=== PATIENT | female | born 1945 | race Caucasian/White ===

== ENCOUNTER → 2016-05-01 | Outpatient (CLI) | payer MEDICARE, OTHER ==
[2016-05-01 10:47] LABS: Basophils # (A) 0.1 k/uL (0-0.2); Basophils % (A) 1 %; CHCM 34.1; Eosinophils # (A) 0.1 k/uL (0-0.7); Eosinophils % (A) 2 %; HCT 39.8 % (34.0-46.0); HDW 2.75; HGB 13.3 gm/dL (11.4-16.0); Luc # (Auto) 0.18; Luc % (Auto) 3; Lymphocytes # (A) 2.4 k/uL (1.0-4.8); Lymphocytes % (A) 41 %; MCH 30.6 pg (25.0-35.0); MCHC 33.5 g/dL (31.0-37.0); MCV 91.4 fL (80.0-100.0); Mean Platelet Volume 8.1; Monocytes # (A) 0.4 k/uL (0-1.0); Monocytes % (A) 6 %; Neutrophils # (A) 2.8 k/uL (1.3-7.7); Neutrophils % (A) 47 %; RBC 4.36 m/uL (3.80-5.40); RDW 13.9 % (11.5-15.5); WBC 5.8 k/uL (3.8-10.6); WBC (Perox) 5.79
[2016-05-01 11:11] LABS: ALT 25 U/L (9-52); AST 15 U/L (14-36); Alkaline Phosphatase 47 U/L (38-126); Anion Gap 10 mmol/L; Blood Urea Nitrogen 19 mg/dL (7-17); Calcium 9.2 mg/dL (8.4-10.2); Carbon Dioxide 28 mmol/L (22-30); Chloride 102 mmol/L (98-107); Glucose 102 mg/dL (74-99); Non-African American GFR(MDRD) >60 (>60 ml/min/1.73 sqM); Potassium 3.5 mmol/L (3.5-5.1); Sodium 140 mmol/L (137-145); Total Bilirubin 0.9 mg/dL (0.2-1.3); Total Protein 7.9 g/dL (6.3-8.2)
== END ==
LOC: LABWHC1 09:31
PROVIDERS: ATTEND Internal Medicine
DX: R53.83 Other fatigue (principal); R55 Syncope and collapse; R73.9 Hyperglycemia, unspecified
CPT/HCPCS: 36415; 80053; 83036; 84439; 84443; 85025

== ENCOUNTER → 2016-05-27 | Outpatient (CLI) | payer MEDICARE, OTHER ==
--- NOTE | 2016-05-27 12:23 | US ---
EXAMINATION TYPE: US carotid duplex BILAT DATE OF EXAM: 05/27/2016 11:17 AM COMPARISON: NONE CLINICAL HISTORY: R42 DIZZINESS. no h/o stroke EXAM MEASUREMENTS: RIGHT: Peak Systolic Velocity (PSV) cm/sec ----- Right CCA: 98.4 ----- Right ICA: 93.1 ----- Right ECA: 79.8 ICA/CCA ratio: 0.9 RIGHT: End Diastole cm/sec ----- Right CCA: 24.6 ----- Right ICA: 39.1 ----- Right ECA: 13.5 LEFT: Peak Systolic Velocity (PSV) cm/sec ----- Left CCA: 80.7 ----- Left ICA: 106.6 ----- Left ECA: 82.2 ICA/CCA ratio: 1.3 LEFT: End Diastole cm/sec ----- Left CCA: 27.9 ----- Left ICA: 35.4 ----- Left ECA: 21.6 VERTEBRALS (direction of flow): Right Vertebral: Antegrade Left Vertebral: Antegrade Mild homogeneous plaque with no significant stenosis seen Grayscale images show no significant focal plaque in carotid bulb levels bilaterally. Velocity measur ements and ratios remain within normal limits. IMPRESSION: No hemodynamically significant stenosis is seen in either internal carotid artery.
== END | disposition home or self-care (01) ==
LOC: RADUSWWP 10:51
PROVIDERS: ATTEND Family Medicine
DX: R42 Dizziness and giddiness (principal)
CPT/HCPCS: 93880

== ENCOUNTER → 2016-06-05 | Outpatient (CLI) | payer MEDICARE, OTHER ==
--- NOTE | 2016-06-05 11:59 | XR ---
EXAMINATION TYPE: XR cervical spine limited DATE OF EXAM: 06/05/2016 11:44 AM COMPARISON: NONE HISTORY: Cervical lumbar pain TECHNIQUE: 3 view cervical spine FINDINGS: Facet changes are evident slightly greater on the right side. Degenerative disc changes are present C5-6 C6-7. Posterior endplate spurring is present C6-7. Vertebral body spurring is present C 5-C7 anteriorly. Posterior spinal lamellar line is intact. IMPRESSION: 1. Degenerative disc changes mid to lower cervical spine
--- NOTE | 2016-06-05 12:10 | XR ---
EXAMINATION TYPE: XR lumbar spine 2 or 3V DATE OF EXAM: 06/05/2016 11:44 AM COMPARISON: NONE HISTORY: Right hip pain lumbar spine pain TECHNIQUE: 3 view lumbar spine FINDINGS: Mild degenerative disc change is present L1-L2. Spondylosis is present. Vascular calcificat ions noted within the aorta. IMPRESSION: 1. Mild degenerative change lumbar spine
== END | disposition home or self-care (01) ==
LOC: RADXRMAIN 11:15
PROVIDERS: ATTEND Chiropractor
DX: M50.322 Other cervical disc degeneration at C5-C6 level (principal); M51.36 Other intervertebral disc degeneration, lumbar region
CPT/HCPCS: 72040; 72100

== ENCOUNTER → 2017-10-13 | Outpatient (CLI) | payer MEDICARE ==
--- NOTE | 2017-10-21 14:11 | MM ---
Reason for exam: screening (asymptomatic). Last mammogram was performed 3 years and 1 month ago. History: Patient is postmenopausal. Physical Findings: A clinical breast exam by your physician is recommended on an annual basis and results should be correlated with mammographic findings. MG 3D Screening Mammo W/Cad Bilateral CC and MLO view(s) were taken. Prior study comparison: September 10, 2014, mammogram, performed at [facility]. June 29, 2013, mammogram, performed at [facility]. The breast tissue is heterogeneously dense. This may lower the sensitivity of mammography. No significant changes when compared with prior studies. ASSESSMENT: Benign, BI-RAD 2 RECOMMENDATION: Routine screening mammogram of both breasts in 1 year.
== END | disposition home or self-care (01) ==
LOC: RADMAMWWP 09:09
PROVIDERS: ATTEND Internal Medicine
DX: Z12.31 Encounter for screening mammogram for malignant neoplasm of breast (principal)
CPT/HCPCS: 77063; 77067

== ENCOUNTER → 2018-04-01 | Outpatient (CLI) | payer MEDICARE ==
[2018-04-01 09:18] LABS: Basophils % (A) 0 %; Eosinophils # (A) 0.2 k/uL (0-0.7); Eosinophils % (A) 3 %; HGB 13.2 gm/dL (11.4-16.0); Lymphocytes # (A) 1.9 k/uL (1.0-4.8); Lymphocytes % (A) 34 %; MCH 29.8 pg (25.0-35.0); MCHC 32.9 g/dL (31.0-37.0); MCV 90.6 fL (80.0-100.0); Mean Platelet Volume 7.7; Monocytes # (A) 0.3 k/uL (0-1.0); Monocytes % (A) 6 %; Neutrophils % (A) 54 %; Platelet Count 203 k/uL (150-450); RBC 4.42 m/uL (3.80-5.40); RDW 14.1 % (11.5-15.5); WBC 5.5 k/uL (3.8-10.6)
[2018-04-01 19:12] LABS: Anion Gap 6.1 mmol/L (4.00-12.00); Calcium 9.1 mg/dL (8.7-10.3); Carbon Dioxide 29.9 mmol/L (21.6-31.8); LDL Cholesterol,Calculated 101.6 mg/dL (0.0-131.0); Potassium 3.6 mmol/L (3.5-5.5); VLDL Calculation 25.4 mg/dL (5.00-40.00)
== END | disposition home or self-care (01) ==
LOC: LABWHC1 07:41
PROVIDERS: ATTEND Nurse Practitioner Adult Health
DX: Z00.01 Encounter for general adult medical examination with abnormal findings (principal); I10 Essential (primary) hypertension; E03.9 Hypothyroidism, unspecified; E66.09 Other obesity due to excess calories; R53.83 Other fatigue
CPT/HCPCS: 36415; 80048; 80061; 82607; 84443; 85025

== ENCOUNTER → 2018-11-11 | Outpatient (CLI) | payer MEDICARE ==
--- NOTE | 2018-11-11 10:39 | XR ---
Right shoulder HISTORY: Shoulder pain 4 views of the right shoulder Bone mineralization, joint spaces and alignment are maintained. Question a focus of increased calcifi cation at the superior glenohumeral joint seen on the external rotated view. Distal acromion is down turned. There is some arthropathy present at the acromioclavicular joint. Right lung apex as visualiz ed is normal. IMPRESSION: Correlate for impingement. Difficult to exclude loose body, shoulder CT or MRI may be of benefit.
--- NOTE | 2018-11-11 10:43 | XR ---
Right RIBS HISTORY: Pleurodynia 4 views of the right RIBS Bone mineralization is maintained. No evident displaced rib fracture. Right lung is unremarkable as s een. Degenerative disc changes are noted in the visualized spine. Ossific density at the level the an terior right fourth rib, posterior right eighth rib intersection may be related to the scapula. IMPRESSION: Chest CT may be of benefit to further assess bony density seen overlying the ribs., bone scan could be performed for increased sensitivity if nondisplaced rib fracture is suspected clinicall y.
== END ==
LOC: RADXRMAIN 08:28
PROVIDERS: ATTEND Internal Medicine
DX: M25.511 Pain in right shoulder (principal); R07.81 Pleurodynia

== ENCOUNTER → 2018-11-22 | Outpatient (CLI) | payer MEDICARE ==
--- NOTE | 2018-11-22 09:47 | BD ---
EXAMINATION TYPE: Axial Bone Density DATE OF EXAM: 11/22/2018 COMPARISON: NONE CLINICAL HISTORY: Z 78.0 Height: 5 FT 4 1/4 IN Weight: 195 FRAX RISK QUESTIONS: Family History (Parent hip fracture): YES Secondary Osteoporosis: RISK FACTORS HISTORY OF: Active: YES Postmenopausal woman: AGE 52 Lost more than 2 inches in height since high school: YES MEDICATIONS: Additional Medications: LOSARTIN, BABY ASPIRIN Additional History: EXAM MEASUREMENTS: Bone mineral densitometry was performed using the e[employer]ruction by [employer]. Bone mineral density as measured about the Lumbar spine is: ----- L1-L4(G/cm2): 1.316 T Score Values are as follows: ----- L2: 0.4 ----- L3: 1.3 ----- L4: 1.8 ----- L1-L4: 1.1 BASELINE Bone mineral density about the R hip (g/cm2): 0.992 Bone mineral density about the L hip (g/cm2): 1.070 T Score values are as follows: -----R Neck: -0.3 -----L Neck: 0.2 -----R Total: 0.5 -----L Total: 0.9 BASELINE IMPRESSION: Normal (Values between +1 and -1 indicate normal bone mass). Consider repeating this study in 5 year s or sooner if there is some new clinical indication. NOTE: T-SCORE=SD OF THE YOUNG ADULT MEAN.
--- NOTE | 2018-11-24 12:15 | MM ---
Reason for exam: screening (asymptomatic). Last mammogram was performed 1 year and 1 month ago. History: Patient is postmenopausal. Physical Findings: A clinical breast exam by your physician is recommended on an annual basis and results should be correlated with mammographic findings. MG 3D Screening Mammo W/Cad Bilateral CC and MLO view(s) were taken. Prior study comparison: October 13, 2017, bilateral MG 3d screening mammo w/cad. September 10, 2014, mammogram, performed at [facility]. The breast tissue is extremely dense which could obscure a lesion on mammography. Left central distortion 2.5cm from nipple at anterior depth. ASSESSMENT: Incomplete: need additional imaging evaluation, BI-RAD 0 RECOMMENDATION: Special view mammogram of the left breast. If lesion persists on supplemental views, image directed ultrasound is recommended. [facility] will attempt to contact patient to return for supplemental views and ultrasound if indicated.
== END ==
LOC: RADMAMWWP 08:47
PROVIDERS: ATTEND Internal Medicine
DX: Z12.31 Encounter for screening mammogram for malignant neoplasm of breast (principal); R92.8 Other abnormal and inconclusive findings on diagnostic imaging of breast; Z78.0 Asymptomatic menopausal state
CPT/HCPCS: 77063; 77067; 77080

== ENCOUNTER → 2018-11-26 | Outpatient (CLI) | payer MEDICARE ==
--- NOTE | 2018-11-26 11:58 | MR ---
EXAMINATION TYPE: MR shoulder RT wo con DATE OF EXAM: 11/26/2018 COMPARISON: X-ray 11/11/2018 HISTORY: Rt shoulder pain x 1 year, no trauma TECHNIQUE: Multiplanar, multisequence imaging of the right shoulder is performed without contrast. FINDINGS: There is a complete through thickness tear of the supraspinatus tendon with retraction the level the acromion. There is a near complete through thickness tear of the infraspinatus tendon with a few fibers remain intact. Subscapularis tendon appears intact with increased signal near its insertion which may represent tend inopathy or partial tear. There is arthropathy of the AC joint with a spur extending off the acromium likely results in impinge ment etiology of the rotator cuff tear. Glenohumeral ligaments are intact. There is mild narrowing of the glenohumeral joint. Cystic changes involving the glenoid are noted and there is narrowing of the glenohumeral joint. No sizable joint ef fusion. Suprascapular Notch has a normal appearance. Bicipital tendon well situated the bicipital groove. There is increased signal within the intracapsul ar portion of the biceps tendon suggestive of tendinopathy and possible split tear. A small amount of fluid in the subacromial subdeltoid bursa. Increased signal involving the superior labrum suspicious for tear. IMPRESSION: 1. Complete through thickness tear with retraction of the supraspinatus tendon as discussed above. 2. Near complete through thickness tear of the infraspinatus tendon with a few fibers remaining at th e insertion as discussed above. 3. Increased signal within the biceps tendon within the intracapsular portion may be on the basis of tendinopathy. Split tear in the differential diagnosis. 4. Arthropathy of the glenohumeral joint and AC joint correlate for impingement. 5. Suspicion of a anterior superior labral tear.
== END | disposition home or self-care (01) ==
LOC: RADMRIMAIN 09:32
PROVIDERS: ATTEND Nurse Practitioner Adult Health
DX: M75.121 Complete rotator cuff tear or rupture of right shoulder, not specified as traumatic (principal); S46.811A Strain of other muscles, fascia and tendons at shoulder and upper arm level, right arm, initial encounter; M19.011 Primary osteoarthritis, right shoulder

== ENCOUNTER → 2018-12-01 | Outpatient (CLI) | payer MEDICARE ==
--- NOTE | 2018-12-01 14:20 | MM ---
Reason for exam: additional evaluation requested from abnormal screening. Last mammogram was performed less than 1 month ago. History: Patient is postmenopausal. Physical Findings: Nurse did not find any significant physical abnormalities on exam. MG 3D Work Up W/Cad LT CC and MLO view(s) were taken of the left breast. Prior study comparison: November 22, 2018, bilateral MG 3d screening mammo w/cad. October 13, 2017, bilateral MG 3d screening mammo w/cad. The breast tissue is heterogeneously dense. This may lower the sensitivity of mammography. The previously seen abnormality resolves on additional views and appears as fibroglandular tissue compatible with summation. These results were verbally communicated with the patient and result sheet given to the patient on 12/01/18. ASSESSMENT: Negative, BI-RAD 1 RECOMMENDATION: Return to routine screening mammogram schedule for both breasts.
== END | disposition home or self-care (01) ==
LOC: RADMAMWWP 13:25
PROVIDERS: ATTEND Internal Medicine
DX: R92.8 Other abnormal and inconclusive findings on diagnostic imaging of breast (principal)
CPT/HCPCS: 77065; G0279; 77061

== ENCOUNTER → 2018-12-07 | Outpatient (CLI) | payer MEDICARE ==
--- NOTE | 2018-12-07 10:17 | CT ---
EXAMINATION TYPE: CT abdomen pelvis w con DATE OF EXAM: 12/07/2018 HISTORY: Lower abd pain, UTI CT DLP: 1445mGycm Automated Exposure Control for Dose Reduction was Utilized. CONTRAST: CT scan of the abdomen and pelvis is performed with IV Contrast, patient injected with 100 mL of Isov ue 300. COMPARISON: None. FINDINGS: LUNG BASES: No significant abnormality is appreciated. LIVER/GB: Liver is diffusely low dense suggesting fatty infiltration. PANCREAS: No significant abnormality is seen. SPLEEN: No significant abnormality is seen. ADRENALS: No significant abnormality is seen. KIDNEYS: Subcentimeter low dense lesion laterally left kidney midpole level series 7 image 34 too sma ll to further characterize but presumed benign. Symmetric corticomedullary uptake and excretion witho ut hydronephrosis. No suspicious bladder wall thickening. BOWEL: Oral contrast reaches level of the mid sigmoid colon. There is no suspicious small or large jose wel dilatation. There is prominent diverticulosis mid to distal sigmoid colon level without CT eviden ce for acute diverticulitis. UTERUS/ADNEXA: Anteverted uterus. LYMPH NODES: No greater than 1cm abdominal or pelvic lymph nodes are appreciated. OSSEOUS STRUCTURES: Osncxxwi-eu-hxfjea multilevel anterior and lateral spurring in the mid to lower t horacic spine is present. Moderate narrowing and acetabular spurring both hips. OTHER: No significant additional abnormality is seen. IMPRESSION: Sigmoid colonic diverticulosis without CT evidence for acute diverticulitis. No suspiciou s acute findings are evident.
== END | disposition home or self-care (01) ==
LOC: RADCTMAIN 07:53
PROVIDERS: ATTEND Internal Medicine
DX: K57.30 Diverticulosis of large intestine without perforation or abscess without bleeding (principal); R63.4 Abnormal weight loss
CPT/HCPCS: 82565; 84520; 74177; 36415; Q9967 ×2

== ENCOUNTER → 2019-12-14 | Outpatient (CLI) | payer MEDICARE ==
--- NOTE | 2019-12-14 13:06 | US ---
EXAMINATION TYPE: US abdomen complete DATE OF EXAM: 12/14/2019 COMPARISON: CT abdomen pelvis 12/07/2018 CLINICAL HISTORY: R10.2 R10.31 RLQ pain R10.32. Generalized lower abdomen pain. NPO. EXAM MEASUREMENTS: Liver Length: 15.3 cm Gallbladder Wall: 0.1 cm CBD: 0.7 cm Spleen: 10.7 cm Right Kidney: 10.3 x 4.7 x 4.7 cm Left Kidney: 10.4 x 4.9 x 5.2 cm Pancreas: Normal. Liver: Increased attenuation, decreased visualization of vessels consistent with fatty infiltration. There is poor posterior beam penetration of the posterior liver due to fatty infiltration. Gallbladder: Cholelithiasis. No gallbladder wall thickening or pericholecystic edema. Sweatband Maker reports negative sonographic Melendez sign. CBD: Normal. Spleen: Normal. Right Kidney: No hydronephrosis. Left Kidney: No hydronephrosis. Upper IVC: Obscured by overlying bowel gas Abd Aorta: Nonaneurysmal. IMPRESSION: 1. Markedly fatty liver. Limited visualization of the posterior liver due to fatty infiltration. 2. Cholelithiasis. No acute cholecystitis.
== END | disposition home or self-care (01) ==
LOC: RADUSWWP 08:31
PROVIDERS: ATTEND Family Medicine
DX: K76.0 Fatty (change of) liver, not elsewhere classified (principal); K80.20 Calculus of gallbladder without cholecystitis without obstruction
CPT/HCPCS: 76700

== ENCOUNTER → 2019-12-22 | Outpatient (CLI) | payer MEDICARE ==
--- NOTE | 2019-12-23 15:29 | US ---
EXAMINATION TYPE: US transvaginal DATE OF EXAM: 12/22/2019 COMPARISON: NONE CLINICAL HISTORY: R10.2 Pelvic Pain. Pelvic pain TECHNIQUE: Transvaginal (TV). Date of LMP: unknown EXAM MEASUREMENTS: Uterus: 6.4 x 2.7 x 3.8 cm Endometrial Stripe: 0.2 cm 1. Uterus: Anteverted heterogeneous, multiple calcifications, nabothian cyst 2. Endometrium: appears wnl 3. Right Ovary/adnexa: Unilocular simple cystic area right adnexa = 1.8 x 1.4 x 1.4cm, unable to vis ualize any ovarian tissue 4. Left Ovary: Obscured by overlying bowel gas 5. Left Adnexa: wnl 6. Posterior cul-de-sac: wnl IMPRESSION: 1. Right adnexal 1.8 cm simple benign appearing cyst. Per The Society of Radiologists in Ultrasound 2 019 recommendations, no additional follow-up is recommended. 2. Nonvisualization of the left ovary. 3. Endometrial stripe 2 mm, within normal limits. 4. Calcifications of the uterus may represent fibroid changes. 5. No pelvic free fluid.
== END | disposition home or self-care (01) ==
LOC: RADUSWWP 15:28
PROVIDERS: ATTEND Nurse Practitioner Adult Health
DX: N83.8 Other noninflammatory disorders of ovary, fallopian tube and broad ligament (principal)
CPT/HCPCS: 76830

== ENCOUNTER → 2020-02-05 | Outpatient (CLI) | payer MEDICARE ==
--- NOTE | 2020-02-06 12:38 | MM ---
Reason for exam: screening (asymptomatic). Last mammogram was performed 1 year and 2 months ago. History: Patient is postmenopausal. Took hormonal contraceptives for 8 years. Physical Findings: A clinical breast exam by your physician is recommended on an annual basis and results should be correlated with mammographic findings. MG 3D Screening Mammo W/Cad Bilateral CC and MLO view(s) were taken. Prior study comparison: December 01, 2018, left breast MG 3d work up w/cad LT. November 22, 2018, bilateral MG 3d screening mammo w/cad. The breast tissue is heterogeneously dense. This may lower the sensitivity of mammography. There is no discrete abnormality. No significant changes when compared with prior studies. ASSESSMENT: Negative, BI-RAD 1 RECOMMENDATION: Routine screening mammogram of both breasts in 1 year.
== END | disposition home or self-care (01) ==
LOC: RADMAMWWP 07:04
PROVIDERS: ATTEND Family Medicine
DX: Z12.31 Encounter for screening mammogram for malignant neoplasm of breast (principal)
CPT/HCPCS: 77063; 77067

== ENCOUNTER → 2021-04-28 | Outpatient (CLI) | payer MEDICARE ==
--- NOTE | 2021-04-28 10:25 | US ---
EXAMINATION TYPE: US transvaginal DATE OF EXAM: 04/28/2021 COMPARISON: US 2019 CLINICAL HISTORY: R10.9 ABD/PELVIC PAIN,R10.2 FEMALE PELVIC PAIN. Intermittent back pain and pelvic c ramping x couple months, 2, para 2, history of tubal ligation TECHNIQUE: Transvaginal exam only per ordering physician Date of LMP: 1999 EXAM MEASUREMENTS: Uterus: 6.1 x 2.6 x 3.4 cm Endometrial Stripe: 0.4 cm Right Ovary: not seen Left Ovary: not seen 1. Uterus: anteverted, heterogeneous, multiple calcifications 2. Endometrium: appears wnl 3. Right Ovary: not seen 4. Left Ovary: not seen 5. Bilateral Adnexa: wnl 6. Posterior cul-de-sac: wnl IMPRESSION: Heterogenous uterine myometrium with multiple calcifications seen.
--- NOTE | 2021-04-28 10:25 | US ---
EXAMINATION TYPE: US abdomen complete DATE OF EXAM: 04/28/2021 COMPARISON: US 2019 CLINICAL HISTORY: R10.84 ABD PAIN. Intermittent back pain and pelvic cramping x couple months EXAM MEASUREMENTS: Liver Length: 13.8 cm Gallbladder Wall: 0.2 cm CBD: 0.7 cm Spleen: 10.6 cm Right Kidney: 10.1 x 5.2 x 4.8 cm Left Kidney: 11.0 x 4.7 x 5.1 cm Pancreas: hyperechoic Liver: attenuating, heterogeneous Gallbladder: cholelithiasis Evidence for sonographic Melendez's sign: no CBD: dilated Spleen: wnl Right Kidney: wnl Left Kidney: 0.6cm echogenic focus superior pole Upper IVC: wnl Abd Aorta: wnl The intrahepatic portion of the IVC and proximal abdominal aorta are within normal limits. The visua lized portions of the pancreas are homogenous. The spleen is unremarkable. Kidneys are symmetric an d free of hydronephrosis. No renal lesions are seen. IMPRESSION: 1. Heterogeneity of the liver may reflect fatty liver. 2. Cholelithiasis. 3. Nonobstructing left renal calculus.
== END | disposition home or self-care (01) ==
LOC: RADUSWWP 09:23
PROVIDERS: ATTEND Family Medicine
DX: K80.20 Calculus of gallbladder without cholecystitis without obstruction (principal); N20.0 Calculus of kidney; N85.8 Other specified noninflammatory disorders of uterus
CPT/HCPCS: 76700; 76830

== ENCOUNTER → 2021-05-08 | Outpatient (CLI) | payer MEDICARE ==
--- NOTE | 2021-05-09 10:54 | CT ---
EXAMINATION TYPE: CT abdomen pelvis wo/w con DATE OF EXAM: 05/08/2021 COMPARISON: 12/07/2018 HISTORY: Lower back pain x [address] DLP: 2592.7 mGycm Automated exposure control for dose reduction was used. CONTRAST: CT scan of the abdomen pelvis is performed with IV Contrast, patient injected with 100ml mL of Isovue 300. FINDINGS- LUNG BASES- No significant abnormality is appreciated. LIVER/GB- No gross abnormality is appreciated. PANCREAS- No gross abnormality is seen. SPLEEN- No gross abnormality is seen. ADRENALS- No gross abnormality is seen. KIDNEYS/BLADDER- no hydronephrosis or nephrolithiasis. Subcentimeter hypodensity left kidney too smal l to characterize. Finding is stable and therefore likely benign. BOWEL-bowel gas pattern nonspecific. Changes of diverticulosis appendix normal. Small hiatal hernia n oted. LYMPH NODES- No greater than 1cm abdominal or pelvic lymph nodes areappreciated. OSSEOUS STRUCTURES-multilevel hypertrophic and degenerative change of the spine. There is facet arthr opathy particularly noted in the lower lumbar spine with grade 1 anterolisthesis L4 on L5. Correlate for canal stenosis and foraminal encroachment.. OTHER- aorta of normal caliber with atherosclerotic changes. Stable appearing right adnexal cyst lik luli ovarian measuring 1.7 cm. IMPRESSION- 1. Multilevel degenerative disc disease and facet arthropathy with grade 1 anterolisthesis L4 on L5. Suspect canal stenosis and bilateral foraminal encroachment. 2. No evidence of renal stone or hydronephrosis. 3. Diverticulosis 4. Small hiatal hernia
== END | disposition home or self-care (01) ==
LOC: RADCTMAIN 16:45
PROVIDERS: ATTEND Family Medicine
DX: M51.36 Other intervertebral disc degeneration, lumbar region (principal); M47.816 Spondylosis without myelopathy or radiculopathy, lumbar region; M43.16 Spondylolisthesis, lumbar region; K57.90 Diverticulosis of intestine, part unspecified, without perforation or abscess without bleeding; K44.9 Diaphragmatic hernia without obstruction or gangrene
CPT/HCPCS: 82565; 84520; 74178; 36415; Q9967

== ENCOUNTER → 2021-08-28 | Outpatient (CLI) | payer MEDICARE ==
[2021-08-28 10:46] LABS: Basophils # (A) 0.02 X 10*3/uL (0.00-0.10); Basophils % (A) 0.3 %; Eosinophils # (A) 0.17 X 10*3/uL (0.04-0.35); Eosinophils % (A) 2.4 %; HCT 40.3 % (37.2-46.3); HGB 13.3 g/dL (12.0-15.0); Immature Grans, Automated 0.4 %; Lymphocytes % (A) 39.9 %; MCH 30.4 pg (27.0-32.0); Mean Platelet Volume 10.8 fL (9.5-12.2); Monocytes % (A) 8.6 %; NRBC Per 100 WBC 0 /100 WBCS (0.0-0.0); Neutrophils # (A) 3.39 X 10*3/uL (1.80-7.70); Neutrophils % (A) 48.4 %; Platelet Count 219 X 10*3/uL (140-440); RBC 4.38 X 10*6/uL (4.10-5.20); RDW 14.3 % (11.5-14.5); WBC 7.01 X 10*3/uL (4.50-10.00)
[2021-08-28 11:06] LABS: ALT 22 U/L (8-44); AST 16 U/L (13-35); African American GFR (CKD) 78.8 (60.0-200.0); Albumin 3.9 g/dL (3.8-4.9); Albumin/Globulin Ratio 1.16 (1.60-3.17); Alkaline Phosphatase 45 U/L (41-126); BUN/Creat Ratio 18.47 Ratio (12.00-20.00); Blood Urea Nitrogen 15.7 mg/dL (9.0-27.0); Calcium 9.4 mg/dL (8.7-10.3); Carbon Dioxide 25.8 mmol/L (20.0-27.5); Chloride 103 mmol/L (96-109); Chol/HDL Ratio 4.73 Ratio; Globulin 3.4 g/dL (1.6-3.3); Glucose 117 mg/dL (70-110); LDL Cholesterol,Calculated 115.1 mg/dL (0.0-131.0); Magnesium 2.2 mg/dL (1.5-2.4); Potassium 3.8 mmol/L (3.5-5.5); Sodium 140 mmol/L (135-145); Total Protein 7.3 g/dL (6.2-8.2)
--- NOTE | 2021-08-29 08:04 | MM ---
Reason for Exam: Screening (asymptomatic). Last mammogram was performed 1 year(s) and 7 month(s) ago. Patient History: Menarche at age 16. First Full-Term at age 20. Postmenopausal. Patient used Hormonal Contraceptives for 8 years. Risk Values: Melita 5 year model risk: 1.2%. NCI Lifetime model risk: 2.9%. Prior Study Comparison: 11/22/2018 Bilateral Screening Mammogram, [facility]. 12/01/2018 Left Diagnostic Mammogram, [facility]. 02/05/2020 Bilateral Screening Mammogram, [facility]. Tissue Density: The breast tissue is heterogeneously dense. This may lower the sensitivity of mammography. Findings: Analyzed By CAD. Tiny well-defined round mass left breast upper outer aspect is stable from prior mammograms. There is no suspicious group of microcalcifications or new suspicious mass in either breast. Overall Assessment: Negative, BI-RAD 1 Management: Screening Mammogram of both breasts in 1 year. A clinical breast exam by your physician is recommended on an annual basis and results should be correlated with mammographic findings. Electronically signed and approved by: [place] M.D.
== END | disposition home or self-care (01) ==
LOC: RADMAMWWP 06:43
PROVIDERS: ATTEND Internal Medicine
DX: Z12.31 Encounter for screening mammogram for malignant neoplasm of breast (principal); Z78.0 Asymptomatic menopausal state
CPT/HCPCS: 77063; 77067; 80053; 80061; 82533; 83036; 83735; 84443; 85025

== ENCOUNTER → 2021-09-15 | Outpatient (CLI) | payer MEDICARE ==
--- NOTE | 2021-09-15 09:25 | US ---
EXAMINATION TYPE: US carotid duplex BILAT DATE OF EXAM: 09/15/2021 COMPARISON: Carotid US 05/27/2016. CLINICAL HISTORY: R42 LIGHT HEADED. Dizziness. TECHNIQUE: Carotid duplex ultrasound examination. Indirect Doppler criteria was utilized. FINDINGS: EXAM MEASUREMENTS: RIGHT: Peak Systolic Velocity (PSV) cm/sec ----- Right CCA: 100.9 ----- Right ICA: 119.5 ----- Right ECA: 101.7 ICA/CCA ratio: 1.2 RIGHT: End Diastole cm/sec ----- Right CCA: 23.5 ----- Right ICA: 39.4 ----- Right ECA: 8.3 LEFT: Peak Systolic Velocity (PSV) cm/sec ----- Left CCA: 85.3 ----- Left ICA: 122.8 ----- Left ECA: 83.8 ICA/CCA ratio: 1.4 LEFT: End Diastole cm/sec ----- Left CCA: 23.4 ----- Left ICA: 43.6 ----- Left ECA: 10.5 VERTEBRALS (direction of flow): Right Vertebral: Antegrade Left Vertebral: Antegrade Rhythm: Normal Grayscale images show no significant focal plaque bilateral carotid bulb level. IMPRESSION: No hemodynamically significant stenosis in either internal carotid artery. Criteria for Assigning % of Stenosis / Diameter reduction (Estimation based on the indirect measurements of the internal carotid artery velocities (ICA PSV). 1. Normal (no stenosis)=ICA PSV < 125 cm/s: ratio < 2.0: ICA EDV<40 cm/s. 2. Less than 50% stenosis=ICA PSV < 125 cm/s: ratio < 2.0: ICA EDV<40 cm/s. 3. 50 to 69% stenosis=ICA PSV of 125 to 230 cm/s: ration 2.0 ? 4.0: ICA EDV 40-100 cm/s. 4. Greater than 70% stenosis to near occlusion= ICA PSV > 230 cm/s: ratio > 4.0: ICA EDV > 100 cm/s. 5. Near occlusion= ICA PSV velocities may be low or undetectable: variable ratio and ICA EDV. 6. Total occlusion=unable to detect flow.
--- NOTE | 2021-09-15 09:38 | CA ---
Transthoracic Echo Report Name: Rhonda Treviño Age: 75 Gender: F : 1945 Exam Date: 09/15/2021 08:38 Exam Location: [facility] Ht (in): 66 Wt (lb): 206 Ordering Physician: Miguel Simental MD Attending/Referring Phys: Miguel Simental MD Paving Supervisor Morenita Benitez, SRINIVAS Procedure CPT: Indications: R42 lightheadedness Cardiac Hx: Technical Quality: Good Contrast 1: Total Dose (mL): Contrast 2: Total Dose (mL): MEASUREMENTS (Male / Female) Normal Values 2D ECHO LV Diastolic Diameter PLAX 5.2 cm 4.2 - 5.9 / 3.9 - 5.3 cm LV Systolic Diameter PLAX 3.8 cm IVS Diastolic Thickness 0.8 cm 0.6 - 1.0 / 0.6 - 0.9 cm LVPW Diastolic Thickness 1.3 cm 0.6 - 1.0 / 0.6 - 0.9 cm LV Relative Wall Thickness 0.4 RV Internal Dim ED PLAX 3.0 cm LA Systolic Diameter LX 4.0 cm 3.0 - 4.0 / 2.7 - 3.8 cm LA Volume 50.9 cm??? 18 - 58 / 22 - 52 cm??? M-MODE Aortic Root Diameter MM 2.6 cm LA Systolic Diameter MM 3.8 cm LA Ao Ratio MM 1.5 AV Cusp Separation MM 1.9 cm DOPPLER MV Area PHT 3.8 cm??? Mitral E Point Velocity 59.3 cm/s Mitral A Point Velocity 86.1 cm/s Mitral E to A Ratio 0.7 MV Deceleration Time 198.2 ms FINDINGS Left Ventricle Normal left ventricular size, wall thickness, systolic function with no obvious regional wall motion abnormalities. Left ventricular ejection fraction is estimated at 50-55%. Right Ventricle The right ventricle is normal in size and function. Right Atrium The right atrium is normal in size. Left Atrium The left atrium is normal in size. Mitral Valve Structurally normal mitral valve without significant stenosis or prolapse. There is mild mitral regurgitation. Aortic Valve Structurally normal aortic valve without significant sclerosis or stenosis. There is no aortic regurgitation. Tricuspid Valve Structurally normal tricuspid valve without significant stenosis. Pulmonary artery systolic pressure is normal. Pulmonic Valve Structurally normal pulmonic valve without significant stenosis. There is no pulmonic regurgitation. Pericardium Normal pericardium without effusion. Aorta Normal aortic root dimension. CONCLUSIONS Normal LV size and systolic function without segmental wall motion abnormalities No significant valvular abnormalities Previewed by: Dr. Scott Danielson MD (Electronically Signed) Final Date: 15 September 2021 09:37
== END | disposition home or self-care (01) ==
LOC: RADECHMAIN 08:26
PROVIDERS: ATTEND Internal Medicine
DX: R42 Dizziness and giddiness (principal)
CPT/HCPCS: 93306; 93880

== ENCOUNTER → 2021-11-12 | Outpatient (CLI) | payer MEDICARE ==
[2021-11-12 14:33] LABS: Partial Thromboplastin Time 24.1 sec (22.0-30.0); Prothrombin Time 10.5 sec (9.0-12.0)
[2021-11-12 18:03] LABS: HCT 43.5 % (37.2-46.3); HGB 13.7 g/dL (12.0-15.0); MCHC 31.5 g/dL (32.0-37.0); Mean Platelet Volume 10.8 fL (9.5-12.2); NRBC Per 100 WBC 0 /100 WBCS (0.0-0.0); Platelet Count 263 X 10*3/uL (140-440); RBC 4.73 X 10*6/uL (4.10-5.20); RDW 14.5 % (11.5-14.5); WBC 8.53 X 10*3/uL (4.50-10.00)
[2021-11-12 18:09] LABS: African American GFR (CKD) 87.1 (60.0-200.0); Albumin 3.9 g/dL (3.8-4.9); Albumin/Globulin Ratio 0.94 (1.60-3.17); Anion Gap 11.8 mmol/L (10.00-18.00); BUN/Creat Ratio 18.25 Ratio (12.00-20.00); Blood Urea Nitrogen 14.2 mg/dL (9.0-27.0); Calcium 9.6 mg/dL (8.7-10.3); Carbon Dioxide 25.1 mmol/L (20.0-27.5); Globulin 4.1 g/dL (1.6-3.3); Non-African American GFR(CKD) 75.1 (60.0-200.0); Potassium 3.9 mmol/L (3.5-5.5); Total Bilirubin 0.2 mg/dL (0.30-1.20)
[2021-11-12 20:04] LABS: Appearance,Urine Cloudy (Clear); Bilirubin,Urine Negative (Negative); Blood,Urine Moderate (Negative); Color,Urine Yellow (Yellow); Ketones,Urine Negative (Negative); Nitrite,Urine Positive (Negative); PH, Urine 5.5 (5.0-8.0); Specific Gravity,Urine 1.017 (1.001-1.030); Urobilinogen,Urine 0.2 (0.2,1.0)
[2021-11-12 20:38] LABS: Bacteria,Urine 4+ /HPF (None Seen)
== END | disposition home or self-care (01) ==
LOC: LABPAT 11:43
PROVIDERS: ATTEND Orthopaedic Surgery
DX: Z01.818 Encounter for other preprocedural examination (principal); M16.11 Unilateral primary osteoarthritis, right hip
CPT/HCPCS: 80053; 81001; 83036; 85027; 85610; 85730; 87070; 93005

== ENCOUNTER 2021-11-19 09:05 | Day surgery (SDC) | payer MEDICARE ==
[~2021-11-19 09:05] MED LIST: ACETAMINOPHEN TAB 500 MG TAB PO PRN; DEXAMETHASONE SOD PHOSPHATE 10 MG/ML 1 ML VIAL IV PRN; DEXAMETHASONE SOD PHOSPHATE 4 MG/ML 1 ML VIAL IV ONE; DOCUSATE 100 MG CAP PO PRN; FAMOTIDINE 20 MG/2 ML VIAL IVP PRN; HYDROmorphone 0.5 MG/0.5 ML SYRINGE IVP PRN; KETOROLAC 15 MG/ML 1 ML VIAL IVP PRN; LIDOCAINE 1% (10MG/ML) FOR IV START INTRADERMA PRN; MIDAZOLAM 2 MG/2 ML VIAL IV PRN; ONDANSETRON 4 MG/2 ML VIAL IVP ONE; ONDANSETRON 4 MG/2 ML VIAL IVP PRN; ROPIVACAINE 246.25 MG, EPINEPHrine 0.5 MG, KETOROLAC (30 mg/mL) 30 MG, cloNIDine HCL/PF... MISCELLANE PRN; TRANEXAMIC ACID IN NACL,ISO-OS 1,000 MG in SALINE 1 100ML.BAG IVPB PRN; oxyCODONE ER 10 MG TAB.ER.12H PO PRN
[2021-11-19] MEDS: LACTATED RINGERS 1,000 ML IV SCH ×2 (09:59→16:22)
[2021-11-19] MEDS ORDERED: fentaNYL (PF) 50 MCG/ML 2 ML AMP IVP ONE (10:21)
[2021-11-19] MEDS ORDERED: MIDAZOLAM 2 MG/2 ML VIAL IVP ONE (10:21)
--- NOTE | 2021-11-19 10:27 | P.ANPRN ---
Procedure Note - Anesthesia - Nerve Block Performed Right Erector Spinae Time Out Performed: Yes (:20) Date of Procedure: 11/19/21 Procedure Start Time: Procedure Stop Time: Location of Patient: PreOp Indication: Acute Post-Operative Pain, Requested by Surgeon (Dr Eldridge) Sedation Type: Sedate with meaningful contact maintained Preparation: Sterile Prep Position: Prone Catheter: None Needle Types: Pajunk Needle Gauge: 21 Ultrasound used to visualize needle placement: Yes Ultrasound used to observe medication spread: Yes Injectate: 0.5% Ropivacaine (see comment for volume) (15cc +10 cc PF Normal saline) Blood Aspirated: No Pain Paresthesia on Injection Noted: No Resistance on Injection: Normal Image Stored and Saved: Yes Events: Uneventful and Well Tolerated
[2021-11-19] MEDS ORDERED: TRANEXAMIC ACID IN NACL,ISO-OS 1,000 MG/100 ML BAG ONE (10:40)
[2021-11-19] MEDS ORDERED: NEOSTIGMINE 1 MG/ML 10 ML VIAL ONE (10:40)
[2021-11-19] MEDS ORDERED: SODIUM CHLORIDE 0.9% (PF) 10 ML VIAL ONE (10:40)
[2021-11-19] MEDS ORDERED: GLYCOPYRROLATE 0.2 MG/ML 2 ML VIAL ONE (10:40)
[2021-11-19] MEDS ORDERED: fentaNYL (PF) 50 MCG/ML 2 ML AMP ONE (10:40)
[2021-11-19] MEDS ORDERED: PROPOFOL 10 MG/ML 20 ML VIAL IV ONE (10:40)
[2021-11-19] MEDS ORDERED: ROCURONIUM 10 MG/ML (5 ML VIAL) IV ONE (10:40)
[2021-11-19] MEDS ORDERED: LIDOCAINE 2% INJ 20 MG/ML (2 ML VIAL) ONE (10:40)
[2021-11-19] MEDS ORDERED: ROPIVACAINE 5 MG/ML 30 ML VIAL ONE (10:40)
[2021-11-19] MEDS ORDERED: PHENYLEPHRINE-0.9% NACL SYG 1,000 MCG/10 ML SYRINGE ONE (10:40)
[2021-11-19] MEDS ORDERED: SUCCINYLCHOLINE CHLORIDE 200 MG/10 ML VIAL IV ONE (10:40)
[2021-11-19] MEDS ORDERED: MIDAZOLAM 2 MG/2 ML VIAL ONE (10:40)
[2021-11-19] MEDS ORDERED: LACTATED RINGERS 1,000 ML IV ONE (12:51)
--- NOTE | 2021-11-19 12:57 | XR ---
Fluoroscopy INDICATION: Pain FINDINGS: Fluoroscopy time: 49 seconds. Images obtained: 6. IMPRESSIONS: 1. Documentation of fluoroscopy.
--- NOTE | 2021-11-19 13:09 | P.OP ---
Date of Procedure: 11/19/21 Preoperative Diagnosis: Severe right hip osteoarthritis Postoperative Diagnosis: Same Procedure(s) Performed: Right direct anterior total hip arthroplasty Implants: 1. Hymera Trident II Acetabular Cup, Size #48 2. Alena Insignia Size #4 Femoral Stem, Standard Offset 3. Dual Mobility OD 38 mm, ID 22.2mm, +0 neck Anesthesia: JAYLINA Surgeon: Marcelo Eldridge [place] Measurer #1: Sadaf Yeboah Estimated Blood Loss (ml): 200 IV fluids (ml): 1,200 Pathology: other Condition: stable Disposition: PACU Indications for Procedure: I had a long discussion with the patient in the office on the potential risks and complications of an elective total hip replacement through a direct anterior approach. Risks discussed include, but are certainly not limited to, risks from anesthesia, superficial infection requiring local wound care or antibiotics, deep opal-prosthetic joint infection and the treatment required to eradicate infection, intraoperative fracture, postoperative periprosthetic fracture, damage to local blood vessels or nerves particularly the lateral femoral cutaneous nerve, delayed wound healing requiring local wound care or possibly surgical debridement, hip dislocation, leg length discrepancy, soft tissue irritation around the total hip implant such as iliopsoas tendinitis or trochanteric bursitis, wear and osteolysis from the implants, squeaking or audible noises, groin pain, thigh pain, heterotopic ossification, stiffness, aseptic loosening of the implants, dissatisfaction with surgical outcome, need for revision surgery, DVT, PE, swelling of the operative extremity, acute coron evelyn event, stroke, failure to thrive, and possibly loss of life or limb. The patient understands that while these are the most common complications after an elective hip replacement there are certainly other less common complications possible. They were given ample time to ask questions regarding the potential complications of a hip replacement. Following our discussion the patient provided their verbal and written consent to go forward with an elective total hip replacement. Operative Findings: Severe right hip osteoarthritis with complete cartilage loss on the femoral head and acetabulum. Description of Procedure: The patient was identified in the preoperative holding area and the correct hip was marked with my initials. I reviewed the procedure and consent with the patient. All of their questions were answered. The patient was then brought back into the operating room by anesthesia. While on the [facility] anesthesia was administered by the anesthesia team. Preoperative antibiotics and tranexamic acid were also given. After the patient was under anesthesia I examined their ankles to determine their preoperative leg length discrepancy. The skin over the anterior aspect of the hip was shaved to remove hair over the site of planned incision. Both feet and ankles were padded with webril and boots for the [place] were applied. The patient was then carefully transferred onto the [place] table. A perineal post was immediately placed. The arms were placed on arm holders and were well-padded. Both boots were secured to the spars on the [place] table. The patient was positioned so that the pelvis was centered over the post. Nonsterile drapes were applied. A timeout was performed identifying the correct patient, operative extremity, and procedure. At this point fluoroscopy was brought in to take preoperative images of the pelvis and operative hip. Using the standing AP pelvis from the office as a template, a comparable image was obtained with fluoroscopy. A metallic bar was used to create a bi-ischial line for use as a reference to leg length adjustments during the procedure. Global offset was also measured on both the operative and nonoperative leg. Fluoroscopy was then brought out and a pre-scrub using a chlorhexidine scrub brush was performed. The operative limb was then prepped and draped in the lakhwinder real sterile fashion. An anterior longitudinal incision was made lateral and distal to the ASIS. The skin and subcutaneous tissues were incised sharply. The underlying tensor fascia was identified and incised in its midportion. The fascia was dissected free from the underlying muscle and the muscle belly was retracted. A blunt tipped cobra retractor was placed over the superior neck under the muscle fibers of the gluteus minimus. The deep enveloping fascia of the tensor was incised. The anterior leash of vessels were then identified and cauterized. The fascia between the rectus and the capsule was then incised and the pre-capsular fat was excised. A second Cobra was placed inferior to the neck. The interval between the rectus and iliocapsularis and the hip capsule was developed and a retractor was placed carefully over the anterior rim of the acetabulum. A T-shaped anterior capsulotomy was performed. The superior capsular leaflet was left in place in the inferior capsular flap was excised. The Cobra retractors were placed intracapsularly. We then made a femoral neck osteotomy according to preoperative and intraoperative templating and confirmed the level of the osteot john paul using fluoroscopic imaging. The femoral head was removed, passed off to the back table, and sized. The superior capsular flap was excised. Retractors were placed circumferentially exposing the acetabulum. We then circumferentially debrided the acetabulum free of labrum and osteophytes. The pulvinar was removed to fully visualize the cotyloid fossa. We then sequentially reamed to achieve peripheral fit and excellent bleeding subchondral bone. The socket was thoroughly irrigated. The acetabular component was impacted into the appropriate position using fluoroscopy to guide version, inclination, and depth of insertion taking care to have a comparable image of the AP pelvis to the standing image taken in the office. An excellent press-fit was achieved and final position was confirmed using fluoroscopy. The press fit was augmented with bony cancellus dome screws. The liner was then impacted into the socket. Attention was then turned to the femur. The remnant dorsal lateral capsule was excised. The short external rotators were visible and protected. A bone hook was used to confirm appropriate translation of the trochanter away from the acetabulum. The leg was then extended and adducted and the bone hook was used to elevate the femur for broaching. A box osteotome and blunt tipped canal sound was then utilized to gain access to the femoral canal. We then sequenti ally broached the femur in appropriate anteversion until excellent torsional stability was achieved. The neck cut was brought flush to the trial broach with a calcar planar. A trial neck and head were then placed onto the broach and the hip was atraumatically reduced under direct visualization. External rotation to 90 was performed to assess stability. Fluoroscopy was brought in. An AP and l ateral fluoroscopic image of the proximal femur was obtained to assess position and fill of the trial broach. An AP of the pelvis was then obtained and matched to the preoperative image taken. A bi-ischial bar was then placed and measurements were taken to assess changes in length and offset. The hip was then carefully dislocated, the proximal femur was exposed, and the trial implants were removed. The wound and proximal femur was thoroughly irrigated using sterile saline and pulsatile lavage. The final femoral implant was dispensed and gently tapped into place generating an excellent press-fit. The trunnion was cleansed and the final head was tapped into place to engage the Fletcher taper. The acetabulum was irrigated and visualized to be free of debris. The hip was carefully reduced. Stability was checked clinically with external rotation to 90 and there was no evidence of instability. Final fluoroscopic images were taken. The wound was then thoroughly irrigated and soaked with a dilute Betadine rinse for 3 minutes. 3 L of sterile saline was irrigated through the wound using pulsatile lavage. Local anesthetic cocktail was injected into the soft tissues around the surgical field. The wound was then closed in layers. A sterile dressing was placed over the surgical incision. The drapes were taken down and the patient was carefully transferred off of the [place] table. Following removal of the boots the leg lengths felt acceptable. The patient was then taken to recovery room having tolerated the procedure well. Sadaf Yeboah PA-C was required as a skilled assistant scientist for patient positioning, surgical exposure, retraction, placement of implants, and closure of the surgical wound. PLAN: The patient can weight-bear as tolerated on the operative extremity. 2 d oses of postoperative antibiotics. DVT prophylaxis with aspirin 81 mg twice a day based on preoperative risk stratification. Physical therapy for gait training.
[2021-11-19] MEDS ORDERED: hydrOXYzine pamoate 25 MG CAP PO PRN (13:13)
[2021-11-19] MEDS ORDERED: HYDROmorphone 0.5 MG/0.5 ML SYRINGE IVP PRN ×3 (13:13)
[2021-11-19] MEDS ORDERED: HYDROcodone/APAP 5-325MG 1 EACH TAB PO PRN (13:13)
[2021-11-19] MEDS ORDERED: ONDANSETRON 4 MG/2 ML VIAL IVP PRN (13:13)
[2021-11-19] MEDS ORDERED: NALOXONE 0.4 MG/ML 1 ML VIAL IV PRN (13:13)
--- NOTE | 2021-11-19 14:24 | FL ---
Intraoperative/procedural fluoroscopic services were provided. Total fluoroscopy time is 49 seconds w ith a total of 6 submitted images to PACS. Please see the operative/procedural note for further detai ls.
--- NOTE | 2021-11-19 15:39 | P.CONS ---
History of Present Illness - Reason for Consult Consult date: 11/19/21 Medical management Requesting physician: Marcelo Eldridge - History of Present Illness History of Presenting Illness: Patient is a very pleasant 76-year-old female with a past medical history of hypertension and osteoarthritis. She is currently admitted under orthopedic surgery team status post elective right anterior total hip arthroplasty secondary to severe osteoarthritis. Surgical procedure was performed by Dr. Eldridge. We have been consulted for medical management throughout patient's hospitalization. Patient seen and fully evaluated at bedside. She is gita ating oral intake with a regular diet and denies having any postoperative nausea or vomiting at this time. Patient reports she has been ambulatory to and from restroom with use of walker and nursing assistance with reports of minimal postoperative discomfort. Patient reports at rest postoperative pain is controlled. She denies any history of DVT or PEs And denies having any headache, lightheadedness, dizziness, chest pain, palpitations, shortness of breath, or experiencing any numbness or focal weakness in her extremities. Review of systems: Pertinent positives and negatives as discussed in HPI, a complete review of systems was performed and all other systems are negative. Physical exam: Vital signs reviewed and stable. General: Nontoxic, no distress and appears stated age. Derm: Skin warm and dry, normal coloration for ethnicity. Head: Atraumatic, normocephalic and symmetric. Eyes: EOMs intact, no lid lag, and anicteric sclera Mouth: no lip lesions, mucus membranes moist Cardiovascular: regular rate and rhythm with normal S1S2, no murmur, positive posterior tibial pulses bilaterally, and cap refill < 2 seconds. Lungs: Respirations even, regular, and unlabored on room air. Lungs CTA bilaterally, no rhonchi, no rales, no wheezing, and no accessory muscle usage. Abdominal: soft, nontender to palpation, no guarding, no appreciable organomegaly Ext: ROM intact. No gross muscle atrophy, no edema, no contractures Neuro: Speech clear, face symmetrical and CN II-XII grossly intact with no noted focal neuro deficits Psych: Alert and oriented to person, place, time, and situation. Appropriate and pleasant affect. Assessment and Plan of Care: Status post right total hip arthroplasty Severe osteoarthritis -Management per primary admitting orthopedic surgery team including DVT prophylaxis, postoperative dressing changes/wound care, pain management, weightbearing, and PT/OT. -Patient currently on DVT prophylaxis with aspirin. Hypertension -Monitor vital signs and continue daily medication regimen with losartan. Thank you for allowing us to participate in the care of this pleasant patient. Do not hesitate to contact us with questions. Someone can be reached from the [facility] hospitalist group all hours of the day at [phone] or via [employer]. Past Medical History Past Medical History: Hypertension, Osteoarthritis (OA) History of Any Multi-Drug Resistant Organisms: None Reported Additional Past Surgical History / Comment(s): corneal transplant ana maria eyes, colonoscopy Past Anesthesia/Blood Transfusion Reactions: No Reported Reaction Smoking Status: Never smoker - Past Family History Mother Family Medical History: Coronary Artery Disease (CAD) Medications and Allergies Home Medications Medication Instructions Recorded Confirmed Type Aspirin 81 mg PO DAILY 11/14/21 11/19/21 History Losartan Potassium [Cozaar] 100 mg PO DAILY 11/14/21 11/19/21 History Sertraline [Zoloft] 25 mg PO DAILY 11/14/21 11/19/21 History traMADol HCL 50 mg PO Q6H PRN 11/14/21 11/19/21 History Allergies Allergy/AdvReac Type Severity Reaction Status Date / Time No Known Allergies Allergy Verified 11/19/21 09:30 Physical Exam Vitals: Vital Signs Temp Pulse Pulse Resp BP BP Pulse Ox 11/19/21 14:00 86 16 136/61 93 L 11/19/21 13:45 86 16 121/74 93 L 11/19/21 13:30 90 16 150/63 94 L 11/19/21 13:20 86 16 120/58 98 11/19/21 13:06 97.1 F L 95 20 120/56 98 11/19/21 10:24 78 15 154/65 99 11/19/21 10:18 89 16 162/65 99 11/19/21 09:39 97.0 F L 87 14 173/84 97 Intake and Output 11/19/21 11/19/21 11/19/21 06:59 14:59 22:59 Intake Total 1450 Output Total 300 Balance 1150 Intake: IV 1450 Output: Estimated Blood Loss 300 Other: Weight 90.718 kg
[2021-11-19] MEDS: HYDROcodone/APAP 5-325MG 1 EACH TAB PO PRN (18:10)
[2021-11-19] MEDS: ASPIRIN 81 MG PO SCH (20:24)
[2021-11-19] MEDS ORDERED: SENNOSIDES-DOCUSATE SODIUM 1 EACH TAB PO SCH (21:00)
[2021-11-20 02:01] VITALS: RESP 18
[2021-11-20] MEDS: LACTATED RINGERS 1,000 ML IV SCH ×3 (05:43→08:19)
[2021-11-20 07:37] VITALS: BP 110/68; PULSE 55; TEMP 98.3
--- NOTE | 2021-11-20 08:16 | P.DS ---
Providers Expected date of discharge: 11/20/21 Attending physician: Marcelo Eldridge Consults: 11/19/21 13:13 Consult Physician Routine Consulting Provider: Magali Subramanian Consult Reason/Comments: medical management Do you want consulting provider notified?: Yes Primary care physician: Miguel Simental MD Hospital Course: This is a 76-year-old female with known history of degenerative arthritis of the right hip. The patient presents for evaluation. After discussion and consideration patient elects to proceed with direct anterior right total hip arthroplasty. The patient is seen preoperatively by Dr. Simental and cleared for surgery. Patient is admitted to [facility] on 11/19/21 for direct anterior right total hip arthroplasty. The procedures performed without compl ication or sequelae. The patient is doing well postoperatively. Labs and vital signs are stable on day of discharge. Patient is examined bedside this morning with Dr. Eldridge. She states the pain in her right hip is well-controlled. She is ambulating with a walker with minimal assistance. She overall feels well. On examination, the patient is sitting up in bed in no apparent distress. She is alert and oriented 3. On inspection of her right hip, there is a clean, dry, intact OpSite dressing in place with no bleeding or drainage through the dressing. There is mild swelling of the thigh, the thigh soft and compressible. Motor and sensory function is intact of the right lower extremity. Femoral nerve function intact. Right lower extremity were well perfused. Calf is soft and nontender. Patient is discharged to home with home health services in good condition, pending medical clearance. Please see med rec for accurate list of discharge medications. Patient was instructed to follow-up with Dr. Eldridge in the office in 2 weeks. Plan - Discharge Summary Discharge Rx Participant: No New Discharge Prescriptions: New Aspirin 81 mg PO BID 30 Days #60 tab Docusate [Colace] 100 mg PO BID #60 capsule Diclofenac Sodium [Voltaren] 75 mg PO BID 30 Days #60 tab HYDROcodone/APAP 5-325MG [[place] 5-325] 1 - 2 tab PO Q6HR PRN 7 Days #32 tab PRN Reason: Pain Omeprazole 40 mg PO DAILY 30 Days #30 cap No Action traMADol HCL 50 mg PO Q6H PRN PRN Reason: Pain Aspirin 81 mg PO DAILY Sertraline [Zoloft] 25 mg PO DAILY Losartan Potassium [Cozaar] 100 mg PO DAILY Discharge Medication List Aspirin 81 mg PO DAILY 11/14/21 [History] Losartan Potassium [Cozaar] 100 mg PO DAILY 11/14/21 [History] Sertraline [Zoloft] 25 mg PO DAILY 11/14/21 [History] traMADol HCL 50 mg PO Q6H PRN 11/14/21 [History] Aspirin 81 mg PO BID 30 Days #60 tab 11/20/21 [Rx] Diclofenac Sodium [Voltaren] 75 mg PO BID 30 Days #60 tab 11/20/21 [Rx] Docusate [Colace] 100 mg PO BID #60 capsule 11/20/21 [Rx] HYDROcodone/APAP 5-325MG [[place] 5-325] 1 - 2 tab PO Q6HR PRN 7 Days #32 tab 11/20/21 [Rx] Omeprazole 40 mg PO DAILY 30 Days #30 cap 11/20/21 [Rx] Follow up Appointment(s)/Referral(s): [facility] [NON-STAFF] - 1-2 Days Marcelo Eldridge MD [Medical Doctor] - 2 Weeks Activity/Diet/Wound Care/Special Instructions: Weight bear to tolerance on operative hip with a walker. Keep operative dressing intact until follow-up appointment in the office. Call the office if dressing becomes saturated or falls off. May shower over dressing. Take pain medications as needed. Take aspirin 81mg BID x 4 weeks for blood clot prevention. Follow-up with Dr. Eldridge in the office in two weeks. Call the office with any questions or concerns, Discharge Disposition: HOME WITH HOME HEALTH SERVICES
[2021-11-20] MEDS: ASPIRIN 81 MG PO SCH (08:20)
[2021-11-20] MEDS: HYDROcodone/APAP 5-325MG 1 EACH TAB PO PRN (08:20)
[2021-11-20] MEDS ORDERED: LOSARTAN 50 MG TAB PO SCH (09:00)
[2021-11-20] MEDS ORDERED: SERTRALINE 25 MG TAB PO SCH (09:00)
[2021-11-20 09:01] LABS: Basophils # (A) 0.03 X 10*3/uL (0.00-0.10); Basophils % (A) 0.2 %; Eosinophils # (A) 0 X 10*3/uL (0.04-0.35); Eosinophils % (A) 0 %; HCT 32.8 % (37.2-46.3); HGB 10.7 g/dL (12.0-15.0); Immature Grans, Automated 0.6 %; Lymphocytes # (A) 1.96 X 10*3/uL (0.90-5.00); Lymphocytes % (A) 15.6 %; MCH 29.6 pg (27.0-32.0); MCHC 32.6 g/dL (32.0-37.0); MCV 90.9 fL (80.0-97.0); Mean Platelet Volume 11.4 fL (9.5-12.2); Monocytes # (A) 1.21 X 10*3/uL (0.20-1.00); Monocytes % (A) 9.6 %; NRBC Per 100 WBC 0 /100 WBCS (0.0-0.0); Neutrophils # (A) 9.33 X 10*3/uL (1.80-7.70); Platelet Count 195 X 10*3/uL (140-440); RBC 3.61 X 10*6/uL (4.10-5.20); RDW 14.6 % (11.5-14.5)
[2021-11-20 09:10] LABS: African American GFR (CKD) 84.2 (60.0-200.0); Albumin 3.1 g/dL (3.8-4.9); Albumin/Globulin Ratio 1.11 (1.60-3.17); Anion Gap 9.5 mmol/L (10.00-18.00); BUN/Creat Ratio 18.38 Ratio (12.00-20.00); Blood Urea Nitrogen 14.7 mg/dL (9.0-27.0); Calcium 8.6 mg/dL (8.7-10.3); Carbon Dioxide 23.5 mmol/L (20.0-27.5); Globulin 2.8 g/dL (1.6-3.3); Non-African American GFR(CKD) 72.6 (60.0-200.0); Total Bilirubin 0.3 mg/dL (0.30-1.20); Total Protein 5.9 g/dL (6.2-8.2)
[2021-11-20 09:11] LABS: Magnesium 1.8 mg/dL (1.5-2.4)
--- NOTE | 2021-11-20 09:21 | P.PN ---
Subjective Progress Note Date: 11/20/21 Hospital Course: Patient is a very pleasant 76-year-old female with a past medical history of hypertension and osteoarthritis. She is currently admitted under orthopedic surgery team status post elective right anterior total hip arthroplasty secondary to severe osteoarthritis. Surgical procedure was performed by Dr. Eldridge. We have been consulted for medical management throughout patient's hospitalization. Physical exam: Patient was seen and fully evaluated at bedside this morning. She is postoperative day one and reports feeling great. Patient has been ambulating with walker well and has been working with physical therapy. Patient's son at bedside at this time, orthopedic surgery team plans for discharge today. Medically, patient is doing unremarkable. Morning labs reviewed. Patient has mild leukocytosis at 12.60 and expected postoperative blood loss anemia with hemoglobin of 10.7. Patient medically stable for discharge at this time. Vital signs reviewed and stable. General: Nontoxic, no distress and appears stated age. Derm: Skin warm and dry, normal coloration for ethnicity. Head: Atraumatic, normocephalic and symmetric. Eyes: EOMs intact, no lid lag, and anicteric sclera Mouth: no lip lesions, mucus membranes moist Cardiovascular: regular rate and rhythm with normal S1S2, no murmur, positive posterior tibial pulses bilaterally, and cap refill < 2 seconds. Lungs: Respirations even, regular, and unlabored on room air. Lungs CTA bilate rally, no rhonchi, no rales, no wheezing, and no accessory muscle usage. Abdominal: soft, nontender to palpation, no guarding, no appreciable organomegaly Ext: ROM intact. No gross muscle atrophy, no edema, no contractures Neuro: Speech clear, face symmetrical and CN II-XII grossly intact with no noted focal neuro deficits Psych: Alert and oriented to person, place, time, and situation. Appropriate and pleasant affect. Assessment and Plan of Care: Acute postoperative blood loss anemia -Expected finding. Hemoglobin stable at 10.7. Status post right total hip arthroplasty Severe osteoarthritis -Management per primary admitting orthopedic surgery team including DVT prophylaxis, postoperative dressing changes/wound care, pain management, weightbearing, and PT/OT. -Patient currently on DVT prophylaxis with aspirin. Hypertension -Monitor vital signs and continue daily medication regimen with losartan. Thank you for allowing us to participate in the care of this pleasant patient. Do not hesitate to contact us with questions. Someone can be reached from the [facility] hospitalist group all hours of the day at [phone] or via [employer]. I reviewed the documentation as provided by the PASCUAL above, who is the original author of this note. I agree with the documented assessment and plan, with the following changes: none Objective - Vital Signs Vital signs: Vital Signs Temp 98.3 F 11/20/21 07:37 Pulse 55 L 11/20/21 07:37 Resp 18 11/20/21 07:37 BP 110/68 11/20/21 07:37 Pulse Ox 92 L 11/20/21 07:37 FiO2 Intake & Output 11/19/21 11/20/21 11/20/21 18:59 06:59 18:59 Intake Total 1450 Output Total 300 Balance 1150 Weight 90.718 kg Intake: IV 1450 Output: Estimated Blood Loss 300 Other: Voiding Method Toilet Toilet # Voids 0 1 - Labs CBC & Chem 7: 11/20/21 06:56 11/20/21 06:56 Labs: Abnormal Lab Results - Last 24 Hours (Table) 11/20/21 11/20/21 Range/Units 06:56 06:56 WBC 12.60 H (4.50-10.00) X 10*3/uL RBC 3.61 L (4.10-5.20) X 10*6/uL Hgb 10.7 L (12.0-15.0) g/dL Hct 32.8 L (37.2-46.3) % RDW 14.6 H (11.5-14.5) % Immature Gran # 0.07 H (0.00-0.04) X 10*3/uL Neutrophils # 9.33 H (1.80-7.70) X 10*3/uL Monocytes # 1.21 H (0.20-1.00) X 10*3/uL Eosinophils # 0 L (0.04-0.35) X 10*3/uL Anion Gap 9.50 L (10.00-18.00) mmol/L Glucose 144 H (70-110) mg/dL Calcium 8.6 L (8.7-10.3) mg/dL Total Protein 5.9 L (6.2-8.2) g/dL Albumin 3.1 L (3.8-4.9) g/dL Albumin/Globulin Ratio 1.11 L (1.60-3.17) g/dL
== END 2021-11-20 10:51 | disposition home health service (06) ==
LOC: OR 09:05 → 4SSUR 13:06 → OR 11-20 10:51
PROVIDERS: ATTEND Orthopaedic Surgery
DX: M16.11 Unilateral primary osteoarthritis, right hip (principal); G89.18 Other acute postprocedural pain; I10 Essential (primary) hypertension; F32.A Depression, unspecified; Z82.49 Family history of ischemic heart disease and other diseases of the circulatory system
CPT/HCPCS: 97161; 97166; 64999; 80053; 83735; 85025; 88300; 73501; 27130; C1776; J2250; J0171; J1100; J0690 ×2; J2405; J3010; J1885 ×2; J2795; J0735; 86850; 86900; 86901

== ENCOUNTER → 2022-07-07 | Outpatient (CLI) | payer BC ==
[2022-07-07 10:57] LABS: Basophils # (A) 0.05 X 10*3/uL (0.00-0.10); Basophils % (A) 0.6 %; Eosinophils # (A) 0.22 X 10*3/uL (0.04-0.35); Eosinophils % (A) 2.6 %; HCT 38.5 % (37.2-46.3); HGB 12.3 g/dL (12.0-15.0); Immature Grans, Automated 0.2 %; Lymphocytes # (A) 2.99 X 10*3/uL (0.90-5.00); Lymphocytes % (A) 35.9 %; MCH 28.9 pg (27.0-32.0); MCHC 31.9 g/dL (32.0-37.0); MCV 90.6 fL (80.0-97.0); Mean Platelet Volume 11.1 fL (9.5-12.2); Monocytes # (A) 0.73 X 10*3/uL (0.20-1.00); Monocytes % (A) 8.8 %; NRBC Per 100 WBC 0 /100 WBCS (0.0-0.0); Neutrophils # (A) 4.32 X 10*3/uL (1.80-7.70); Neutrophils % (A) 51.9 %; Platelet Count 216 X 10*3/uL (140-440); RBC 4.25 X 10*6/uL (4.10-5.20); RDW 14.9 % (11.5-14.5); WBC 8.33 X 10*3/uL (4.50-10.00)
[2022-07-07 11:13] LABS: ALT 27 U/L (8-44); AST 17 U/L (13-35); African American GFR (CKD) 84.2 (60.0-200.0); Albumin 3.9 g/dL (3.8-4.9); Alkaline Phosphatase 43 U/L (41-126); Blood Urea Nitrogen 18.4 mg/dL (9.0-27.0); Calcium 9.5 mg/dL (8.7-10.3); Carbon Dioxide 27.6 mmol/L (20.0-27.5); Chloride 102 mmol/L (96-109); Chol/HDL Ratio 4.18 Ratio; Glucose 119 mg/dL (70-110); LDL Cholesterol,Calculated 94.4 mg/dL (0.0-131.0); Magnesium 1.8 mg/dL (1.5-2.4); Non-African American GFR(CKD) 72.6 (60.0-200.0); Potassium 3.7 mmol/L (3.5-5.5); Sodium 141 mmol/L (135-145); Total Protein 6.9 g/dL (6.2-8.2)
== END | disposition home or self-care (01) ==
LOC: LABWHC1 07:05
PROVIDERS: ATTEND Internal Medicine
DX: Z11.59 Encounter for screening for other viral diseases (principal); E11.9 Type 2 diabetes mellitus without complications; E78.1 Pure hyperglyceridemia
CPT/HCPCS: 36415; 80053; 80061; 83036; 83735; 84443; 85025; 86803

== ENCOUNTER 2022-09-16 07:23 | Emergency (ER) | payer MEDICARE ==
[2022-09-16 07:32] VITALS: BP 135/82; PULSE 106; RESP 18; TEMP 99.8
[2022-09-16] MEDS ORDERED: SODIUM CHLORIDE 0.9% 1,000 ML IV STA (08:04)
[2022-09-16] MEDS ORDERED: MORPHINE SULFATE 4 MG/ML SYRINGE IVP STA (08:07)
[2022-09-16 08:23] LABS: Basophils % (A) 0 %; Eosinophils # (A) 0.1 k/uL (0-0.7); Eosinophils % (A) 0 %; HCT 37.4 % (34.0-46.0); HGB 12.9 gm/dL (11.4-16.0); Lymphocytes # (A) 1.3 k/uL (1.0-4.8); Lymphocytes % (A) 8 %; MCHC 34.4 g/dL (31.0-37.0); MCV 90.2 fL (80.0-100.0); Mean Platelet Volume 8.1; Monocytes # (A) 0.6 k/uL (0-1.0); Monocytes % (A) 4 %; Neutrophils # (A) 13.9 k/uL (1.3-7.7); Neutrophils % (A) 87 %; Platelet Count 194 k/uL (150-450); RBC 4.15 m/uL (3.80-5.40); RDW 14.2 % (11.5-15.5); WBC 15.9 k/uL (3.8-10.6)
[2022-09-16 08:30] LABS: Appearance,Urine Cloudy (Clear); Bilirubin,Urine Negative (Negative); Blood,Urine Moderate (Negative); Color,Urine Light Yellow; Glucose,Urine (UA) Negative (Negative); Ketones,Urine Negative (Negative); Leukocyte Esterase,Urine Large (Negative); Nitrite,Urine Positive (Negative); PH, Urine 5.5 (5.0-8.0); Protein,Urine Negative (Negative); Specific Gravity,Urine 1.014 (1.001-1.035); Urobilinogen,Urine <2.0 mg/dL (<2.0)
[2022-09-16 08:34] LABS: ALT 27 U/L (4-34); AST 22 U/L (14-36); African American GFR (CKD) >90 (>60 ml/min/1.73 sqM); Albumin 3.9 g/dL (3.5-5.0); Alkaline Phosphatase 56 U/L (38-126); Amylase 35 U/L (30-110); Anion Gap 10 mmol/L; Blood Urea Nitrogen 15 mg/dL (7-17); Calcium 8.7 mg/dL (8.4-10.2); Carbon Dioxide 26 mmol/L (22-30); Chloride 99 mmol/L (98-107); Glucose 153 mg/dL (74-99); Lipase 31 U/L (23-300); Non-African American GFR(CKD) 86 (>60 ml/min/1.73 sqM); Potassium 3.3 mmol/L (3.5-5.1); Sodium 135 mmol/L (137-145); Total Bilirubin 0.9 mg/dL (0.2-1.3); Total Protein 7.6 g/dL (6.3-8.2)
[2022-09-16 08:37] LABS: Prothrombin Time 10.6 sec (9.0-12.0)
[2022-09-16 09:16] LABS: Bacteria,Urine Many /hpf
[2022-09-16 09:17] LABS: RBC,Urine 3 /hpf (0-5); WBC,Urine 15 /hpf (0-5)
[2022-09-16 09:18] LABS: Squamous Epithelial Cell,Urine 2 /hpf (0-4)
--- NOTE | 2022-09-16 09:45 | CT ---
EXAMINATION TYPE: CT abdomen pelvis w con DATE OF EXAM: 09/16/2022 COMPARISON: 05/08/2021 INDICATION: Pelvic pain, back pain DLP: 1340.3 mGycm, Automated exposure control for dose reduction was used. CONTRAST: 100 mL of Isovue 300. Study performed without Oral Contrast TECHNIQUE: Axial images were obtained from above the diaphragm to the pubic rami in the axial plane a t 5 mm thick sections. Reconstructed images are reviewed on the computer in the coronal plane. FINDINGS: Limited CT sections are obtained the lung bases. The lung bases are clear. CT ABDOMEN: Liver: Mild fatty infiltration as through the liver. Spleen: Normal Pancreas: Normal Adrenal glands: The adrenal glands are normal. Gallbladder: Unremarkable Kidneys: No masses are evident. No hydronephrosis is present. No cysts are present. Delayed images were obtained through the kidneys, which remain unremarkable. Aorta: Vascular calcification is within the aorta. Inferior vena cava: Normal. CT PELVIS: Right hip prosthesis is present causing beam hardening artifact in some limitation of the lower pelvis evaluation. Multiple diverticuli within the sigmoid colon. Study is without neural contrast limiting bowel evalua tion. However, wall thickening within the distal sigmoid colon cannot be excluded on the basis of thi s examination. Consider follow-up. Mild diverticulitis or colitis could be considered. Study is witho ut oral contrast limiting bowel evaluation. No dilated loops of bowel are evident. Diverticular vasquez es are within the sigmoid colon. No adjacent inflammatory changes are evident. Appendix: Normal as visualized. Urinary bladder: Normal. Genitourinary structures: Uterus is normal. Adnexa are normal. Osseous structures: No suspicious lytic or sclerotic lesions. Facet degenerative changes lower lumbar spine. IMPRESSIONS: 1. Diverticulosis without definitive acute diverticulitis. Sigmoid colon is nondistended and minimal wall thickening cannot be excluded. Early mild diverticulitis or colitis is not entirely excluded, f ollow-up may be warranted.
[2022-09-16] MEDS ORDERED: cefTRIAXone IN SWFI 1,000 MG/10 ML SYRINGE IVP STA (10:17)
--- NOTE | 2022-09-16 10:38 | ED ---
Abdominal Pain HPI - General Chief Complaint: Abdominal Pain Stated Complaint: Abd Pain Time Seen by Provider: 09/16/22 07:55 Source: patient Mode of arrival: ambulatory Limitations: no limitations - History of Present Illness Initial Comments: Patient is a 76-year-old female presenting to the emergency room with complaints of abdominal pain and lower back pain ongoing since this morning without any other associated symptoms including any nausea, vomiting, diarrhea, constipation, fever, chills, dysuria, hematuria, altered mental status, chest pain or shortness of breath. She reports that she has a known patient or in the L4-L5 region however states that this pain is not similar to the pain that she has been experiencing and she is currently following with Drs. Esparza for nerve blocks. She has known sciatica without any changes in her sciatica, focal weakness, saddle P seizure, bowel or bladder incontinence or other retroflex s ymptoms cauda equina. She is a past medical history significant for hypertension, pre-diabetes but on metformin along with osteoarthritis. - Related Data Home Medications Medication Instructions Recorded Confirmed Aspirin 81 mg PO DAILY 11/14/21 11/19/21 Losartan Potassium [Cozaar] 100 mg PO DAILY 11/14/21 11/19/21 Sertraline [Zoloft] 25 mg PO DAILY 11/14/21 11/19/21 traMADol HCL 50 mg PO Q6H PRN 11/14/21 11/19/21 Previous Rx's Medication Instructions Recorded Aspirin 81 mg PO BID 30 Days #60 tab 11/20/21 Diclofenac Sodium [Voltaren] 75 mg PO BID 30 Days #60 tab 11/20/21 Docusate [Colace] 100 mg PO BID #60 capsule 11/20/21 HYDROcodone/APAP 5-325MG [[place] 1 - 2 tab PO Q6HR PRN 7 Days #32 11/20/21 5-325] tab Omeprazole 40 mg PO DAILY 30 Days #30 cap 11/20/21 Ciprofloxacin HCl [Cipro] 500 mg PO Q12HR 5 Days #10 tab 09/16/22 Allergies Allergy/AdvReac Type Severity Reaction Status Date / Time No Known Allergies Allergy Verified 09/18/22 18:34 Review of Systems ROS Statement: Those systems with pertinent positive or pertinent negative responses have been documented in the HPI. ROS Other: All systems not noted in ROS Statement are negative. Past Medical History Past Medical History: Hypertension, Osteoarthritis (OA) History of Any Multi-Drug Resistant Organisms: None Reported Additional Past Surgical History / Comment(s): corneal transplant ana maria eyes, colonoscopy Past Anesthesia/Blood Transfusion Reactions: No Reported Reaction Past Psychological History: Depression Smoking Status: Never smoker Past Alcohol Use History: None Reported Past Drug Use History: None Reported - Past Family History Mother Family Medical History: Coronary Artery Disease (CAD) General Exam - General Exam Comments Initial Comments: GENERAL: No acute distress, well developed, well nourished. HEENT: Normocephalic, atraumatic. Pupils equal, round, reactive to light. Moist mucous membranes. LUNGS: No respiratory distress. Clear to auscultation, no adventitious sounds, no use of accessory muscles. HEART: Regular rate and rhythm without murmur, rub, or gallop. ABDOMEN: Normal bowel sounds. Soft, non-tender, non-distended. BACK: Normal inspection. No CVA tenderness. EXTREMITIES: No edema. No tenderness. Moves all extremities. NEUROLOGIC: Alert & oriented x 3. CN II-XII grossly intact. PSYCHIATRIC: Normal affect and behavior. DERMATOLOGIC: Skin intact, without rashes or lesions noted. Limitations: no limitations Course Vital Signs 09/16/22 07:29 Temperature 99.8 F H Pulse Rate 106 H Respiratory 18 Rate Blood Pressure 135/82 O2 Sat by Pulse 94 L Oximetry Medical Decision Making - Medical Decision Making Was pt. sent in by a medical professional or institution (, PA, AIRPLANE [employer]ER, urgent care, hospital, or residential...) When possible be specific @ -No Did you speak to anyone other than the patient for history (EMS, parent, family, police, friend...)? What history was obtained from this source @ -No Did you review nursing and triage notes (agree or disagree)? Why? @ -I reviewed and agree with nursing and triage notes Were old charts reviewed (outside hosp., previous admission, EMS record, old EKG, old radiological studies, urgent care reports/EKG's, residential records)? Report findings @ -No old charts were reviewed Differential Diagnosis (chest pain, altered mental status, abdominal pain women, abdominal pain men, vaginal bleeding, weakness, fever, dyspnea, syncope, headache, dizziness, GI bleed, back pain, seizure, CVA, palpatations, mental health, musculoskeletal)? @ -Differential Abdominal Pain Women: Appendicitis, Cholecystitis, diverticulosis, ischemic bowel, pancreatitis, hepatitis, UTI, gastroenteritis, AAA, incarcerated hernia, bowel obstruction, constipation, inflammatory bowel, hepatitis, peptic ulcer disease, splenic infarction, perforated viscus, vulvitis, ovarian torsion, PID, kidney stone, placenta abruption, this is not meant to be an all-inclusive list Differential Back Pain: Strain, zoster, cauda equina syndrome, epidural abscess, vertebral osteomyelitis, discitis, fracture, subluxation, disc herniation, DJD, spinal stenosis, dissection, AAA, pancreatitis, peptic ulcer disease, pyelonephritis, kidney stone, this is not meant to be an all-inclusive list. EKG interpreted by me (3pts min.). @ -EKG shows sinus rhythm, ventricular rate 95 beats parent, SD interval 149 ms, QRS duration 89 ms, QT/QTC 350/403 ms, PRT axes 20, -3,-9 X-rays interpreted by me (1pt min.). @ -None done CT interpreted by me (1pt min.). @ -CT of the abdomen and pelvis: Diverticulosis without any evidence of diverticulitis. Per radiologist sigmoid colon is nondistended and minimal wall thickening cannot be excluded. Early mid diverticulitis or colitis is not entirely excluded follow-up may be warranted. U/S interpreted by me (1pt. min.). @ -None done What testing was considered but not performed or refused? (CT, X-rays, U/S, labs)? Why? @ -None What meds were considered but not given or refused? Why? @ -Analgesics offered and declined initially and then accepted Toradol for low back pain. Did you discuss the management of the patient with other professionals (professionals i.e. , PA, AIRPLANE [employer]ER, lab, RT, psych nurse, social psychologist, welfare worker, t eacher, commanding officer homicide squad, case mgr)? Give summary @ -No Was smoking cessation discussed for >3mins.? @ -No Was critical care preformed (if so, how long)? @ -No Were there social determinants of health that impacted care today? How? (Homelessness, low income, unemployed, alcoholism, drug addiction, transportation, low edu. Level, literacy, decrease access to med. care, [facility], rehab)? @ -No Was there de-escalation of care discussed even if they declined (Discuss DNR or withdrawal of care, Hospice)? DNR status @ -No What co-morbidities impacted this encounter? (DM, HTN, Smoking, COPD, CAD, Cancer, CVA, ARF, Chemo, Hep., AIDS, mental health diagnosis, sleep apnea, morbid obesity)? @ -No Was patient admitted / discharged? Hospital course, mention meds given and rout e, prescriptions, significant lab abnormalities, going to OR and other pertinent info. @ --76-year-old female presenting to the emergency room with complaints of back and lower abdominal pain with onset earlier today without any other associated symptoms. Will start workup for back and abdominal pain women with EKG, CBC, CMP, lactic acid, amylase, lipase, troponin, coags, urinalysis with reflex to culture, blood cultures. Will and will give 1 L of IV fluids. Analgesics and antiemetics offered and declined. Computed tomography scan demonstrates diverticulosis without any significant evidence of diverticulitis however mild early sigmoid colon inflammation cannot be excluded radiologist recommends follow-up. Urinalysis with moderate blood positive nitrates large leukocyte Estrace a few WBC clumps 15 WBCs and many bacteria. Serum labs with WBCs elevated at 15.9 with neutrophils 13.9 and a normal lactic acid of 1.8. CMP shows sodium low at 135 potassium low at 3.3 normal renal function glucose elevated at 153 liver enzymes, alkaline phosphate, amylase, and lipase all normal. Troponin negative. EKG shows sinus rhythm. Results reviewed with patient and spouse at bedside. Advise workup consistent with severe urinary tract infection however follow-up PET scan is recommended along with follow-up with primary care provider will give a dose of Toradol for low back pain and IM Rocephin starting patient on Cipro for urinary tract infection. Questions and concerns answered. Return parameters to the emergency room discussed. Will discharge home in stable condition on oral antibiotics for urinary tract infection advising follow-up with primary care provider. Undiagnosed new problem with uncertain prognosis? @ -No Drug Therapy requiring intensive monitoring for toxicity (Heparin, Nitro, Insulin, Cardizem)? @ -No Were any procedures done? @ -No Diagnosis/symptom? @ -UTI Acute, or Chronic, or Acute on Chronic? @ -Acute Uncomplicated (without systemic symptoms) or Complicated (systemic symptoms)? @ -Uncomplicated Side effects of treatment? @ -No Exacerbation, Progression, or Severe Exacerbation? @ -No Poses a threat to life or bodily function? How? (Chest pain, [place], [place], pneumonia, PE, COPD, DKA, ARF, appy, cholecystitis, CVA, Diverticulitis, Homicidal, Suicidal, threat to staff... and all critical care pts) @ -No Case discussed with Dr. Casas. - Lab Data Result diagrams: 09/18/22 14:30 09/18/22 14:30 Lab Results 09/16/22 09/16/22 09/16/22 Range/Units 08:08 08:08 08:08 WBC 15.9 H (3.8-10.6) k/uL RBC 4.15 (3.80-5.40) m/uL Hgb 12.9 (11.4-16.0) gm/dL Hct 37.4 (34.0-46.0) % MCV 90.2 (80.0-100.0) fL MCH 31.0 (25.0-35.0) pg MCHC 34.4 (31.0-37.0) g/dL RDW 14.2 (11.5-15.5) % Plt Count 194 (150-450) k/uL MPV 8.1 Neutrophils % 87 % Lymphocytes % 8 % Monocytes % 4 % Eosinophils % 0 % Basophils % 0 % Neutrophils # 13.9 H (1.3-7.7) k/uL Lymphocytes # 1.3 (1.0-4.8) k/uL Monocytes # 0.6 (0-1.0) k/uL Eosinophils # 0.1 (0-0.7) k/uL Basophils # 0.0 (0-0.2) k/uL PT 10.6 (9.0-12.0) sec INR 1.0 (<1.2) Sodium 135 L (137-145) mmol/L Potassium 3.3 L (3.5-5.1) mmol/L Chloride 99 (98-107) mmol/L Carbon Dioxide 26 (22-30) mmol/L Anion Gap 10 mmol/L BUN 15 (7-17) mg/dL Creatinine 0.69 (0.52-1.04) mg/dL Est GFR (CKD-EPI)AfAm >90 (>60 ml/min/1.73 sqM) Est GFR (CKD-EPI)NonAf 86 (>60 ml/min/1.73 sqM) Glucose 153 H (74-99) mg/dL Plasma Lactic Acid Chip (0.7-2.0) mmol/L Calcium 8.7 (8.4-10.2) mg/dL Magnesium (1.6-2.3) mg/dL Total Bilirubin 0.9 (0.2-1.3) mg/dL AST 22 (14-36) U/L ALT 27 (4-34) U/L Alkaline Phosphatase 56 (38-126) U/L Troponin I (0.000-0.034) ng/mL Total Protein 7.6 (6.3-8.2) g/dL Albumin 3.9 (3.5-5.0) g/dL Amylase 35 (30-110) U/L Lipase 31 (23-300) U/L Urine Color Urine Appearance (Clear) Urine pH (5.0-8.0) Ur Specific [place] (1.001-1.035) Urine Protein (Negative) Urine Glucose (UA) (Negative) Urine Ketones (Negative) Urine Blood (Negative) Urine Nitrite (Negative) Urine Bilirubin (Negative) Urine Urobilinogen (<2.0) mg/dL Ur Leukocyte Esterase (Negative) Urine RBC (0-5) /hpf Urine WBC (0-5) /hpf Urine WBC Clumps (None) /hpf Ur Squamous Epith Cells (0-4) /hpf Urine Bacteria (None) /hpf 09/16/22 09/16/22 09/16/22 Range/Units 08:08 08:08 08:08 WBC (3.8-10.6) k/uL RBC (3.80-5.40) m/uL Hgb (11.4-16.0) gm/dL Hct (34.0-46.0) % MCV (80.0-100.0) fL MCH (25.0-35.0) pg MCHC (31.0-37.0) g/dL RDW (11.5-15.5) % Plt Count (150-450) k/uL MPV Neutrophils % % Lymphocytes % % Monocytes % % Eosinophils % % Basophils % % Neutrophils # (1.3-7.7) k/uL Lymphocytes # (1.0-4.8) k/uL Monocytes # (0-1.0) k/uL Eosinophils # (0-0.7) k/uL Basophils # (0-0.2) k/uL PT (9.0-12.0) sec INR (<1.2) Sodium (137-145) mmol/L Potassium (3.5-5.1) mmol/L Chloride (98-107) mmol/L Carbon Dioxide (22-30) mmol/L Anion Gap mmol/L BUN (7-17) mg/dL Creatinine (0.52-1.04) mg/dL Est GFR (CKD-EPI)AfAm (>60 ml/min/1.73 sqM) Est GFR (CKD-EPI)NonAf (>60 ml/min/1.73 sqM) Glucose (74-99) mg/dL Plasma Lactic Acid Chip 1.8 (0.7-2.0) mmol/L Calcium (8.4-10.2) mg/dL Magnesium (1.6-2.3) mg/dL Total Bilirubin (0.2-1.3) mg/dL AST (14-36) U/L ALT (4-34) U/L Alkaline Phosphatase (38-126) U/L Troponin I <0.012 (0.000-0.034) ng/mL Total Protein (6.3-8.2) g/dL Albumin (3.5-5.0) g/dL Amylase (30-110) U/L Lipase (23-300) U/L Urine Color Light Yellow Urine Appearance Cloudy H (Clear) Urine pH 5.5 (5.0-8.0) Ur Specific [place] 1.014 (1.001-1.035) Urine Protein Negative (Negative) Urine Glucose (UA) Negative (Negative) Urine Ketones Negative (Negative) Urine Blood Moderate H (Negative) Urine Nitrite Positive H (Negative) Urine Bilirubin Negative (Negative) Urine Urobilinogen <2.0 (<2.0) mg/dL Ur Leukocyte Esterase Large H (Negative) Urine RBC 3 (0-5) /hpf Urine WBC 15 H (0-5) /hpf Urine WBC Clumps Few H (None) /hpf Ur Squamous Epith Cells 2 (0-4) /hpf Urine Bacteria Many H (None) /hpf 09/18/22 09/18/22 Range/Units 14:30 14:30 WBC 15.4 H (3.8-10.6) k/uL RBC 4.21 (3.80-5.40) m/uL Hgb 12.9 (11.4-16.0) gm/dL Hct 38.1 (34.0-46.0) % MCV 90.5 (80.0-100.0) fL MCH 30.6 (25.0-35.0) pg MCHC 33.8 (31.0-37.0) g/dL RDW 14.3 (11.5-15.5) % Plt Count 210 (150-450) k/uL MPV 8.6 Neutrophils % 84 % Lymphocytes % 11 % Monocytes % 4 % Eosinophils % 0 % Basophils % 0 % Neutrophils # 13.0 H (1.3-7.7) k/uL Lymphocytes # 1.7 (1.0-4.8) k/uL Monocytes # 0.5 (0-1.0) k/uL Eosinophils # 0.1 (0-0.7) k/uL Basophils # 0.0 (0-0.2) k/uL PT (9.0-12.0) sec INR (<1.2) Sodium 133 L (137-145) mmol/L Potassium 3.5 (3.5-5.1) mmol/L Chloride 97 L (98-107) mmol/L Carbon Dioxide 24 (22-30) mmol/L Anion Gap 12 mmol/L BUN 18 H (7-17) mg/dL Creatinine 0.71 (0.52-1.04) mg/dL Est GFR (CKD-EPI)AfAm >90 (>60 ml/min/1.73 sqM) Est GFR (CKD-EPI)NonAf 85 (>60 ml/min/1.73 sqM) Glucose 173 H (74-99) mg/dL Plasma Lactic Acid Chip (0.7-2.0) mmol/L Calcium 8.7 (8.4-10.2) mg/dL Magnesium 1.9 (1.6-2.3) mg/dL Total Bilirubin 0.8 (0.2-1.3) mg/dL AST 36 (14-36) U/L ALT 34 (4-34) U/L Alkaline Phosphatase 67 (38-126) U/L Troponin I (0.000-0.034) ng/mL Total Protein 7.6 (6.3-8.2) g/dL Albumin 3.7 (3.5-5.0) g/dL Amylase (30-110) U/L Lipase (23-300) U/L Urine Color Urine Appearance (Clear) Urine pH (5.0-8.0) Ur Specific [place] (1.001-1.035) Urine Protein (Negative) Urine Glucose (UA) (Negative) Urine Ketones (Negative) Urine Blood (Negative) Urine Nitrite (Negative) Urine Bilirubin (Negative) Urine Urobilinogen (<2.0) mg/dL Ur Leukocyte Esterase (Negative) Urine RBC (0-5) /hpf Urine WBC (0-5) /hpf Urine WBC Clumps (None) /hpf Ur Squamous Epith Cells (0-4) /hpf Urine Bacteria (None) /hpf - Radiology Data Radiology results: report reviewed, image reviewed Disposition Clinical Impression: UTI (urinary tract infection) Disposition: HOME SELF-CARE Condition: Stable Instructions (If sedation given, give patient instructions): Urinary Tract Infection in Women (ED) Additional Instructions: Complete course of antibiotic as prescribed. Continue your tramadol as previously prescribed for pain as needed. Stay well hydrated. Please follow-up with her primary care provider. Please return to the Emergency Department if symptoms worsen or any other concerns. Prescriptions: Ciprofloxacin HCl [Cipro] 500 mg PO Q12HR 5 Days #10 tab Is patient prescribed a controlled substance at d/c from ED?: No Referrals: Miguel Simental MD [Primary Care Provider] - 1-2 days Time of Disposition: 10:45
--- NOTE | 2022-09-16 11:03 | ED ---
Abdominal Pain HPI - General Chief Complaint: Abdominal Pain Stated Complaint: Abd Pain Time Seen by Provider: 09/16/22 07:55 Source: patient Mode of arrival: ambulatory Limitations: no limitations - History of Present Illness Initial Comments: duplicate chart - Related Data Home Medications Medication Instructions Recorded Confirmed Aspirin 81 mg PO DAILY 11/14/21 11/19/21 Losartan Potassium [Cozaar] 100 mg PO DAILY 11/14/21 11/19/21 Sertraline [Zoloft] 25 mg PO DAILY 11/14/21 11/19/21 traMADol HCL 50 mg PO Q6H PRN 11/14/21 11/19/21 Previous Rx's Medication Instructions Recorded Aspirin 81 mg PO BID 30 Days #60 tab 11/20/21 Diclofenac Sodium [Voltaren] 75 mg PO BID 30 Days #60 tab 11/20/21 Docusate [Colace] 100 mg PO BID #60 capsule 11/20/21 HYDROcodone/APAP 5-325MG [[place] 1 - 2 tab PO Q6HR PRN 7 Days #32 11/20/21 5-325] tab Omeprazole 40 mg PO DAILY 30 Days #30 cap 11/20/21 Ciprofloxacin HCl [Cipro] 500 mg PO Q12HR 5 Days #10 tab 09/16/22 Allergies Allergy/AdvReac Type Severity Reaction Status Date / Time No Known Allergies Allergy Verified 09/16/22 07:32 Review of Systems ROS Statement: Those systems with pertinent positive or pertinent negative responses have been documented in the HPI. ROS Other: All systems not noted in ROS Statement are negative. Past Medical History Past Medical History: Hypertension, Osteoarthritis (OA) History of Any Multi-Drug Resistant Organisms: None Reported Additional Past Surgical History / Comment(s): corneal transplant ana maria eyes, colonoscopy Past Anesthesia/Blood Transfusion Reactions: No Reported Reaction Past Psychological History: Depression Smoking Status: Never smoker Past Alcohol Use History: None Reported Past Drug Use History: None Reported - Past Family History Mother Family Medical History: Coronary Artery Disease (CAD) General Exam Limitations: no limitations Course Vital Signs 09/16/22 07:29 Temperature 99.8 F H Pulse Rate 106 H Respiratory 18 Rate Blood Pressure 135/82 O2 Sat by Pulse 94 L Oximetry Medical Decision Making - Lab Data Result diagrams: 09/16/22 08:08 09/16/22 08:08 Lab Results 09/16/22 09/16/22 09/16/22 Range/Units 08:08 08:08 08:08 WBC 15.9 H (3.8-10.6) k/uL RBC 4.15 (3.80-5.40) m/uL Hgb 12.9 (11.4-16.0) gm/dL Hct 37.4 (34.0-46.0) % MCV 90.2 (80.0-100.0) fL MCH 31.0 (25.0-35.0) pg MCHC 34.4 (31.0-37.0) g/dL RDW 14.2 (11.5-15.5) % Plt Count 194 (150-450) k/uL MPV 8.1 Neutrophils % 87 % Lymphocytes % 8 % Monocytes % 4 % Eosinophils % 0 % Basophils % 0 % Neutrophils # 13.9 H (1.3-7.7) k/uL Lymphocytes # 1.3 (1.0-4.8) k/uL Monocytes # 0.6 (0-1.0) k/uL Eosinophils # 0.1 (0-0.7) k/uL Basophils # 0.0 (0-0.2) k/uL PT 10.6 (9.0-12.0) sec INR 1.0 (<1.2) Sodium 135 L (137-145) mmol/L Potassium 3.3 L (3.5-5.1) mmol/L Chloride 99 (98-107) mmol/L Carbon Dioxide 26 (22-30) mmol/L Anion Gap 10 mmol/L BUN 15 (7-17) mg/dL Creatinine 0.69 (0.52-1.04) mg/dL Est GFR (CKD-EPI)AfAm >90 (>60 ml/min/1.73 sqM) Est GFR (CKD-EPI)NonAf 86 (>60 ml/min/1.73 sqM) Glucose 153 H (74-99) mg/dL Plasma Lactic Acid Chip (0.7-2.0) mmol/L Calcium 8.7 (8.4-10.2) mg/dL Total Bilirubin 0.9 (0.2-1.3) mg/dL AST 22 (14-36) U/L ALT 27 (4-34) U/L Alkaline Phosphatase 56 (38-126) U/L Troponin I (0.000-0.034) ng/mL Total Protein 7.6 (6.3-8.2) g/dL Albumin 3.9 (3.5-5.0) g/dL Amylase 35 (30-110) U/L Lipase 31 (23-300) U/L Urine Color Urine Appearance (Clear) Urine pH (5.0-8.0) Ur Specific [place] (1.001-1.035) Urine Protein (Negative) Urine Glucose (UA) (Negative) Urine Ketones (Negative) Urine Blood (Negative) Urine Nitrite (Negative) Urine Bilirubin (Negative) Urine Urobilinogen (<2.0) mg/dL Ur Leukocyte Esterase (Negative) Urine RBC (0-5) /hpf Urine WBC (0-5) /hpf Urine WBC Clumps (None) /hpf Ur Squamous Epith Cells (0-4) /hpf Urine Bacteria (None) /hpf 09/16/22 09/16/22 09/16/22 Range/Units 08:08 08:08 08:08 WBC (3.8-10.6) k/uL RBC (3.80-5.40) m/uL Hgb (11.4-16.0) gm/dL Hct (34.0-46.0) % MCV (80.0-100.0) fL MCH (25.0-35.0) pg MCHC (31.0-37.0) g/dL RDW (11.5-15.5) % Plt Count (150-450) k/uL MPV Neutrophils % % Lymphocytes % % Monocytes % % Eosinophils % % Basophils % % Neutrophils # (1.3-7.7) k/uL Lymphocytes # (1.0-4.8) k/uL Monocytes # (0-1.0) k/uL Eosinophils # (0-0.7) k/uL Basophils # (0-0.2) k/uL PT (9.0-12.0) sec INR (<1.2) Sodium (137-145) mmol/L Potassium (3.5-5.1) mmol/L Chloride (98-107) mmol/L Carbon Dioxide (22-30) mmol/L Anion Gap mmol/L BUN (7-17) mg/dL Creatinine (0.52-1.04) mg/dL Est GFR (CKD-EPI)AfAm (>60 ml/min/1.73 sqM) Est GFR (CKD-EPI)NonAf (>60 ml/min/1.73 sqM) Glucose (74-99) mg/dL Plasma Lactic Acid Chip 1.8 (0.7-2.0) mmol/L Calcium (8.4-10.2) mg/dL Total Bilirubin (0.2-1.3) mg/dL AST (14-36) U/L ALT (4-34) U/L Alkaline Phosphatase (38-126) U/L Troponin I <0.012 (0.000-0.034) ng/mL Total Protein (6.3-8.2) g/dL Albumin (3.5-5.0) g/dL Amylase (30-110) U/L Lipase (23-300) U/L Urine Color Light Yellow Urine Appearance Cloudy H (Clear) Urine pH 5.5 (5.0-8.0) Ur Specific [place] 1.014 (1.001-1.035) Urine Protein Negative (Negative) Urine Glucose (UA) Negative (Negative) Urine Ketones Negative (Negative) Urine Blood Moderate H (Negative) Urine Nitrite Positive H (Negative) Urine Bilirubin Negative (Negative) Urine Urobilinogen <2.0 (<2.0) mg/dL Ur Leukocyte Esterase Large H (Negative) Urine RBC 3 (0-5) /hpf Urine WBC 15 H (0-5) /hpf Urine WBC Clumps Few H (None) /hpf Ur Squamous Epith Cells 2 (0-4) /hpf Urine Bacteria Many H (None) /hpf Disposition Clinical Impression: UTI (urinary tract infection) Disposition: HOME SELF-CARE Condition: Stable Instructions (If sedation given, give patient instructions): Urinary Tract Infection in Women (ED) Additional Instructions: Complete course of antibiotic as prescribed. Continue your tramadol as previously prescribed for pain as needed. Stay well hydrated. Please follow-up with her primary care provider. Please return to the Emergency Department if symptoms worsen or any other concerns. Prescriptions: Ciprofloxacin HCl [Cipro] 500 mg PO Q12HR 5 Days #10 tab Is patient prescribed a controlled substance at d/c from ED?: No Referrals: Miguel Siemntal MD [Primary Care Provider] - 1-2 days
[2022-09-16] MEDS ORDERED: KETOROLAC 15 MG/ML 1 ML VIAL IVP SCH (12:00)
[2022-09-18 15:07] LABS: Basophils % (A) 0 %; Eosinophils # (A) 0.1 k/uL (0-0.7); Eosinophils % (A) 0 %; HCT 38.1 % (34.0-46.0); HGB 12.9 gm/dL (11.4-16.0); Lymphocytes # (A) 1.7 k/uL (1.0-4.8); Lymphocytes % (A) 11 %; MCH 30.6 pg (25.0-35.0); MCHC 33.8 g/dL (31.0-37.0); MCV 90.5 fL (80.0-100.0); Mean Platelet Volume 8.6; Monocytes # (A) 0.5 k/uL (0-1.0); Monocytes % (A) 4 %; Neutrophils % (A) 84 %; Platelet Count 210 k/uL (150-450); RBC 4.21 m/uL (3.80-5.40); RDW 14.3 % (11.5-15.5); WBC 15.4 k/uL (3.8-10.6)
[2022-09-18 15:20] LABS: Potassium 3.5 mmol/L (3.5-5.1)
[2022-09-18 15:21] LABS: ALT 34 U/L (4-34); AST 36 U/L (14-36); African American GFR (CKD) >90 (>60 ml/min/1.73 sqM); Albumin 3.7 g/dL (3.5-5.0); Alkaline Phosphatase 67 U/L (38-126); Anion Gap 12 mmol/L; Blood Urea Nitrogen 18 mg/dL (7-17); Calcium 8.7 mg/dL (8.4-10.2); Carbon Dioxide 24 mmol/L (22-30); Chloride 97 mmol/L (98-107); Glucose 173 mg/dL (74-99); Magnesium 1.9 mg/dL (1.6-2.3); Non-African American GFR(CKD) 85 (>60 ml/min/1.73 sqM); Sodium 133 mmol/L (137-145); Total Bilirubin 0.8 mg/dL (0.2-1.3); Total Protein 7.6 g/dL (6.3-8.2)
== END 2022-09-16 11:00 | disposition home or self-care (01) ==
LOC: EC 07:23
DX: N39.0 Urinary tract infection, site not specified (principal); B96.20 Unspecified Escherichia coli [E. coli] as the cause of diseases classified elsewhere; I10 Essential (primary) hypertension; M19.90 Unspecified osteoarthritis, unspecified site; F32.A Depression, unspecified; Z79.82 Long term (current) use of aspirin; Z79.899 Other long term (current) drug therapy
CPT/HCPCS: 36415; 93005; 80053; 82150; 83605; 83690; 84484; 85025; 85610; 81001; 87040; 87086; 87077; 87186; 74177; 99285; 96374; 96375 ×2; 96361; J2270; J0696; J1885; Q9967

== ENCOUNTER 2022-09-18 18:24 | Observation (INO) | payer MEDICARE ==
[2022-09-18] MEDS ORDERED: SODIUM CHLORIDE 0.9% 1,000 ML IV STA ×2 (18:31)
[2022-09-18] MEDS ORDERED: PIPERACILLIN-TAZOBACTAM 3.375 GM in SODIUM CHLORIDE 0.9% 100 ML IVPB STA (18:34)
[2022-09-18] MEDS ORDERED: MORPHINE SULFATE 4 MG/ML SYRINGE IVP STA (18:56)
--- NOTE | 2022-09-18 19:01 | ED ---
General Adult HPI - General Chief complaint: Abdominal Pain Stated complaint: Pre Surgery Time Seen by Provider: 09/18/22 18:29 Source: patient, RN notes reviewed, old records reviewed Mode of arrival: wheelchair Limitations: no limitations - History of Present Illness Initial comments: Patient is a 76-year-old female who presents emergency Department complaining of right lower quadrant abdominal pain. He was evaluated 2 days ago and diagnosed with a UTI following CT imaging and lab studies done here in the emergency department. Followed up with her PCP earlier today, and repeat CT imaging was obtained as well as repeat labs. Patient still has a white blood cell count of 15. Patient's CT imaging from today reveals findings concerning for acute appendicitis. She states that the pain in the right lower quadrant, worse over the last 2 days. They're seeing increased free fluid on the outpatient CT as well as a hypodensity suspicious for appendicitis. Patient was instructed to come to the emergency department for admission. Patient currently has no acute complaints other than the pain. Denies fevers. Denies any previous abdominal surgeries. Presents for admission and further evaluation. - Related Data Home Medications Medication Instructions Recorded Confirmed Losartan Potassium [Cozaar] 100 mg PO DAILY 11/14/21 09/18/22 traMADol HCL 50 mg PO BID PRN 11/14/21 09/18/22 Aspirin 81 mg PO DAILY 09/18/22 09/18/22 Meloxicam [Mobic] 15 mg PO DAILY 09/18/22 09/18/22 Multivitamins, Thera [Multivitamin 1 tab PO DAILY 09/18/22 09/18/22 (formulary)] Sulfamethox-Tmp 800-160Mg [Bactrim 1 tab PO Q12HR 09/18/22 09/18/22 DS 800-160 mg] amLODIPine [Norvasc] 5 mg PO DAILY 09/18/22 09/18/22 hydroCHLOROthiazide [Hydrodiuril] 25 mg PO DAILY 09/18/22 09/18/22 metFORMIN HCL ER [Glucophage XR] 500 mg PO DAILY 09/18/22 09/18/22 prednisoLONE ACETATE 1% OPHTH 1 drops BOTH EYES Q48H 09/18/22 09/18/22 [Pred Forte 1%] Allergies Allergy/AdvReac Type Severity Reaction Status Date / Time No Known Allergies Allergy Verified 09/18/22 19:17 Review of Systems ROS Statement: Those systems with pertinent positive or pertinent negative responses have been documented in the HPI. Review of Systems: CONST: Denies fever EYES: Denies blurry vision ENT: Denies nasal congestion C/V: Denies Chest pain RESP: Denies shortness of breath GI: Endorses right lower quadrant abdominal pain : Denies dysuria SKIN: Denies rash. MSK: Denies joint pain. NEURO: Denies headache ROS Other: All systems not noted in ROS Statement are negative. Past Medical History Past Medical History: Hypertension, Osteoarthritis (OA) History of Any Multi-Drug Resistant Organisms: None Reported Additional Past Surgical History / Comment(s): corneal transplant ana maria eyes, colonoscopy Past Anesthesia/Blood Transfusion Reactions: No Reported Reaction Past Psychological History: Depression Smoking Status: Never smoker Past Alcohol Use History: None Reported Past Drug Use History: None Reported - Past Family History Mother Family Medical History: Coronary Artery Disease (CAD) General Exam - General Exam Comments Initial Comments: General: Appears in mild to moderate distress secondary to abdominal pain. HEAD: Normal with no signs of head trauma. EYES: PERRLA, EOMI, conjunctiva normal, no discharge. ENT: Hearing grossly intact, normal oropharynx. RESPIRATORY: Clear breath sounds bilaterally. No wheezes, rales, or rhonchi. C/V: Regular rate and rhythm. S1 and S2 auscultated, no edema, peripheral pulses 2+ and intact throughout ABD: Abdomen is soft, nondistended. Tender to palpation in the right lower quadrant. No guarding. No peritoneal signs. No rebound tenderness. EXT: Normal range of motion, no obvious deformity SKIN: No rashes or lesions observed on exposed skin. NEURO: Alert and oriented 4. Limitations: no limitations Course Vital Signs 09/18/22 18:32 Temperature 99 F Pulse Rate 95 Respiratory 16 Rate Blood Pressure 140/74 O2 Sat by Pulse 100 Oximetry Medical Decision Making - Medical Decision Making Was pt. sent in by a medical professional or institution (, PA, DORR OPERATOR, urgent care, hospital, or jail...) When possible be specific @ -No Did you speak to anyone other than the patient for history (EMS, parent, family, police, friend...)? What history was obtained from this source @ -No Did you review nursing and triage notes (agree or disagree)? Why? @ -I reviewed and agree with nursing and triage notes Were old charts reviewed (outside hosp., previous admission, EMS record, old EKG, old radiological studies, urgent care reports/EKG's, jail records)? Report findings @ -Old charts from 09/16/[address] imaging were reviewed. Differential Diagnosis (chest pain, altered mental status, abdominal pain women, abdominal pain men, vaginal bleeding, weakness, fever, dyspnea, syncope, headache, dizziness, GI bleed, back pain, seizure, CVA, palpatations, mental health, musculoskeletal)? @ -Differential Abdominal Pain Women: Appendicitis, Cholecystitis, diverticulosis, ischemic bowel, pancreatitis, hepatitis, UTI, gastroenteritis, AAA, incarcerated hernia, bowel obstruction, constipation, inflammatory bowel, hepatitis, peptic ulcer disease, splenic infarction, perforated viscus, vulvitis, ovarian torsion, PID, kidney stone, [place] abruption, this is not meant to be an all-inclusive list EKG interpreted by me (3pts min.). @ -As above X-rays interpreted by me (1pt min.). @ -None done CT interpreted by me (1pt min.). @ -None done U/S interpreted by me (1pt. min.). @ -None done What testing was considered but not performed or refused? (CT, X-rays, U/S, labs)? Why? @ -None What meds were considered but not given or refused? Why? @ -None Did you discuss the management of the patient with other professionals (professionals i.e. , PA, DORR OPERATOR, lab, RT, psych nurse, rn social work, spindraw operator, teacher, custodial officer, telephonic nurse case manager)? Give summary @ -Discussed with Dr. smith the patient's PCP who inform me of the patient's arrival. Discussed with the admitting physician, Dr. South who accepted the admission. Discussed with consulting medicine, Dr. Zee who agreed to consult. Was smoking cessation discussed for >3mins.? @ -No Was critical care preformed (if so, how long)? @ -No Were there social determinants of health that impacted care today? How? (Homele ssness, low income, unemployed, alcoholism, drug addiction, transportation, low edu. Level, literacy, decrease access to med. care, halfway, rehab)? @ -No Was there de-escalation of care discussed even if they declined (Discuss DNR or withdrawal of care, Hospice)? DNR status @ -No What co-morbidities impacted this encounter? (DM, HTN, Smoking, COPD, CAD, Cancer, CVA, ARF, Chemo, Hep., AIDS, mental health diagnosis, sleep apnea, morbid obesity)? @ -None Was patient admitted / discharged? Hospital course, mention meds given and route, prescriptions, significant lab abnormalities, going to OR and other pertinent info. @ -Based on the patient's presentation and physical exam, I'm concerned for acute appendicitis. Workup was nearly completed by the time she presented. Labs earlier showed a continued white blood cell count. CT imaging showed signs concerning for appendicitis. She'll be admitted. Vital signs within acceptable limits. She'll be given morphine for pain control, as well as be started on IV fluids. She'll be started on IV Zosyn for appendicitis. Patient is made nothing by mouth except for popsicles as well as ice chips per Dr. South, the admitting surgeon who accepted the patient. Son physician group Dr. Zee was consulted for medical management. Repeat labs were drawn. Patient was in agreement with this plan. Patient continues to have a mild leukocytosis of 13. Remainder of the labs within acceptable limits. EKG shows no signs of acute ischemia. Patient admitted in stable condition. Undiagnosed new problem with uncertain prognosis? @ -No Drug Therapy requiring intensive monitoring for toxicity (Heparin, Nitro, Insulin, Cardizem)? @ -No Were any procedures done? @ -No Diagnosis/symptom? @ -Appendicitis Acute, or Chronic, or Acute on Chronic? @ -Acute Uncomplicated (without systemic symptoms) or Complicated (systemic symptoms)? @ -Complicated Side effects of treatment? @ -No Exacerbation, Progression, or Severe Exacerbation? @ -No Poses a threat to life or bodily function? How? (Chest pain, [place], [place], pneumonia, PE, COPD, DKA, ARF, appy, cholecystitis, CVA, Diverticulitis, Homicidal, Suic idal, threat to staff... and all critical care pts) @ -yes - Lab Data Result diagrams: 09/18/22 19:21 09/18/22 19:21 - EKG Data -: EKG Interpreted by Me EKG Comments: 12-lead Electrocardiogram Interpretation Note EKG was reviewed and interpreted by myself. 12-lead ECG performed at 1934 is interpreted by me as revealing normal sinus rhythm at a rate of 93 beats per minute. [place] is normal. [place] interval is 150 ms, QRS duration is 89 ms, QTc is 401 ms.. There were no ST or T wave abnormalities to suggest myocardial ischemia or injury. R wave progression across the precordium was satisfactory. By my interpretation this EKG is non-diagnostic for acute ischemia. Disposition Clinical Impression: Appendicitis, acute Disposition: ADMITTED IP TO THIS HOSP Condition: Stable Time of Disposition: 19:00
[2022-09-18] MEDS ORDERED: ONDANSETRON 4 MG/2 ML VIAL IVP PRN (19:08)
[2022-09-18] MEDS ORDERED: NALOXONE 0.4 MG/ML 1 ML VIAL IV PRN (19:08)
[2022-09-18] MEDS ORDERED: ACETAMINOPHEN TAB 325 MG TAB PO PRN (19:08)
[2022-09-18 19:54] LABS: Basophils % (A) 0 %; Eosinophils # (A) 0.1 k/uL (0-0.7); Eosinophils % (A) 0 %; HCT 36.7 % (34.0-46.0); HGB 12.5 gm/dL (11.4-16.0); Lymphocytes # (A) 2.4 k/uL (1.0-4.8); Lymphocytes % (A) 17 %; MCH 30.4 pg (25.0-35.0); MCHC 33.9 g/dL (31.0-37.0); MCV 89.6 fL (80.0-100.0); Mean Platelet Volume 8.8; Monocytes # (A) 0.4 k/uL (0-1.0); Monocytes % (A) 3 %; Neutrophils # (A) 10.8 k/uL (1.3-7.7); Neutrophils % (A) 78 %; Platelet Count 194 k/uL (150-450); WBC 13.8 k/uL (3.8-10.6)
[2022-09-18 20:09] LABS: ALT 38 U/L (4-34); AST 38 U/L (14-36); African American GFR (CKD) >90 (>60 ml/min/1.73 sqM); Albumin 3.6 g/dL (3.5-5.0); Alkaline Phosphatase 65 U/L (38-126); Anion Gap 9 mmol/L; Blood Urea Nitrogen 15 mg/dL (7-17); Calcium 8.5 mg/dL (8.4-10.2); Carbon Dioxide 25 mmol/L (22-30); Chloride 97 mmol/L (98-107); Glucose 138 mg/dL (74-99); Lipase 30 U/L (23-300); Non-African American GFR(CKD) 79 (>60 ml/min/1.73 sqM); Potassium 3.2 mmol/L (3.5-5.1); Sodium 131 mmol/L (137-145); Total Bilirubin 0.9 mg/dL (0.2-1.3); Total Protein 7.4 g/dL (6.3-8.2)
--- NOTE | 2022-09-18 22:13 | P.CONS ---
History of Present Illness - Reason for Consult Consult date: 09/18/22 - History of Present Illness Patient is a 76-year-old female with a PMH of hypertension and type II DM who presents to the emergency room with complaints of diffuse lower abdominal pain. The patient reports that her symptoms started this past Wednesday with diffuse lower abdominal discomfort. Reports that the pain was constant, 5 out of 10 on maximal intensity, without associated nausea or vomiting, with no alleviating or exacerbating features. The patient was seen in the emergency room on Wednesday for the above pain, at which time a CT abdomen with contrast revealed no acute findings. The patient was diagnosed with UTI, was given a dose of ceftriaxone and started on ciprofloxacin and was discharged home. The patient reports that her abdominal discomfort persisted and saw her PCP earlier today who ordered a r epeat CT abdomen and pelvis with contrast which revealed possible appendicitis. At time of interview, the patient reports that her pain is significantly improved after having received morphine in the emergency room. EKG in the emergency room revealed sinus rhythm with PVCs at 93 bpm as reviewed by me. Laboratory evaluation revealed leukocytosis of 13.8, sodium 131, potassium 3.2, chloride 97, lactic acid 1.7, glucose 138, AST 38, nail to 38. ED documentation reviewed and case discussed with ED provider. Review of systems: Pertinent positives and negatives as discussed in HPI, a complete review of systems was performed and all other systems are negative. Physical examination: Vital signs reviewed General: non toxic, no distress, appears at stated age, normal weight Derm: no unusual rashes/lesions, warm Head: atraumatic, normocephalic, symmetric Eyes: EOMI, no lid lag, anicteric sclera, pupils equal round reactive to light ENT: Nose and ears atraumatic Neck: No cervical lymphadenopathy, trachea midline, supple Mouth: no lip lesion, mucus membranes moist Cardiovascular: S1S2 reg, no murmur, positive dorsalis pedis pulse bilateral, no edema Lungs: CTA bilateral, no rhonchi, no rales, no accessory muscle use Abdominal: soft, diffuse mild lower abdominal tenderness, no guarding Ext: muscle strength 5 out of 5 in all 4 extremities grossly, no gross muscle atrophy, no contractures, Neuro: CN II-XI grossly intact, no gross focal neuro deficits Psych: Alert, oriented, appropriate affect Assessment: Hypokalemia Hypertension Acute appendicitis Imaging: EKG in the emergency room revealed sinus rhythm with PVCs at 93 bpm as reviewed by me. Data Review: Laboratory evaluation revealed leukocytosis of 13.8, sodium 131, potassium 3.2, chloride 97, lactic acid 1.7, glucose 138, AST 38, nail to 38. Plan: Replace potassium and monitor Continue with home medications Defer management of acute appendicitis to primary surgery service Patient currently on broad-spectrum IV antibiotics with Zosyn Pain control currently with morphine 4 mg IV every 4 when necessary Continue with normal saline currently on 130 ML's per hour Follow up blood cultures' Nothing by mouth for now Insulin sliding scale and blood glucose monitoring We appreciate this opportunity to be involved in this patient's care. We will follow the patient with you. For any further questions, please not hesitate to contact the [facility] inpatient team. Past Medical History Past Medical History: Hypertension, Osteoarthritis (OA) History of Any Multi-Drug Resistant Organisms: None Reported Additional Past Surgical History / Comment(s): corneal transplant ana maria eyes, colonoscopy Past Anesthesia/Blood Transfusion Reactions: No Reported Reaction Past Psychological History: Depression Smoking Status: Never smoker Past Alcohol Use History: None Reported Past Drug Use History: None Reported - Past Family History Mother Family Medical History: Coronary Artery Disease (CAD) Medications and Allergies Home Medications Medication Instructions Recorded Confirmed Type Losartan Potassium [Cozaar] 100 mg PO DAILY 11/14/21 09/18/22 History traMADol HCL 50 mg PO BID PRN 11/14/21 09/18/22 History Aspirin 81 mg PO DAILY 09/18/22 09/18/22 History Meloxicam [Mobic] 15 mg PO DAILY 09/18/22 09/18/22 History Multivitamins, Thera [Multivitamin 1 tab PO DAILY 09/18/22 09/18/22 History (formulary)] Sulfamethox-Tmp 800-160Mg [Bactrim 1 tab PO Q12HR 09/18/22 09/18/22 History DS 800-160 mg] amLODIPine [Norvasc] 5 mg PO DAILY 09/18/22 09/18/22 History hydroCHLOROthiazide [Hydrodiuril] 25 mg PO DAILY 09/18/22 09/18/22 History metFORMIN HCL ER [Glucophage XR] 500 mg PO DAILY 09/18/22 09/18/22 History prednisoLONE ACETATE 1% OPHTH 1 drops BOTH EYES Q48H 09/18/22 09/18/22 History [Pred Forte 1%] Allergies Allergy/AdvReac Type Severity Reaction Status Date / Time No Known Allergies Allergy Verified 09/18/22 19:17 Physical Exam Vitals: Vital Signs Temp Pulse Resp BP Pulse Ox 09/18/22 18:32 99 F 95 16 140/74 100 Intake and Output 09/18/22 09/18/22 09/18/22 06:59 14:59 22:59 Other: Weight 88.904 kg Results CBC & Chem 7: 09/18/22 19:21 09/18/22 19:21 Labs: Abnormal Lab Results - Last 24 Hours (Table) 09/18/22 09/18/22 Range/Units 19:21 19:21 WBC 13.8 H (3.8-10.6) k/uL Neutrophils # 10.8 H (1.3-7.7) k/uL Sodium 131 L (137-145) mmol/L Potassium 3.2 L (3.5-5.1) mmol/L Chloride 97 L (98-107) mmol/L Glucose 138 H (74-99) mg/dL AST 38 H (14-36) U/L ALT 38 H (4-34) U/L
[2022-09-18] MEDS ORDERED: traMADol 50 MG TAB PO PRN (22:30)
[2022-09-19] MEDS: MORPHINE SULFATE 4 MG/ML SYRINGE IV PRN ×3 (00:14→10:24)
[2022-09-19] MEDS ORDERED: POTASSIUM CHLORIDE ER 20 MEQ TAB.ER PO STA (01:52)
[2022-09-19] MEDS: PIPERACILLIN-TAZOBACTAM 3.375 GM in SODIUM CHLORIDE 0.9% 100 ML IVPB SCH ×2 (03:59→13:48)
[2022-09-19 06:05] LABS: Basophils % (A) 0 %; Eosinophils # (A) 0.1 k/uL (0-0.7); Eosinophils % (A) 1 %; HCT 31.1 % (34.0-46.0); HGB 10.9 gm/dL (11.4-16.0); Lymphocytes # (A) 2.1 k/uL (1.0-4.8); Lymphocytes % (A) 22 %; MCH 31.6 pg (25.0-35.0); MCHC 35.1 g/dL (31.0-37.0); MCV 90.1 fL (80.0-100.0); Mean Platelet Volume 8.1; Monocytes # (A) 0.5 k/uL (0-1.0); Monocytes % (A) 5 %; Neutrophils # (A) 6.9 k/uL (1.3-7.7); Neutrophils % (A) 70 %; Platelet Count 173 k/uL (150-450); RBC 3.45 m/uL (3.80-5.40); RDW 14.1 % (11.5-15.5); WBC 9.8 k/uL (3.8-10.6)
[2022-09-19 06:20] LABS: African American GFR (CKD) >90 (>60 ml/min/1.73 sqM); Anion Gap 4 mmol/L; Blood Urea Nitrogen 10 mg/dL (7-17); Calcium 7.7 mg/dL (8.4-10.2); Carbon Dioxide 27 mmol/L (22-30); Chloride 104 mmol/L (98-107); Glucose 106 mg/dL (74-99); Non-African American GFR(CKD) 84 (>60 ml/min/1.73 sqM); Potassium 3.5 mmol/L (3.5-5.1); Sodium 135 mmol/L (137-145)
[2022-09-19 07:51] VITALS: RESP 16
[2022-09-19 08:08] LABS: Glucose,Whole Blood 110 mg/dL (70-110)
[2022-09-19] MEDS: INSULIN ASPART (NovoLOG) 100 UNIT/ML VIAL SQ SCH ×3 (08:36→17:29)
[2022-09-19] MEDS ORDERED: LOSARTAN 50 MG TAB PO SCH (09:00)
[2022-09-19] MEDS ORDERED: amLODIPine 5 MG TAB PO SCH (09:00)
[2022-09-19] MEDS ORDERED: ASPIRIN 81 MG PO SCH (09:00)
[2022-09-19] MEDS ORDERED: prednisoLONE ACETATE 1% OPHTH DROPS 5 ML BTL BOTH EYES SCH (09:00)
[2022-09-19] MEDS: LACTATED RINGERS 1,000 ML IV ONE ×3 (11:15→14:45)
[2022-09-19] MEDS ORDERED: HEPARIN SODIUM,PORCINE/PF 5,000 UNIT/0.5 ML SYRINGE SQ PRN (11:25)
[2022-09-19] MEDS ORDERED: HEPARIN SODIUM,PORCINE 5,000 UNIT/ML 1 ML VIAL SQ ONE (11:29)
--- NOTE | 2022-09-19 11:31 | P.GSHP ---
History of Present Illness H&P Date: 09/19/22 CHIEF COMPLAINT: Bilateral lower abdominal pain HISTORY OF PRESENT ILLNESS: The patient 76-year-old female with hypertensive heart disease, diabetes type 2 who presents with 1 week history of lower abdominal pain and crampy dull ache in nature. She states the intensity of the pain is moderate. She had previously presented to the emergency room 4 days ago where a computed tomography scan at that time demonstrated no acute findings. She was given antibiotic and treated for urinary tract infection. As her symptoms persisted she had a repeat computed tomography scan this time with IV contrast demonstrating possibility of appendicitis. She still complains of bilateral lower abdominal pain with tenesmus. She is admitted for appendicitis per computed tomography scan. PAST MEDICAL HISTORY: See list and reviewed PAST SURGICAL HISTORY: See list and reviewed CURRENT MEDICATIONS: See list and reviewed ALLERGIES: See list and reviewed SOCIAL HISTORY: See list and reviewed FAMILY HISTORY: See list and reviewed REVIEW OF ORGAN SYSTEMS: CONSTITUTIONAL: Present fever, no chills. Denies recent weight loss. HEENT: Denies any trouble with vision, hearing or nosebleeds. No difficulty swallowing. LYMPHATIC: The patient denies any lumps and bumps around the neck. ENDOCRINE: Denies any thyroid disorders. Has diabetes type 2 RESPIRATORY: Denies shortness of breath including chronic cough. CARDIOVASCULAR: Denies history of chest pain with exertion. Has hypertensive heart disease. GASTROINTESTINAL: Denies regurgitation of bile at night as well as intermittent nausea. No blood in stools. GENITOURINARY: Denies any blood in urine or increased urinary frequency. MUSCULOSKELETAL: Has current joint arthritis. NEUROLOGIC: Denies any numbness or tingling along the distal extremities. No seizure disorders or headaches. PSYCHIATRIC: Denies any depression or suicidal ideation. HEMATOLOGIC: Denies any abnormal bleeding or bruising. PHYSICAL EXAMINATION: VITALS: Reviewed. GENERAL: Well-developed and in no acute distress. Pleasant. HEENT: No sclera icterus. Extraocular movements grossly intact. Moist buccal mucosa. Head is atraumatic, normocephalic. Hears conversational speech. No nasal drainage. NECK: Supple without lymphadenopathy. No JV distention. CHEST: Non-labored respirations and equal bilateral excursions. CARDIOVASCULAR: Regular rate and rhythm. Palpable 2+ radial pulses. ABDOMEN: No peritonitis. Lower abdominal pain. MUSCULOSKELETAL: No clubbing, cyanosis or edema. NEUROLOGIC: No focal or lateralizing signs. PSYCH: Appropriate affect. Alert and oriented to person, place and time. SKIN: Well perfused. Good skin turgor. LABS: Reviewed. White blood cell count elevated over 15,000. STUDIES: CT of the abdomen and pelvis on this admission reviewed without definitive evidence of appendicitis. Cecum low within the pelvis. Presence of diverticulosis. Right ovarian cyst present. This is my independent interpretation. Prior CT of the pelvis from 09/15/2022 demonstrates no acute findings. No inflammatory changes or appendicitis identified. This is my independent interpretation. REPORTS: CT of the abdomen and pelvis on this admission demonstrates possible appendicitis. EKG: Review demonstrated premature ventricular complexes. No acute myocardial infarction. ASSESSMENT: 1. Computed tomography scan appendicitis 2. Bilateral lower abdominal pain 3. Right ovarian cyst 4. Hypertensive heart disease 5. Diabetes type 2 PLAN: 1. Continue IV antibiotics. 2. Upon discussion with patient, clinical picture not likely appendicitis with lower abdominal pain without foci of the right lower quadrant. Appendectomy as described with diagnostic laparoscopy for further clinical assessment. 3. She has a right ovarian cyst which may be managed with gynecology. 4. She is elevated risk for complications due to pre-existing conditions 5. Medicine consultation due to comorbidities 6. DVT prophylaxis Thank you very much for allowing me to participate in the care of your patient. Past Medical History Past Medical History: Hypertension, Osteoarthritis (OA) History of Any Multi-Drug Resistant Organisms: None Reported Additional Past Surgical History / Comment(s): corneal transplant ana maria eyes, colonoscopy Past Anesthesia/Blood Transfusion Reactions: No Reported Reaction Past Psychological History: Depression Smoking Status: Never smoker Past Alcohol Use History: None Reported Past Drug Use History: None Reported - Past Family History Mother Family Medical History: Coronary Artery Disease (CAD) Medications and Allergies Home Medications Medication Instructions Recorded Confirmed Type Losartan Potassium [Cozaar] 100 mg PO DAILY 11/14/21 09/18/22 History traMADol HCL 50 mg PO BID PRN 11/14/21 09/18/22 History Aspirin 81 mg PO DAILY 09/18/22 09/18/22 History Meloxicam [Mobic] 15 mg PO DAILY 09/18/22 09/18/22 History Multivitamins, Thera [Multivitamin 1 tab PO DAILY 09/18/22 09/18/22 History (formulary)] Sulfamethox-Tmp 800-160Mg [Bactrim 1 tab PO Q12HR 09/18/22 09/18/22 History DS 800-160 mg] amLODIPine [Norvasc] 5 mg PO DAILY 09/18/22 09/18/22 History hydroCHLOROthiazide [Hydrodiuril] 25 mg PO DAILY 09/18/22 09/18/22 History metFORMIN HCL ER [Glucophage XR] 500 mg PO DAILY 09/18/22 09/18/22 History prednisoLONE ACETATE 1% OPHTH 1 drops BOTH EYES Q48H 09/18/22 09/18/22 History [Pred Forte 1%] Allergies Allergy/AdvReac Type Severity Reaction Status Date / Time No Known Allergies Allergy Verified 09/18/22 19:17 Surgical - Exam Vital Signs Temp Pulse Resp BP Pulse Ox 99 F 95 16 140/74 100 09/18/22 18:32 09/18/22 18:32 09/18/22 18:32 09/18/22 18:32 09/18/22 18:32 Results - Labs 09/19/22 05:42 09/19/22 05:42 Abnormal Lab Results - Last 24 Hours (Table) 09/18/22 09/18/22 09/19/22 Range/Units 19:21 19:21 05:42 WBC 13.8 H (3.8-10.6) k/uL RBC 3.45 L (3.80-5.40) m/uL Hgb 10.9 L (11.4-16.0) gm/dL Hct 31.1 L (34.0-46.0) % Neutrophils # 10.8 H (1.3-7.7) k/uL Sodium 131 L (137-145) mmol/L Potassium 3.2 L (3.5-5.1) mmol/L Chloride 97 L (98-107) mmol/L Glucose 138 H (74-99) mg/dL Calcium (8.4-10.2) mg/dL AST 38 H (14-36) U/L ALT 38 H (4-34) U/L 09/19/22 Range/Units 05:42 WBC (3.8-10.6) k/uL RBC (3.80-5.40) m/uL Hgb (11.4-16.0) gm/dL Hct (34.0-46.0) % Neutrophils # (1.3-7.7) k/uL Sodium 135 L (137-145) mmol/L Potassium (3.5-5.1) mmol/L Chloride (98-107) mmol/L Glucose 106 H (74-99) mg/dL Calcium 7.7 L (8.4-10.2) mg/dL AST (14-36) U/L ALT (4-34) U/L Diabetes panel 09/18/22 09/19/22 Range/Units 19:21 05:42 Sodium 131 L 135 L (137-145) mmol/L Potassium 3.2 L 3.5 (3.5-5.1) mmol/L Chloride 97 L 104 (98-107) mmol/L Carbon Dioxide 25 27 (22-30) mmol/L BUN 15 10 (7-17) mg/dL Creatinine 0.75 0.72 (0.52-1.04) mg/dL Glucose 138 H 106 H (74-99) mg/dL Calcium 8.5 7.7 L (8.4-10.2) mg/dL AST 38 H (14-36) U/L ALT 38 H (4-34) U/L Alkaline Phosphatase 65 (38-126) U/L Total Protein 7.4 (6.3-8.2) g/dL Albumin 3.6 (3.5-5.0) g/dL Calcium panel 09/18/22 09/19/22 Range/Units 19:21 05:42 Calcium 8.5 7.7 L (8.4-10.2) mg/dL Albumin 3.6 (3.5-5.0) g/dL Pituitary panel 09/18/22 09/19/22 Range/Units 19:21 05:42 Sodium 131 L 135 L (137-145) mmol/L Potassium 3.2 L 3.5 (3.5-5.1) mmol/L Chloride 97 L 104 (98-107) mmol/L Carbon Dioxide 25 27 (22-30) mmol/L BUN 15 10 (7-17) mg/dL Creatinine 0.75 0.72 (0.52-1.04) mg/dL Glucose 138 H 106 H (74-99) mg/dL Calcium 8.5 7.7 L (8.4-10.2) mg/dL Adrenal panel 09/18/22 09/19/22 Range/Units 19:21 05:42 Sodium 131 L 135 L (137-145) mmol/L Potassium 3.2 L 3.5 (3.5-5.1) mmol/L Chloride 97 L 104 (98-107) mmol/L Carbon Dioxide 25 27 (22-30) mmol/L BUN 15 10 (7-17) mg/dL Creatinine 0.75 0.72 (0.52-1.04) mg/dL Glucose 138 H 106 H (74-99) mg/dL Calcium 8.5 7.7 L (8.4-10.2) mg/dL Total Bilirubin 0.9 (0.2-1.3) mg/dL AST 38 H (14-36) U/L ALT 38 H (4-34) U/L Alkaline Phosphatase 65 (38-126) U/L Total Protein 7.4 (6.3-8.2) g/dL Albumin 3.6 (3.5-5.0) g/dL
[2022-09-19] MEDS ORDERED: ONDANSETRON 4 MG/2 ML VIAL IVP ONE (11:36)
[2022-09-19] MEDS ORDERED: GLYCOPYRROLATE 0.2 MG/ML 2 ML VIAL ONE (12:12)
[2022-09-19] MEDS ORDERED: MIDAZOLAM 2 MG/2 ML VIAL ONE (12:12)
[2022-09-19] MEDS ORDERED: PHENYLEPHRINE-0.9% NACL SYG 1,000 MCG/10 ML SYRINGE ONE (12:12)
[2022-09-19] MEDS ORDERED: PROPOFOL 10 MG/ML 20 ML VIAL IV ONE (12:12)
[2022-09-19] MEDS ORDERED: SODIUM CHLORIDE 0.9% 100 ML BAG ONE (12:12)
[2022-09-19] MEDS ORDERED: fentaNYL (PF) 50 MCG/ML 2 ML AMP ONE (12:12)
[2022-09-19] MEDS ORDERED: ROCURONIUM 10 MG/ML (5 ML VIAL) IV ONE (12:12)
[2022-09-19] MEDS ORDERED: ceFAZolin 1,000 MG VIAL ONE (12:12)
[2022-09-19] MEDS ORDERED: LIDOCAINE 2% INJ 20 MG/ML (2 ML VIAL) ONE (12:12)
[2022-09-19] MEDS ORDERED: NEOSTIGMINE 1 MG/ML 10 ML VIAL ONE (12:12)
[2022-09-19] MEDS ORDERED: SUCCINYLCHOLINE CHLORIDE 200 MG/10 ML VIAL IV ONE (12:12)
[2022-09-19] MEDS ORDERED: SODIUM CHLORIDE 0.9% 50 ML with ceFAZolin 2,000 MG IV ONE ×2 (12:38)
[2022-09-19] MEDS ORDERED: BUPIVACAINE (PF) 0.25% 30 ML VIAL SQ ONE (12:43)
[2022-09-19] MEDS ORDERED: LACTATED RINGERS 1,000 ML IV ONE (13:24)
[2022-09-19 13:41] LABS: Glucose,Whole Blood 97 mg/dL (70-110)
[2022-09-19] MEDS ORDERED: ACETAMINOPHEN IV (For NPO) 1,000 MG in EMPTY BAG 1 BAG IVPB ONE (13:43)
[2022-09-19] MEDS ORDERED: DEXTROSE 50% SYRINGE 50 ML IVP PRN ×2 (13:45)
--- NOTE | 2022-09-19 13:50 | P.OP ---
Date of Procedure: 09/19/22 Description of Procedure: SURGEON: ERMELINDA CARABALLO MD Preoperative Diagnosis: 1. Abnormal computed tomography scan for acute appendicitis 2. Bilateral lower abdominal pain 3. Hypertensive heart disease 4. Diabetes type 2, insulin-dependent 5. Osteoarthritis 6. Obesity due to excess calories, BMI 31.6 Postoperative Diagnosis: 1. Acute appendicitis, retrocecal with periappendicitis 2. Bilateral lower abdominal pain 3. Hypertensive heart disease 4. Diabetes type 2, insulin-dependent 5. Osteoarthritis 6. Obesity due to excess calories, BMI 31.6 Procedure(s) Performed: 1. Robotic-assisted daVinci Xi laparoscopic appendectomy Anesthesia: GETA, local Estimated Blood Loss (ml): 5 Pathology: other (appendix) Condition: stable Disposition: floor Operative Findings: 1. Acute appendicitis without rupture with periappendicitis, pelvis 2. Terminal ileum unremarkable 3. Cecum unremarkable 4. Redundant cecum abiding sigmoid colon 5. Appendix adherent to the right ovary, lysed INDICATIONS: The patient is a 76-year-old female who presents with protracted one-week course of bilateral lower abdominal pain. She was treated for urinary tract infection and on antibiotics. CT of the abdomen pelvis demonstrated acute appendicitis. Benefits and risks, including infection, open surgery, and bleeding for additional surgery was discussed at length. Informed consent was obtained. All questions of the patient and family were answered. DESCRIPTION: The patient was transferred to the operating room and placed in supine position. The patient had previously voided. The abdomen was then prepped and draped in standard sterile fashion as Ioban was placed along the abdomen to minimize any contamination of skin floor. After a timeout protocol was performed, attention was then brought to the left upper quadrant whereby a 0 degree 5 mm laparoscopic trocar entry was performed. The abdominal cavity was entered and insufflated to 12 mmHg pressure, which was tolerated well. Diagnostic laparoscopy demonstrated no injury to bowel, viscera or mesentery. Next a robotic 8-mm trocar was placed along the left lower quadrant, 10-cm lateral to the midline. A 12 mm port was placed along the left upper quadrant and another 8-mm port left lateral abdominal wall. Ports were placed 8 cm apart from each other including 15-20 cm away from the target anatomy of the right pelvis. The patient was then placed in Trendelenburg position, at least 14 down and right side up at least 7. The robotic da Bobby XI system was primed and docked from the left side of the patient. Using atraumatic graspers and vessel sealer, the robotic system was docked and primed as described. Instruments were interchanged by the assistant terminal manager including graspers, robotic stapler and vessel sealer. Next, attention was brought to identify the cecum. A systematic view within the abdominal cavity was started with the small bowel which was unremarkable. The base of the cecum was unremarkable. The cecum about the sigmoid colon with dense adhesions of the right pelvis. The appendix was adherent to the right ovary with inflammatory changes. The tip of the appendix was moderately dilated with moderate periappendicitis. No perforation was identified. The appendix was dissected free from its surrounding tissues. Blue 45 mm robotic staple loads were fired along the base of the appendix. The staple line was hemostatic. Hemostasis was checked prior to undocking the robot. The robot was undocked. I re-scrubbed into the case. The specimen was removed from the abdominal cavity with an Endo Catch bag through the 12 mm trocar at the left upper quadrant. All instruments and pneumoperitoneum were evacuated from the abdominal cavity. Local anesthetic was infiltrated to all wounds for postop analgesia. All incisions were also cleansed with diluted hydrogen peroxide. The incisions were closed with 4-0 Monocryl. Exofin glue was applied to the rest of the skin incisions. The patient had tolerated the procedure well. The patient was extubated successfully. The patient was transferred to the postanesthesia care unit in stable condition.
[2022-09-19 14:37] VITALS: TEMP 98.2
[2022-09-19] MEDS: ACETAMINOPHEN TAB 500 MG TAB PO SCH ×2 (14:43→17:29)
--- NOTE | 2022-09-19 14:47 | P.PN ---
Subjective Progress Note Date: 09/19/22 Patient is a 76-year-old female with a PMH of hypertension and type II DM who presents to the emergency room with complaints of diffuse lower abdominal pain. The patient reports that her symptoms started this past Wednesday with diffuse lower abdominal discomfort. Reports that the pain was constant, 5 out of 10 on maximal intensity, without associated nausea or vomiting, with no alleviating or exacerbating features. The patient was seen in the emergency room on Wednesday for the above pain, at which time a CT abdomen with contrast revealed no acute findings. The patient was diagnosed with UTI, was given a dose of ceftriaxone and started on ciprofloxacin and was discharged home. The patient reports that her abdominal discomfort persisted and saw her PCP earlier today who ordered a repeat CT abdomen and pelvis with contrast which revealed possible appendicitis. At time of interview, the patient reports that her pain is significantly improved after having received morphine in the emergency room. EKG in the emergency room revealed sinus rhythm with PVCs at 93 bpm. Laboratory evaluation revealed leukocytosis of 13.8, sodium 131, potassium 3.2, chloride 97, lactic acid 1.7, glucose 138, AST 38, ALT 38. 8/5 Patient was seen and examined in the morning. No acute events overnight. She reports generalized abdominal pain worse in the bilateral lower quadrant, 7 out of 10 in severity. No nausea or vomiting. Plans for possible surgery today. CBC shows hemoglobin of 10.9. BMP shows sodium of 135, glucose of 106 and calcium was 7.7. General: non toxic, no distress, appears at stated age, normal weight Derm: no unusual rashes/lesions, warm Head: atraumatic, normocephalic, symmetric Eyes: EOMI, no lid lag, anicteric sclera ENT: Nose and ears atraumatic Neck: No cervical lymphadenopathy, trachea midline, supple Cardiovascular: S1S2 reg, no murmur, no edema Lungs: CTA bilateral, no rhonchi, no rales, no accessory muscle use Abdominal: soft, diffuse mild lower abdominal tenderness, no guarding Ext: muscle strength 5 out of 5 in all 4 extremities grossly, no gross muscle atrophy, no contractures, Neuro: no gross focal neuro deficits Psych: Alert, oriented, appropriate affect Hypertension Diabetes mellitus Acute appendicitis Resolved: Hypokalemia Based on my assessment of this patient, this patient meets a moderate complexity level of care. Patient has a chronic diagnosis as below: Hypertension: Continue HCTZ 25 mg by mouth daily, amlodipine 5 mg by mouth daily, losartan 100 mg by mouth daily. Diabetes mellitus: Controlled with diet and metformin 500 mg by mouth daily at home. No insulin as she is nothing by mouth. Acute appendicitis: Management as per surgery. I have reviewed the following internet marketing consultant notes: I have reviewed the results of the following tests: CBC and BMP I have ordered the following tests: CBC and BMP I have discussed the care of this patient with the following independent historian: I have independently interpreted the following test below: I have discussed the management of this patient with the following physician: Objective - Vital Signs Vital signs: Vital Signs Temp 98.2 F 09/19/22 14:36 Pulse 80 09/19/22 14:36 Resp 16 09/19/22 14:36 BP 108/68 09/19/22 14:36 Pulse Ox 92 L 09/19/22 14:36 FiO2 Intake & Output 09/18/22 09/19/22 09/19/22 18:59 06:59 18:59 Intake Total 1100 Output Total 5 Balance 1095 Weight 88.904 kg 88.904 kg 88.904 kg Intake: IV 1100 Output: Estimated Blood Loss 5 Other: Voiding Method Toilet Toilet # Voids 1 - Labs CBC & Chem 7: 09/19/22 05:42 09/19/22 05:42 Labs: Abnormal Lab Results - Last 24 Hours (Table) 09/18/22 09/18/22 09/19/22 Range/Units 19:21 19:21 05:42 WBC 13.8 H (3.8-10.6) k/uL RBC 3.45 L (3.80-5.40) m/uL Hgb 10.9 L (11.4-16.0) gm/dL Hct 31.1 L (34.0-46.0) % Neutrophils # 10.8 H (1.3-7.7) k/uL Sodium 131 L (137-145) mmol/L Potassium 3.2 L (3.5-5.1) mmol/L Chloride 97 L (98-107) mmol/L Glucose 138 H (74-99) mg/dL Calcium (8.4-10.2) mg/dL AST 38 H (14-36) U/L ALT 38 H (4-34) U/L 09/19/22 Range/Units 05:42 WBC (3.8-10.6) k/uL RBC (3.80-5.40) m/uL Hgb (11.4-16.0) gm/dL Hct (34.0-46.0) % Neutrophils # (1.3-7.7) k/uL Sodium 135 L (137-145) mmol/L Potassium (3.5-5.1) mmol/L Chloride (98-107) mmol/L Glucose 106 H (74-99) mg/dL Calcium 7.7 L (8.4-10.2) mg/dL AST (14-36) U/L ALT (4-34) U/L
[2022-09-19] MEDS ORDERED: SIMETHICONE 80 MG CHEWABLE PO SCH (16:00)
[2022-09-19 17:27] LABS: Glucose,Whole Blood 135 mg/dL (70-110)
[2022-09-19 17:29] VITALS: BP 107/68; PULSE 87
[2022-09-19] MEDS ORDERED: TAMSULOSIN 0.4 MG CAP.ER.24H PO STA (18:12)
--- NOTE | 2022-09-19 18:16 | P.DS ---
Providers Date of admission: 09/18/22 19:08 Expected date of discharge: 09/19/22 Attending physician: Stacy South Consults: 09/18/22 19:03 Consult Physician Routine Consulting Provider: Feliz Zee Consult Reason/Comments: medical management Do you want consulting provider notified?: Already Contacted 09/19/22 11:24 Consult Physician Routine Consulting Provider: [facility] Consult Reason/Comments: [facility] Do you want consulting provider notified?: Yes Primary care physician: Miguel Simental MD Hospital Course: Doing well after surgery. Discharge home. FLomax for urinary retention. Patient Condition at Discharge: Stable Plan - Discharge Summary Discharge Rx Participant: No New Discharge Prescriptions: New Acetaminophen Tab [Tylenol Tab] 1,000 mg PO Q6HR PRN #30 tablet PRN Reason: Pain Ibuprofen [Motrin] 600 mg PO Q8HR PRN #30 tab PRN Reason: Pain Continue traMADol HCL 50 mg PO BID PRN PRN Reason: Pain metFORMIN HCL ER [Glucophage XR] 500 mg PO DAILY prednisoLONE ACETATE 1% OPHTH [Pred Forte 1%] 1 drops BOTH EYES Q48H hydroCHLOROthiazide [Hydrodiuril] 25 mg PO DAILY Multivitamins, Thera [Multivitamin (formulary)] 1 tab PO DAILY Losartan Potassium [Cozaar] 100 mg PO DAILY amLODIPine [Norvasc] 5 mg PO DAILY Aspirin 81 mg PO DAILY Discontinued Sulfamethox-Tmp 800-160Mg [Bactrim DS 800-160 mg] 1 tab PO Q12HR Meloxicam [Mobic] 15 mg PO DAILY Discharge Medication List Losartan Potassium [Cozaar] 100 mg PO DAILY 11/14/21 [History] traMADol HCL 50 mg PO BID PRN 11/14/21 [History] Aspirin 81 mg PO DAILY 09/18/22 [History] Multivitamins, Thera [Multivitamin (formulary)] 1 tab PO DAILY 09/18/22 [History] amLODIPine [Norvasc] 5 mg PO DAILY 09/18/22 [History] hydroCHLOROthiazide [Hydrodiuril] 25 mg PO DAILY 09/18/22 [History] metFORMIN HCL ER [Glucophage XR] 500 mg PO DAILY 09/18/22 [History] prednisoLONE ACETATE 1% OPHTH [Pred Forte 1%] 1 drops BOTH EYES Q48H 09/18/22 [History] Acetaminophen Tab [Tylenol Tab] 1,000 mg PO Q6HR PRN #30 tablet 09/19/22 [Rx] Ibuprofen [Motrin] 600 mg PO Q8HR PRN #30 tab 09/19/22 [Rx] Follow up Appointment(s)/Referral(s): Miguel Simental MD [Primary Care Provider] - 1-2 days Stacy South MD [STAFF PHYSICIAN] - 09/22/22 Patient Instructions/Handouts: Laparoscopic Appendectomy (DC) Activity/Diet/Wound Care/Special Instructions: NO lifting over 10 pounds for 2 weeks, Oct 03. May shower. May drive tomorrow. No bath tub soaks or swimming for 2 weeks, Oct 03 Discharge Disposition: HOME SELF-CARE
[2022-09-19] MEDS ORDERED: HEPARIN SODIUM,PORCINE 5,000 UNIT/ML 1 ML VIAL SQ SCH (21:00)
== END 2022-09-19 19:30 | disposition home or self-care (01) ==
LOC: EC 18:24 → 5NMEDONC 19:08 → INTOOBSV 19:08 → 5NMEDONC 23:10 → UNDODISIN 09-19 19:30
PROVIDERS: ADMIT Surgery Plastic and Reconstructive Surgery; ATTEND Surgery Plastic and Reconstructive Surgery
DX: K35.80 Unspecified acute appendicitis (principal); E87.6 Hypokalemia; N73.6 Female pelvic peritoneal adhesions (postinfective); I11.9 Hypertensive heart disease without heart failure; E11.9 Type 2 diabetes mellitus without complications; M19.90 Unspecified osteoarthritis, unspecified site; I49.3 Ventricular premature depolarization; N83.201 Unspecified ovarian cyst, right side; N39.0 Urinary tract infection, site not specified; K57.90 Diverticulosis of intestine, part unspecified, without perforation or abscess without bleeding; F32.A Depression, unspecified; R33.9 Retention of urine, unspecified; Z68.31 Body mass index [BMI] 31.0-31.9, adult; E66.09 Other obesity due to excess calories; Z79.82 Long term (current) use of aspirin; Z79.1 Long term (current) use of non-steroidal anti-inflammatories (NSAID); Z79.84 Long term (current) use of oral hypoglycemic drugs; Z79.899 Other long term (current) drug therapy; Z94.7 Corneal transplant status; Z98.890 Other specified postprocedural states; Z82.49 Family history of ischemic heart disease and other diseases of the circulatory system
CPT/HCPCS: 44970; S2900; 36415; 80048; 80053; 83605; 83690; 85025; 87040; 88304; 93005; 96365; 96366; 96374; 96375; 96376; 99285

== ENCOUNTER → 2022-09-18 | Outpatient (CLI) | payer MEDICARE ==
--- NOTE | 2022-09-18 17:50 | CT ---
EXAMINATION TYPE: CT abdomen pelvis w con DATE OF EXAM: 09/18/2022 COMPARISON: 09/16/2022 INDICATION: RLQ pain DLP: 1356.6 mGycm, Automated exposure control for dose reduction was used. CONTRAST: 100 mL of Isovue 300. Study performed with Oral Contrast TECHNIQUE: Axial images were obtained from above the diaphragm to the pubic rami in the axial plane a t 5 mm thick sections. Reconstructed images are reviewed on the computer in the coronal plane. FINDINGS: Limited CT sections are obtained the lung bases. The lung bases are clear. Small hiatal hernia is p resent. CT ABDOMEN: Liver: Mild fatty infiltration of liver. Spleen: Normal Pancreas: Normal Adrenal glands: The adrenal glands are normal. Gallbladder: Normal Kidneys: No masses are evident. No hydronephrosis is present. No cysts are present. Delayed images were obtained through the kidneys, which remain unremarkable. Aorta: Vascular calcification is within the aorta. Inferior vena cava: Normal. CT PELVIS: Loops of bowel within the abdomen and pelvis are normal. There are loops of bowel which are incom pletely distended or lack oral contrast limiting their evaluation. Appendix: Not visualized. There is some fluid in the pelvis near the cecum which is increased from co mparison. What appears to be a small cyst in the right adnexa measuring 1.4 cm. However, there is a p unctate air adjacent not definitely identified in association with a loop of bowel.This could be a pr ominent inflamed appendix. Some minimal inflammatory changes are through this region. Clinical manag ement is recommended. Urinary bladder: Normal. Genitourinary structures: Uterus is unremarkable. Normal. Osseous structures: No suspicious lytic or sclerotic lesions. IMPRESSIONS: 1. Some increased free fluid within the pelvis and some hypodensity inferior to the cecum could be a n inflamed dilated appendix. Clinical management for acute appendicitis is recommended. Differential diagnosis would include small right adnexal cyst. 2. Similar appearance of previous diverticulosis within the sigmoid colon. Mild diverticulitis could be considered.
== END | disposition home or self-care (01) ==
LOC: RADCTMAIN 14:14
PROVIDERS: ATTEND Internal Medicine
DX: K57.30 Diverticulosis of large intestine without perforation or abscess without bleeding (principal); N39.0 Urinary tract infection, site not specified
CPT/HCPCS: 74177; 36415; Q9967

== ENCOUNTER 2022-10-13 08:45 | Emergency (ER) | payer MEDICARE ==
[2022-10-13 08:51] VITALS: TEMP 95
[2022-10-13 09:13] VITALS: RESP 16
--- NOTE | 2022-10-13 09:22 | ED ---
Abdominal Pain HPI - General Chief Complaint: Abdominal Pain Stated Complaint: ABD PAIN Time Seen by Provider: 10/13/22 08:53 Source: patient, RN notes reviewed Mode of arrival: ambulatory Limitations: no limitations - History of Present Illness Initial Comments: 77-year-old female presents emergency Department chief complaint of abdominal pain. Patient states that she went to have bowel movement that she had a strange states she was constipated states that she has pressure in her abdomen and rectum. Patient states she feels she still constipated hemorrhoid. Patient is not that she had surgery September 19 for acute appendicitis by Dr. Akosua siegel states that her doctor come emergency from for she's having discomfort she states that she just wants a colonoscopy to ease her mind. Patient states she had a colonoscopy 10 years ago. - Related Data Home Medications Medication Instructions Recorded Confirmed Losartan Potassium [Cozaar] 100 mg PO DAILY 11/14/21 09/18/22 traMADol HCL 50 mg PO BID PRN 11/14/21 09/18/22 Aspirin 81 mg PO DAILY 09/18/22 09/18/22 Multivitamins, Thera [Multivitamin 1 tab PO DAILY 09/18/22 09/18/22 (formulary)] amLODIPine [Norvasc] 5 mg PO DAILY 09/18/22 09/18/22 hydroCHLOROthiazide [Hydrodiuril] 25 mg PO DAILY 09/18/22 09/18/22 metFORMIN HCL ER [Glucophage XR] 500 mg PO DAILY 09/18/22 09/18/22 prednisoLONE ACETATE 1% OPHTH 1 drops BOTH EYES Q48H 09/18/22 09/18/22 [Pred Forte 1%] Previous Rx's Medication Instructions Recorded Acetaminophen Tab [Tylenol Tab] 1,000 mg PO Q6HR PRN #30 tablet 09/19/22 Ibuprofen [Motrin] 600 mg PO Q8HR PRN #30 tab 09/19/22 Allergies Allergy/AdvReac Type Severity Reaction Status Date / Time No Known Allergies Allergy Verified 10/13/22 08:51 Review of Systems ROS Statement: Those systems with pertinent positive or pertinent negative responses have been documented in the HPI. ROS Other: All systems not noted in ROS Statement are negative. Past Medical History Past Medical History: Hypertension, Osteoarthritis (OA) History of Any Multi-Drug Resistant Organisms: None Reported Past Surgical History: Appendectomy Additional Past Surgical History / Comment(s): corneal transplant ana maria eyes, colonoscopy Past Anesthesia/Blood Transfusion Reactions: No Reported Reaction Past Psychological History: Depression Smoking Status: Never smoker Past Alcohol Use History: None Reported Past Drug Use History: None Reported - Past Family History Mother Family Medical History: Coronary Artery Disease (CAD) General Exam Limitations: no limitations General appearance: alert, in no apparent distress Head exam: Present: atraumatic, normocephalic, normal inspection Eye exam: Present: normal appearance, PERRL, EOMI. Absent: scleral icterus, conjunctival injection, periorbital swelling ENT exam: Present: normal exam, mucous membranes moist Neck exam: Present: normal inspection. Absent: tenderness, meningismus, lymphad enopathy Respiratory exam: Present: normal lung sounds bilaterally. Absent: respiratory distress, wheezes, rales, rhonchi, stridor Cardiovascular Exam: Present: regular rate, normal rhythm, normal heart sounds. Absent: systolic murmur, diastolic murmur, rubs, gallop, clicks GI/Abdominal exam: Present: soft, normal bowel sounds. Absent: distended, tenderness, guarding, rebound, rigid Back exam: Absent: CVA tenderness (R), CVA tenderness (L) Neurological exam: Present: alert Course Vital Signs 10/13/22 10/13/22 10/13/22 08:46 09:12 11:02 Temperature 95 F L Pulse Rate 98 80 86 Respiratory 18 16 16 Rate Blood Pressure 144/80 140/80 168/86 O2 Sat by Pulse 99 99 98 Oximetry Medical Decision Making - Medical Decision Making Was pt. sent in by a medical professional or institution (, PA, POWER PLANT OPERATOR APPRENTICE, urgent care, hospital, or [facility]...) When possible be specific @ -No Did you speak to anyone other than the patient for history (EMS, parent, family, police, friend...)? What history was obtained from this source @ -No Did you review nursing and triage notes (agree or disagree)? Why? @ -I reviewed and agree with nursing and triage notes Were old charts reviewed (outside hosp., previous admission, EMS record, old EKG, old radiological studies, urgent care reports/EKG's, [facility] records)? Report findings @ -Reviewed prior laboratory studies, surgery report Differential Diagnosis (chest pain, altered mental status, abdominal pain women, abdominal pain men, vaginal bleeding, weakness, fever, dyspnea, syncope, headache, dizziness, GI bleed, back pain, seizure, CVA, palpatations, mental health, musculoskeletal)? @ -Differential Abdominal Pain Women: Appendicitis, Cholecystitis, diverticulosis, ischemic bowel, pancreatitis, hepatitis, UTI, gastroenteritis, AAA, incarcerated hernia, bowel obstruction, constipation, inflammatory bowel, hepatitis, peptic ulcer disease, splenic infarction, perforated viscus, vulvitis, ovarian torsion, PID, kidney stone, placenta abruption, this is not meant to be an all-inclusive list EKG interpreted by me (3pts min.). @ -None X-rays interpreted by me (1pt min.). @ -X-ray shows mild stool burden CT interpreted by me (1pt min.). @ -None done U/S interpreted by me (1pt. min.). @ -None done What testing was considered but not performed or refused? (CT, X-rays, U/S, labs)? Why? @ -None What meds were considered but not given or refused? Why? @ -None Did you discuss the management of the patient with other professionals (professionals i.e. , PA, POWER PLANT OPERATOR APPRENTICE, lab, RT, psych nurse, director of social work, asphalt spreader, teacher, restoration officer, spring encaser)? Give summary @ -No Was smoking cessation discussed for >3mins.? @ -No Was critical care preformed (if so, how long)? @ -No Were there social determinants of health that impacted care today? How? (Homelessness, low income, unemployed, alcoholism, drug addiction, transportation, low edu. Level, literacy, decrease access to med. care, fci, rehab)? @ -No Was there de-escalation of care discussed even if they declined (Discuss DNR or withdrawal of care, Hospice)? DNR status @ -No What co-morbidities impacted this encounter? (DM, HTN, Smoking, COPD, CAD, Cancer, CVA, ARF, Chemo, Hep., AIDS, mental health diagnosis, sleep apnea, morb id obesity)? @ -None Was patient admitted / discharged? Hospital course, mention meds given and route, prescriptions, significant lab abnormalities, going to OR and other pertinent info. @ -[Discharge patient's laboratory studies are unremarkable. Patient is clinically constipation. Patient was given Therevac enema. Patient will follow-up with surgeon, Undiagnosed new problem with uncertain prognosis? @ -[No] Drug Therapy requiring intensive monitoring for toxicity (Heparin, Nitro, Insulin, Cardizem)? @ -[No] Were any procedures done? @ -[No] Diagnosis/symptom? @ -[Abdominal pain] Acute, or Chronic, or Acute on Chronic? @ -[Acute] Uncomplicated (without systemic symptoms) or Complicated (systemic symptoms)? @ -[Uncomplicated] Side effects of treatment? @ -[No] Exacerbation, Progression, or Severe Exacerbation? @ -[No] Poses a threat to life or bodily function? How? (Chest pain, [place], [place], pneumonia, PE, COPD, DKA, ARF, appy, cholecystitis, CVA, Diverticulitis, Homicidal, Suicidal, threat to staff... and all critical care pts) @ -[No] - Lab Data Result diagrams: 10/13/22 09:30 10/13/22 09:30 Lab Results 10/13/22 10/13/22 10/13/22 Range/Units 09:30 09:30 09:30 WBC 6.4 (3.8-10.6) k/uL RBC 4.28 (3.80-5.40) m/uL Hgb 12.7 (11.4-16.0) gm/dL Hct 38.6 (34.0-46.0) % MCV 90.3 (80.0-100.0) fL MCH 29.8 (25.0-35.0) pg MCHC 33.0 (31.0-37.0) g/dL RDW 14.9 (11.5-15.5) % Plt Count 236 (150-450) k/uL MPV 8.3 Neutrophils % 52 % Lymphocytes % 36 % Monocytes % 7 % Eosinophils % 2 % Basophils % 0 % Neutrophils # 3.3 (1.3-7.7) k/uL Lymphocytes # 2.3 (1.0-4.8) k/uL Monocytes # 0.5 (0-1.0) k/uL Eosinophils # 0.2 (0-0.7) k/uL Basophils # 0.0 (0-0.2) k/uL Sodium 139 (137-145) mmol/L Potassium 3.4 L (3.5-5.1) mmol/L Chloride 102 (98-107) mmol/L Carbon Dioxide 24 (22-30) mmol/L Anion Gap 13 mmol/L BUN 15 (7-17) mg/dL Creatinine 0.66 (0.52-1.04) mg/dL Est GFR (CKD-EPI)AfAm >90 (>60 ml/min/1.73 sqM) Est GFR (CKD-EPI)NonAf 87 (>60 ml/min/1.73 sqM) Glucose 133 H (74-99) mg/dL Calcium 9.4 (8.4-10.2) mg/dL Total Bilirubin 0.4 (0.2-1.3) mg/dL AST 24 (14-36) U/L ALT 25 (4-34) U/L Alkaline Phosphatase 53 (38-126) U/L Total Protein 8.3 H (6.3-8.2) g/dL Albumin 4.0 (3.5-5.0) g/dL Lipase 59 (23-300) U/L Urine Color Light Yellow Urine Appearance Clear (Clear) Urine pH 6.5 (5.0-8.0) Ur Specific [place] 1.016 (1.001-1.035) Urine Protein Negative (Negative) Urine Glucose (UA) Negative (Negative) Urine Ketones Negative (Negative) Urine Blood Trace H (Negative) Urine Nitrite Negative (Negative) Urine Bilirubin Negative (Negative) Urine Urobilinogen <2.0 (<2.0) mg/dL Ur Leukocyte Esterase Large H (Negative) Urine RBC 7 H (0-5) /hpf Urine WBC 6 H (0-5) /hpf Ur Squamous Epith Cells 1 (0-4) /hpf Urine Mucus Rare H (None) /hpf Disposition Clinical Impression: Abdominal pain Disposition: HOME SELF-CARE Condition: Stable Instructions (If sedation given, give patient instructions): Abdominal Pain (ED) Additional Instructions: Please return to the Emergency Department if symptoms worsen or any other concerns. Is patient prescribed a controlled substance at d/c from ED?: No Referrals: Miguel Simental MD [Primary Care Provider] - 1-2 days Time of Disposition: 10:37
[2022-10-13 09:42] LABS: Basophils % (A) 0 %; Eosinophils # (A) 0.2 k/uL (0-0.7); Eosinophils % (A) 2 %; HCT 38.6 % (34.0-46.0); HGB 12.7 gm/dL (11.4-16.0); Lymphocytes # (A) 2.3 k/uL (1.0-4.8); Lymphocytes % (A) 36 %; MCH 29.8 pg (25.0-35.0); MCV 90.3 fL (80.0-100.0); Mean Platelet Volume 8.3; Monocytes # (A) 0.5 k/uL (0-1.0); Monocytes % (A) 7 %; Neutrophils # (A) 3.3 k/uL (1.3-7.7); Neutrophils % (A) 52 %; Platelet Count 236 k/uL (150-450); RBC 4.28 m/uL (3.80-5.40); RDW 14.9 % (11.5-15.5); WBC 6.4 k/uL (3.8-10.6)
--- NOTE | 2022-10-13 09:45 | XR ---
EXAMINATION TYPE: XR KUB DATE OF EXAM: 10/13/2022 9:41 AM INDICATION: Patient age:Female; 77 years old; Reason for study: abdominal pain; COMPARISON: 09/18/2022 CT. TECHNIQUE: One radiographic view of the abdomen was obtained. FINDINGS: The bowel gas pattern is nonspecific without dilated loops of small or large bowel. There i s no evidence for organomegaly or pneumoperitoneum. The osseous structures are intact. No abnormal calcifications are present. Fecal material and gas are demonstrated throughout the colon and rectum. IMPRESSION: Nonspecific bowel gas pattern without radiographic evidence for acute process.
[2022-10-13 09:47] LABS: Appearance,Urine Clear (Clear); Bilirubin,Urine Negative (Negative); Blood,Urine Trace (Negative); Color,Urine Light Yellow; Glucose,Urine (UA) Negative (Negative); Ketones,Urine Negative (Negative); Leukocyte Esterase,Urine Large (Negative); Mucus,Urine Rare /hpf; Nitrite,Urine Negative (Negative); PH, Urine 6.5 (5.0-8.0); Protein,Urine Negative (Negative); RBC,Urine 7 /hpf (0-5); Specific Gravity,Urine 1.016 (1.001-1.035); Squamous Epithelial Cell,Urine 1 /hpf (0-4); Urobilinogen,Urine <2.0 mg/dL (<2.0); WBC,Urine 6 /hpf (0-5)
[2022-10-13 10:01] LABS: ALT 25 U/L (4-34); AST 24 U/L (14-36); African American GFR (CKD) >90 (>60 ml/min/1.73 sqM); Alkaline Phosphatase 53 U/L (38-126); Anion Gap 13 mmol/L; Blood Urea Nitrogen 15 mg/dL (7-17); Calcium 9.4 mg/dL (8.4-10.2); Carbon Dioxide 24 mmol/L (22-30); Chloride 102 mmol/L (98-107); Glucose 133 mg/dL (74-99); Lipase 59 U/L (23-300); Non-African American GFR(CKD) 87 (>60 ml/min/1.73 sqM); Potassium 3.4 mmol/L (3.5-5.1); Sodium 139 mmol/L (137-145); Total Bilirubin 0.4 mg/dL (0.2-1.3); Total Protein 8.3 g/dL (6.3-8.2)
[2022-10-13] MEDS ORDERED: DOCUSATE 283 MG/5 ML ENEMA RECTAL STA ×2 (10:36→10:37)
[2022-10-13 11:03] VITALS: BP 168/86; PULSE 86
== END 2022-10-13 11:03 | disposition home or self-care (01) ==
LOC: EC 08:45
DX: R10.9 Unspecified abdominal pain (principal); I10 Essential (primary) hypertension; M19.90 Unspecified osteoarthritis, unspecified site; F32.A Depression, unspecified; Z79.1 Long term (current) use of non-steroidal anti-inflammatories (NSAID); Z79.899 Other long term (current) drug therapy
CPT/HCPCS: 36415; 74018; 80053; 81001; 83690; 85025; 87086; 99284

== ENCOUNTER → 2023-07-23 | Outpatient (CLI) | payer MEDICARE ==
--- NOTE | 2023-07-29 13:47 | CT ---
EXAMINATION TYPE: CT right knee - BRIANNA Protocol CT DLP: 857 mGycm, Automated exposure control for dose reduction was used. DATE OF EXAM: 07/23/2023 11:12 AM COMPARISON: . Extremity radiograph same day. CLINICAL INDICATION:Female, 77 years old with history of M25.561 PAIN IN RIGHT KNEE; PH[facility], RT knee cristobal n BRIANNA protocol TECHNIQUE: Axial images were obtained of the CT right knee - BRIANNA Protocol, Additional coronal and sa gittal reformatted images and soft tissue and bone window were obtained for review. 3-D reconstructio n was created on a separate workstation. Contrast used: mL of , (None if empty) Oral contrast used: (None if empty) FINDINGS: There is no evidence of fracture, subluxation, or dislocation. No significant soft tissue swelling or joint effusion is identified. No focal muscular atrophy or edema is identified. No radiop aque foreign body identified. Artificial right hip. Tricompartmental periarticular osteophytes of the right knee. Patellofemoral cartilage loss lateral p atellofemoral joint No detected right ankle osteoarthritis. IMPRESSION: No evidence of fracture.
== END | disposition home or self-care (01) ==
LOC: RADCTMAIN 10:27
PROVIDERS: ATTEND Orthopaedic Surgery
DX: Z01.818 Encounter for other preprocedural examination (principal); M17.0 Bilateral primary osteoarthritis of knee; M25.561 Pain in right knee; M25.562 Pain in left knee

== ENCOUNTER → 2023-07-23 | Outpatient (CLI) | payer MEDICARE ==
[2023-07-23 10:43] LABS: Partial Thromboplastin Time 22.5 sec (22.0-30.0); Prothrombin Time 10.7 sec (10.0-12.5)
[2023-07-23 16:56] LABS: HCT 39.9 % (37.2-46.3); HGB 13.2 g/dL (12.0-15.0); MCHC 33.1 g/dL (32.0-37.0); MCV 90.7 FL (80.0-97.0); Mean Platelet Volume 11.1 FL (9.5-12.2); NRBC Per 100 WBC 0 X 10*3/uL (0.00-0.01); Platelet Count 230 X 10*3/uL (140-440); RDW 14.6 % (11.5-14.5); WBC 7.77 X 10*3/uL (4.50-10.00)
[2023-07-23 17:19] LABS: Blood Urea Nitrogen 17.1 mg/dL (9.0-27.0); Chloride 101 mmol/L (96-109); Glucose 119 mg/dL (70-110); Potassium 3.5 mmol/L (3.5-5.5); Sodium 140 mmol/L (135-145)
[2023-07-23 17:20] LABS: ALT 20 U/L (8-44); AST 17 U/L (13-35); Albumin 4.2 g/dL (3.8-4.9); Albumin/Globulin Ratio 1.24 Ratio (1.60-3.17); Alkaline Phosphatase 43 U/L (41-126); Calcium 9.6 mg/dL (8.7-10.3); Carbon Dioxide 24.9 mmol/L (21.6-31.8); Globulin 3.4 g/dL (1.6-3.3); Total Bilirubin 0.4 mg/dL (0.3-1.2); Total Protein 7.6 g/dL (6.2-8.2)
== END | disposition home or self-care (01) ==
LOC: LABPAT 09:53
PROVIDERS: ATTEND Orthopaedic Surgery
DX: Z01.818 Encounter for other preprocedural examination (principal); Z22.322 Carrier or suspected carrier of Methicillin resistant Staphylococcus aureus; M17.11 Unilateral primary osteoarthritis, right knee; R94.31 Abnormal electrocardiogram [ECG] [EKG]
CPT/HCPCS: 80053; 83036; 85027; 85610; 85730; 87070; 93005

== ENCOUNTER 2023-08-20 05:55 | Day surgery (SDC) | payer MEDICARE ==
[2023-07-27 14:09] VITALS: BMI 30.3
[2023-08-20] MEDS ORDERED: HYDROmorphone 0.5 MG/0.5 ML SYRINGE IVP PRN (05:56)
[2023-08-20] MEDS ORDERED: LIDOCAINE 1% (10MG/ML) FOR IV START INTRADERMA PRN (05:56)
[2023-08-20] MEDS ORDERED: TRANEXAMIC 1,000 MG/100ML-NACL 1,000 MG in SALINE 1 100ML.BAG IV PRN (06:00)
[2023-08-20] MEDS ORDERED: ONDANSETRON 4 MG/2 ML VIAL IVP PRN ×2 (06:00→09:37)
[2023-08-20] MEDS ORDERED: KETOROLAC 15 MG/ML 1 ML VIAL IVP PRN (06:00)
[2023-08-20] MEDS ORDERED: TRANEXAMIC 1,000 MG/100ML-NACL 1,000 MG in SALINE 1 100ML.BAG IVPB PRN (06:00)
[2023-08-20] MEDS: oxyCODONE ER 10 MG TAB.ER.12H PO PRN (06:46)
[2023-08-20] MEDS: DOCUSATE 100 MG CAP PO PRN (06:46)
[2023-08-20] MEDS: ACETAMINOPHEN TAB 500 MG TAB PO PRN (06:47)
[2023-08-20] MEDS: IV FLUID CONTINUATION 1,000 ML IV ONE (06:55)
[2023-08-20] MEDS: DEXAMETHASONE SOD PHOSPHATE 10 MG/ML 1 ML VIAL IV PRN (06:59)
[2023-08-20] MEDS: FAMOTIDINE 20 MG/2 ML VIAL IVP PRN (06:59)
[2023-08-20] MEDS: ONDANSETRON 4 MG/2 ML VIAL IVP ONE (06:59)
[2023-08-20 07:02] LABS: Glucose,Whole Blood 119 mg/dL (70-110)
--- NOTE | 2023-08-20 07:18 | P.ANPRN ---
Procedure Note - Anesthesia - Nerve Block Performed Right Adductor Canal Single Time Out Performed: Yes ([id number]) Date of Procedure: 08/20/23 Procedure Start Time: : Procedure Stop Time: :12 Location of Patient: PreOp Indication: Acute Post-Operative Pain, Requested by Surgeon Sedation Type: Sedate with meaningful contact maintained Preparation: Sterile Prep, Sterile Dressing Position: Supine Catheter: None Needle Types: Pajunk Needle Gauge: 21 Ultrasound used to visualize needle placement: Yes Ultrasound used to observe medication spread: Yes Injectate: 0.5% Ropivacaine (see comment for volume) (20 ml) Narrative: one attempt Blood Aspirated: No Pain Paresthesia on Injection Noted: No Resistance on Injection: Normal Image Stored and Saved: Yes Events: Uneventful and Well Tolerated
--- NOTE | 2023-08-20 07:20 | P.ANPRN ---
Procedure Note - Anesthesia - Nerve Block Performed Right iPack Single Time Out Performed: Yes ([id number]) Date of Procedure: 08/20/23 Procedure Start Time: : Procedure Stop Time: :12 Location of Patient: PreOp Indication: Acute Post-Operative Pain, Requested by Surgeon Sedation Type: Sedate with meaningful contact maintained Preparation: Sterile Prep, Sterile Dressing Position: Supine Catheter: None Needle Types: Pajunk Needle Gauge: 21 Ultrasound used to visualize needle placement: Yes Ultrasound used to observe medication spread: Yes Injectate: 0.5% Ropivacaine (see comment for volume) (20 mL of block solution ML of 0.5% ropivacaine mixed with 10 ML of preservative-free normal saline) Blood Aspirated: No Pain Paresthesia on Injection Noted: No Resistance on Injection: Normal Image Stored and Saved: Yes Events: Uneventful and Well Tolerated
[2023-08-20] MEDS: MIDAZOLAM 2 MG/2 ML VIAL IV PRN (07:22)
[2023-08-20] MEDS: LACTATED RINGERS 1,000 ML IV SCH (07:30)
[2023-08-20] MEDS: ROPIVACAINE/EPI/CLONIDINE/KET 50 ML SYRINGE MISCELLANE PRN (08:06)
[2023-08-20] MEDS: LACTATED RINGERS 1,000 ML IV ONE (09:17)
--- NOTE | 2023-08-20 09:29 | P.OP ---
Date of Procedure: 08/20/23 Preoperative Diagnosis: Right knee osteoarthritis Postoperative Diagnosis: Same Procedure(s) Performed: 1. Right total knee arthroplasty 2. Computer assisted musculoskeletal navigation using CT/MRI images Implants: 1. [place] CR/PS Femur Size #4 2. [place] [employer] [place] Tibial Base Size #4 3. [employer] CS poly Size #4, 9-mm 4. [place] [employer] all poly patella, Size #29 Anesthesia: NOHEMY, regional Surgeon: Marcelo Eldridge Industrial Machine Assembler #1: Logan Crouch Estimated Blood Loss (ml): 100 IV fluids (ml): 1,000 Pathology: none sent Condition: stable Disposition: PACU Indications for Procedure: I met with the patient preoperatively in the office setting and discussed treatment of their symptomatic knee arthritis. They failed a long course of nonsurgical treatment and elected to proceed with an elective total knee replacement. I discussed the potential risks and complications at length and gave them ample time to ask questions. Risks discussed included: risks from an esthesia, superficial site surgical infection, acute and/or chronic periprosthetic joint infection, delayed wound healing, drainage, wound necrosis, instability, stiffness, stiffness requiring manipulation and/or revision surgery, damage to local blood vessels or nerves, aseptic loosening of the implants, extensor mechanism issues including disruption, patellar maltracking, avascular necrosis etc., continued or worsened knee pain, generalized dissatisfaction with surgical outcome, need for revision surgery, an inability to regain preinjury level of function, DVT, PE, other medical complications, and possibly loss of life or limb. The patient voiced their understanding that while these are the most common complications other less common complications are possible. They provided both their verbal and written consent to go forward with surgery. Operative Findings: Severe tri-compartmental osteoarthritis Description of Procedure: The patient was identified in preoperative holding and the correct operative extremity was verified and marked with a marker. I reviewed the consent form with the patient at length. All of their questions were answered. The patient was given a block by anesthesia. They were then brought back to the operating room. They were transferred onto the operating room table where a general anesthetic, preoperative antibiotics, and tranexamic acid were administered by anesthesia. A tourniquet was applied to the proximal aspect of the operative extremity. The contralateral extremity was padded under the heel and secured to the operating room table with a nonsterile blue towel and tape. The ipsilateral arm was carefully draped across the patient's chest and secured with a pillow and foam. A post was applied over the lateral aspect of the ipsilateral thigh and a bolster was placed under the ipsilateral foot. I verified that the operative extremity was stable and the knee was flexed to 90. The operative extremity was then placed in a leg wong, nonsterile drapes were applied, and the extremity was prepped and draped sterilely in the standard sterile fashion. Prior to starting surgery timeout was performed identifying the correct patient, operative extremity, and procedure. The leg was then elevated, exsanguinated with an Esmarch bandage, and the tourniquet was inflated. An anterior midline incision was made sharply with a scalpel. Once I had dissected deep to the superficial fascial layer medial and lateral flaps were elevated. A medial parapatellar arthrotomy was created. Upon opening the knee joint there were diffuse arthritic changes in all 3 compartments. The anterior horn of the medial meniscus were sharply released and a medial release was performed around the posterior medial corner of the knee to facilitate retractor placement. The fat pad was excised with electrocautery. The patella was found to be severely arthritic and a provisional cut was made with a sagittal saw to facilitate mobilization of the extensor mechanism during the procedure. Remnants of the ACL and PCL were then excised from the notch. 4 mm pins were then placed within the incision in the medial distal femur and proximal tibia. Arrays were applied to the pins and I verified they were completely tightened. The knee was then registered with the [employer] robot and manipulations in implant position were made to balance the knee and opitmize implant position. Using the Grzegorz robotic saw all cuts were made in accordance with our plan. After all bony fragments had been removed the cuts were verified with the planar probe. The tibia was then subluxed forward and sized. The knee was brought into flexion and a lamina oceanographer geological was placed to allow removal of the meniscal remnants both medially and laterally as well as posterior osteophytes. Local anesthetic was then infiltrated around the joint capsule. Trial implants were then placed within the knee. Range of motion and collateral ligament tension was then evaluated. Adjustments in implant size and position were then made accordingly. Once the knee was felt to be appropriately balanced the Grzegorz pins were removed. The patella was then recut, sized, and punched. A trial patellar button was then placed. With the trial components in place, the patella tracked midline. The femur was then drilled and the trial component removed. The trial tibial component was then appropriately rotated, pinned, and prepared for the keel. All trial components were then removed from the knee. The knee was thoroughly irrigated with pulsatile lavage. Cement was prepared via vacuum mixing in a bowl on the back table. I then hand pressurized cement into the femur and tibia and placed the implants beginning with the tibial base tray and poly liner, femoral component, and finally the patellar button. All extruded cement was removed including from the pin sites. Once the cement had hardened the knee was evaluated one final time with the final polyethylene liner in place. The knee had full extension and flexion and felt stable to varus and valgus stress throughout the arc of motion. The tourniquet was released and with the tourniquet down the patella tracked midline. All bleeders were controlled with electrocautery. The knee was then soaked for 3 minutes with a dilute Betadine soak. The knee was thoroughly irrigated using 3 L of sterile saline and pulsatile lavage. The extensor mechanism was then reapproximated using pop off Vicryl sutures followed by a running barbed suture. The knee was then closed in layers with a 0 strata fix for the deep fascial layer, 2-0 strata fix for the superficial subcutaneous layer and Monocryl and Steri-Strips for the skin. A sterile dressing was applied. I verified that all instrument, sponge, and sharp counts were correct. The patient was then transferred off the operating room table, extubated, and brought to recovery having tolerated the procedure well. Logan Crouch PA-C was required as a skilled assistant professor of psychology for patient positioning, draping, exposure, retraction, closure of wound and application of dressing PLAN: The patient can weight-bear as tolerated on the operative extremity. DVT prophylaxis with aspirin 81 mg twice a day based on preoperative risk stratification. Internal medicine for perioperative medical management. 2 doses of post-operative antibiotics. Physical therapy for gait training. Follow-up in the office in 2 weeks for wound check and x-rays of the knee including an AP and lateral.
[2023-08-20] MEDS ORDERED: NALOXONE 0.4 MG/ML 1 ML VIAL IV PRN (09:37)
[2023-08-20] MEDS ORDERED: hydrOXYzine pamoate 25 MG CAP PO PRN (09:37)
[2023-08-20] MEDS ORDERED: HYDROcodone/APAP 5-325MG 1 EACH TAB PO PRN (09:37)
--- NOTE | 2023-08-20 12:12 | XR ---
EXAMINATION TYPE: XR knee limited RT DATE OF EXAM: 08/20/2023 11:07 AM CLINICAL INDICATION:Female, 77 years old with history of Evaluation for Postop abnormality and alignm ent; [facility] COMPARISON: None. TECHNIQUE: XR knee limited RT; examined in Frontal, lateral and oblique projections. FINDINGS: Status post total knee arthroplasty changes with hardware in appropriate alignment and in tact. No evidence of fracture. Subcutaneous lucencies and lucencies within the joint consistent with surgical changes. IMPRESSION: Status post total knee arthroplasty changes with hardware intact and appropriate alignment. No fractu res identified.
[2023-08-20] MEDS: DEXAMETHASONE SOD PHOSPHATE 4 MG/ML 1 ML VIAL IV ONE (14:53)
[2023-08-20] MEDS: SODIUM CHLORIDE 0.9% 1,000 ML IV SCH (14:54)
[2023-08-20] MEDS: HYDROcodone/APAP 10-325MG 1 EACH TAB PO PRN (16:08)
[2023-08-20] MEDS: prednisoLONE ACETATE 1% OPHTH DROPS 5 ML BTL BOTH EYES SCH (16:39)
[2023-08-20] MEDS: BENZOCAINE/MENTHOL LOZENG 1 EACH LOZENGE MUCOUS MEM PRN (16:56)
[2023-08-20] MEDS ORDERED: DEXTROSE 50% SYRINGE 50 ML IVP PRN ×2 (17:06)
[2023-08-20 17:20] LABS: Glucose,Whole Blood 178 mg/dL (70-110)
--- NOTE | 2023-08-20 18:07 | P.CONS ---
History of Present Illness - Reason for Consult Consult date: 08/20/23 Medical Management Requesting physician: Marcelo Eldridge - History of Present Illness History of Presenting Illness: Patient is a very pleasant 77-year-old female with a past medical history of hypertension, type II [id number]-pdmavaroj diabetes mellitus, bilateral coroneal transplant, and osteoarthritis. She is currently admitted under orthopedic surgery team status post elective right total knee arthroplasty secondary to severe osteoarthritis of right knee. We were consulted for medical management throughout hospitalization. Patient seen and fully evaluated at bedside in room 485. Patient reports she is doing well postoperatively. She has ambulated to the restroom twice and has reported no difficulties with urination. She reports postoperative pain is currently controlled and states currently only pain with movement or when ambulating. She denies having any postoperative nausea or vomiting and is tolerating oral intake. Patient denies having any headache, lightheadedness, dizziness, chest pain, palpitations, shortness of breath, or any other complaints at this time. Review of systems: Pertinent positives and negatives as discussed in HPI, a complete review of systems was performed and all other systems are negative. Physical exam: Vital signs reviewed and stable. General: Nontoxic, no distress and appears stated age. Derm: Skin warm and dry, normal coloration for ethnicity. Head: Atraumatic, normocephalic and symmetric. Eyes: EOMs intact, no lid lag, and anicteric sclera Mouth: no lip lesions, mucus membranes moist Cardiovascular: regular rate and rhythm with normal S1S2, no murmur, positive posterior tibial pulses bilaterally, and cap refill < 2 seconds. Lungs: Respirations even, regular, and unlabored on room air. Lungs CTA bilaterally, no rhonchi, no rales, no wheezing, and no accessory muscle usage. Abdominal: soft, nontender to palpation, no guarding, no appreciable organomegaly Ext: No gross muscle atrophy, no edema, no contractures. Postsurgical dressing/Joseph wrap in place to right lower extremity/knee. Movement and sensation intact. Neuro: Speech clear, face symmetrical and CN II-XII grossly intact with no noted focal neuro deficits Psych: Alert and oriented to person, place, time, and situation. Appropriate and pleasant affect. Assessment and Plan of Care: Status post right total knee arthroplasty Management per primary admitting orthopedic surgery team including DVT prophylaxis, pain management, wound/dressing management, weightbearing, and PT/OT. Currently on DVT prophylaxis with aspirin 81 mg twice daily. Type 2 diabetes mellitus with hyperglycemia. Patient to continue Rybelsus 7 mg daily and was placed on glycemic protocol with NovoLog sliding scale. Hemoglobin A1c to be obtained. Hypertension Patient to continue daily medication regimen with amlodipine 5 mg daily, hydrochlorothiazide 25 mg daily, and losartan 100 mg daily. History of bilateral corneal transplant Patient to continue prednisolone ophthalmology drops as directed. Data and imaging reviewed: -Reviewed operative report . -Preoperative EKG completed 07/23/2023 showing normal sinus rhythm 77 bpm with T wave inversion in leads V3 with no significant T wave or ST abnormalities upon personal review and interpretation. -Preoperative labs reviewed. CBC showing WBC count 7.77, hemoglobin 13.2, platelet count of 230. BMP showing sodium 140, potassium 3.5, BUN of 17.1, creatinine 0.9, GFR of 67. Liver profile was unremarkable. Thank you for allowing us to participate in the care of this pleasant patient. Do not hesitate to contact us with questions. Someone can be reached from the [facility] hospitalist group all hours of the day at [phone] or via [employer]. Patient was seen independently by Nurse Practitioner. This document was prepared using [employer] dictation software. Please allow for errors in desizing pad operator while rare they do occur. King Castillo NP rendered care for this patient independently, reviewed the findings and plan as documented in the note above. I did not physically speak with or examine the patient on this date. Past Medical History Past Medical History: Hypertension, Osteoarthritis (OA) Additional Past Medical History / Comment(s): steroid injection April History of Any Multi-Drug Resistant Organisms: None Reported Past Surgical History: Appendectomy Additional Past Surgical History / Comment(s): corneal transplant ana maria eyes, colonoscopy Past Anesthesia/Blood Transfusion Reactions: No Reported Reaction Additional Past Anesthesia/Blood Transfusion Reaction / Comm: no hx blood transfusion Smoking Status: Never smoker - Past Family History Mother Family Medical History: Coronary Artery Disease (CAD) Medications and Allergies Home Medications Medication Instructions Recorded Confirmed Type Losartan Potassium [Cozaar] 100 mg PO QAM 11/14/21 08/20/23 History Aspirin 81 mg PO DAILY 09/18/22 08/20/23 History amLODIPine [Norvasc] 5 mg PO QAM 09/18/22 08/20/23 History hydroCHLOROthiazide [Hydrodiuril] 25 mg PO DAILY 09/18/22 08/20/23 History prednisoLONE ACETATE 1% OPHTH 1 drops BOTH EYES Q48H 09/18/22 08/20/23 History [Pred Forte 1%] Acetaminophen Tab [Tylenol Tab] 1,000 mg PO Q6HR PRN #30 tablet 09/19/22 08/20/23 Rx Ibuprofen [Motrin] 400 mg PO Q8HR PRN 07/27/23 08/20/23 History Meloxicam [Mobic] 15 mg PO DAILY 07/27/23 08/20/23 History Semaglutide [Rybelsus] 7 mg PO DAILY 07/27/23 08/20/23 History Diclofenac Sodium Gel [Voltaren 1% 2 gm TOPICAL QID PRN 08/10/23 08/20/23 History Gel] Aspirin 81 mg PO BID #60 tab 08/20/23 Rx Diclofenac Sodium [Voltaren] 75 mg PO BID #60 tab 08/20/23 Rx Docusate [Colace] 100 mg PO BID #60 capsule 08/20/23 Rx HYDROcodone/APAP 5-325MG [[place] 1 - 2 tab PO Q6HR PRN #32 tab 08/20/23 Rx 5-325] Omeprazole 40 mg PO DAILY #30 cap 08/20/23 Rx Allergies Allergy/AdvReac Type Severity Reaction Status Date / Time No Known Allergies Allergy Verified 08/20/23 06:24 Physical Exam Vitals: Vital Signs Temp Pulse Resp BP Pulse Ox 08/20/23 13:17 97.5 F L 84 16 105/62 92 L 08/20/23 12:32 97.7 F 85 17 104/64 95 08/20/23 11:39 84 12 119/59 96 08/20/23 11:24 77 12 128/62 96 08/20/23 11:09 82 12 132/68 94 L 08/20/23 10:54 84 16 150/66 95 08/20/23 10:39 81 16 138/65 95 08/20/23 10:24 84 16 145/69 96 08/20/23 10:09 83 16 143/68 99 08/20/23 09:54 87 16 157/71 97 08/20/23 07:11 79 16 135/70 97 08/20/23 06:20 98.1 F 87 18 150/81 95 Intake and Output 08/20/23 08/20/23 08/20/23 06:59 14:59 22:59 Intake Total 200 950 Output Total 200 Balance 200 750 Intake: IV 200 950 Output: Estimated Blood Loss 200 Other: # Voids 1 Weight 87.1 kg Results CBC & Chem 7: 08/21/23 06:49 08/21/23 06:49 Labs: Abnormal Lab Results - Last 24 Hours (Table) 08/20/23 Range/Units 06:57 POC Glucose (mg/dL) 119 H (70-110) mg/dL
[2023-08-20] MEDS: ASPIRIN 81 MG PO SCH (20:47)
[2023-08-21 06:00] LABS: Glucose,Whole Blood 124 mg/dL (70-110)
[2023-08-21 07:20] VITALS: BP 123/72; PULSE 83; RESP 17; TEMP 98.5
[2023-08-21] MEDS: LOSARTAN 50 MG TAB PO SCH (08:06)
[2023-08-21] MEDS: hydroCHLOROthiazide 25 MG TAB PO SCH (08:06)
[2023-08-21] MEDS: amLODIPine 5 MG TAB PO SCH (08:06)
--- NOTE | 2023-08-21 09:08 | P.DS ---
Providers Date of admission: 08/20/2023 Attending physician: Marcelo Eldridge Consults: 08/20/23 12:24 Consult Physician Routine Consulting Provider: Roman Garza Consult Reason/Comments: medical managment. Do you want consulting provider notified?: Yes Primary care physician: [facility] Course: The patient is a very pleasant 77-year-old female who was admitted under my care yesterday and underwent a complicated right total knee replacement. Following surgery she was transferred to the orthopedic floor. She received 2 doses of postoperative antibiotics. She was transitioned from IV to oral pain medication. She was started on aspirin for DVT prophylaxis. Internal medicine saw the patient for perioperative medical management. The patient was seen on postoperative day #1 and is doing well. The dressing in her right knee was intact. There is mild swelling. Her thigh and calf are soft. She is able to actively plantarflex response her ankle and her toes. She worked with physical therapy and did well. She was ultimately cleared for discharge home. Plan - Discharge Summary Discharge Rx Participant: No New Discharge Prescriptions: New Diclofenac Sodium [Voltaren] 75 mg PO BID #60 tab HYDROcodone/APAP 5-325MG [[place] 5-325] 1 - 2 tab PO Q6HR PRN #32 tab PRN Reason: Pain Omeprazole 40 mg PO DAILY #30 cap Aspirin 81 mg PO BID #60 tab Docusate [Colace] 100 mg PO BID #60 capsule No Action prednisoLONE ACETATE 1% OPHTH [Pred Forte 1%] 1 drops BOTH EYES Q48H hydroCHLOROthiazide [Hydrodiuril] 25 mg PO DAILY Acetaminophen Tab [Tylenol Tab] 1,000 mg PO Q6HR PRN #30 tablet PRN Reason: Pain Meloxicam [Mobic] 15 mg PO DAILY Ibuprofen [Motrin] 400 mg PO Q8HR PRN PRN Reason: Pain Semaglutide [Rybelsus] 7 mg PO DAILY Diclofenac Sodium Gel [Voltaren 1% Gel] 2 gm TOPICAL QID PRN PRN Reason: Pain Losartan Potassium [Cozaar] 100 mg PO QAM amLODIPine [Norvasc] 5 mg PO QAM Aspirin 81 mg PO DAILY Discharge Medication List Losartan Potassium [Cozaar] 100 mg PO QAM 11/14/21 [History] Aspirin 81 mg PO DAILY 08/04/23 [History] amLODIPine [Norvasc] 5 mg PO QAM 09/18/22 [History] hydroCHLOROthiazide [Hydrodiuril] 25 mg PO DAILY 09/18/22 [History] prednisoLONE ACETATE 1% OPHTH [Pred Forte 1%] 1 drops BOTH EYES Q48H 09/18/22 [History] Acetaminophen Tab [Tylenol Tab] 1,000 mg PO Q6HR PRN #30 tablet 09/19/22 [Rx] Ibuprofen [Motrin] 400 mg PO Q8HR PRN 07/27/23 [History] Meloxicam [Mobic] 15 mg PO DAILY 07/27/23 [History] Semaglutide [Rybelsus] 7 mg PO DAILY 07/27/23 [History] Diclofenac Sodium Gel [Voltaren 1% Gel] 2 gm TOPICAL QID PRN 08/10/23 [History] Aspirin 81 mg PO BID #60 tab 08/20/23 [Rx] Diclofenac Sodium [Voltaren] 75 mg PO BID #60 tab 08/20/23 [Rx] Docusate [Colace] 100 mg PO BID #60 capsule 08/20/23 [Rx] HYDROcodone/APAP 5-325MG [[place] 5-325] 1 - 2 tab PO Q6HR PRN #32 tab 08/20/23 [Rx] Omeprazole 40 mg PO DAILY #30 cap 08/20/23 [Rx] Follow up Appointment(s)/Referral(s): [facility], [NON-STAFF] - As Needed Marcelo Eldridge MD [Medical Doctor] - 2 Weeks Activity/Diet/Wound Care/Special Instructions: 1. Weight-bear as tolerated on your operative extremity unless instructed otherwise. Use a walker or other assistive device to ambulate. 2. Leave surgical dressing in place. If your dressing becomes saturated with blood, there is drainage, or the dressing becomes loose please contact the offi ce. 3. It is okay to shower with your surgical dressing, but do not submerge in water (no hot tubs, bath's, swimming etc.) 4. Make sure to take her blood clot prevention medication as prescribed (a spirin, Eliquis, Xarelto, and Plavix are commonly prescribed medications for blood clot prevention) 5. While taking [place] or Percocet for pain make sure you're taking a stool softener (Colace) and drink lots of water. 6. Keep all follow-up appointments as scheduled. You will usually be seen in 1-2 weeks following surgery. 7. Please contact the office with any questions or concerns [phone] Discharge Disposition: HOME WITH HOME HEALTH SERVICES
[2023-08-21 09:22] LABS: Basophils % (A) 0.1 %; Eosinophils % (A) 0 %; HCT 32.8 % (37.2-46.3); HGB 10.8 g/dL (12.0-15.0); Lymphocytes # (A) 2.06 X 10*3/uL (0.90-5.00); Lymphocytes % (A) 14.7 %; MCH 30.2 pg (27.0-32.0); MCHC 32.9 g/dL (32.0-37.0); MCV 91.6 FL (80.0-97.0); Mean Platelet Volume 11.3 FL (9.5-12.2); Monocytes # (A) 1.05 X 10*3/uL (0.20-1.00); Monocytes % (A) 7.5 %; NRBC Per 100 WBC 0 X 10*3/uL (0.00-0.01); Neutrophils # (A) 10.86 X 10*3/uL (1.80-7.70); Neutrophils % (A) 77.3 %; Platelet Count 194 X 10*3/uL (140-440); RBC 3.58 X 10*6/uL (4.10-5.20); RDW 14.4 % (11.5-14.5); WBC 14.05 X 10*3/uL (4.50-10.00)
[2023-08-21 09:23] LABS: Basophils # (A) 0.02 X 10*3/uL (0.00-0.10); Eosinophils # (A) 0 X 10*3/uL (0.04-0.35)
[2023-08-21 09:31] LABS: Calcium 8.4 mg/dL (8.7-10.3); Carbon Dioxide 24.6 mmol/L (21.6-31.8); Chloride 102 mmol/L (96-109); Glucose 139 mg/dL (70-110); Magnesium 1.8 mg/dL (1.5-2.4); Potassium 3.4 mmol/L (3.5-5.5); Sodium 139 mmol/L (135-145)
[2023-08-21] MEDS: NON FORMULARY DRUG (Semaglutide [Rybelsus] 7 MG Tablet) PO SCH (10:22)
[2023-08-21 11:54] LABS: Glucose,Whole Blood 140 mg/dL (70-110)
[2023-08-21] MEDS: HYDROmorphone 0.5 MG/0.5 ML SYRINGE IVP PRN (12:23)
[2023-08-21] MEDS: POTASSIUM CHLORIDE ER 10 MEQ TAB.ER.PRT PO STA (13:10)
--- NOTE | 2023-08-21 17:16 | P.PN ---
Subjective Progress Note Date: 08/21/23 Hospital Course: Patient is a very pleasant 77-year-old female with a past medical history of hypertension, type II dte-mopgbod-zpseephic diabetes mellitus, bilateral coroneal transplant, and osteoarthritis. She is currently admitted under orthopedic surgery team status post elective right total knee arthroplasty secondary to severe osteoarthritis of right knee. We were consulted for medical management throughout hospitalization. Physical exam: Patient seen and fully evaluated at bedside this morning. She was sitting up on the edge of bed and appears to be doing well. Patient is postoperative day 1 and reports pain is currently controlled and denies having any complaints at this time. Patient has been ambulating to and from restroom with use of walker and states she is doing well. Patient reports she just completed working with PT and was able to do the stairs without difficulties. Vital signs reviewed and stable. General: Nontoxic, no distress and appears stated age. Derm: Skin warm and dry, normal coloration for ethnicity. Head: Atraumatic, normocephalic and symmetric. Eyes: EOMs intact, no lid lag, and anicteric sclera Mouth: no lip lesions, mucus membranes moist Cardiovascular: regular rate and rhythm with normal S1S2, no murmur, positive posterior tibial pulses bilaterally, and cap refill < 2 seconds. Lungs: Respirations even, regular, and unlabored on room air. Lungs CTA bilat erally, no rhonchi, no rales, no wheezing, and no accessory muscle usage. Abdominal: soft, nontender to palpation, no guarding, no appreciable organomegaly Ext: No gross muscle atrophy, no edema, no contractures. Postsurgical dressing/Joseph wrap in place to right lower extremity/knee. Movement and sensation intact. Neuro: Speech clear, face symmetrical and CN II-XII grossly intact with no noted focal neuro deficits Psych: Alert and oriented to person, place, time, and situation. Appropriate and pleasant affect. Assessment and Plan of Care: Status post right total knee arthroplasty Management per primary admitting orthopedic surgery team including DVT prophylaxis, pain management, wound/dressing management, weightbearing, and PT/OT. Currently on DVT prophylaxis with aspirin 81 mg twice daily. Acute postoperative blood loss anemia, stable and expected finding. Stable and expected finding with preoperative hemoglobin of 13.2 and postoper ative hemoglobin of 10.8. No need for transfusion or any further interventions at this time. Postoperative leukocytosis, reactive and expected finding. WBC count 14.05. Cytosis is reactive secondary to surgical procedure, no signs of infection. No need for further intervention or repeat testing at this time. Hypokalemia Potassium 3.4. Orders placed for K-Dur 40 mEq p.o. x 1 dose. Type 2 diabetes mellitus with hyperglycemia. Patient to continue Rybelsus 7 mg daily and was placed on glycemic protocol with NovoLog sliding scale. Hemoglobin A1c to be obtained. Hypertension Patient to continue daily medication regimen with amlodipine 5 mg daily, hydrochlorothiazide 25 mg daily, and losartan 100 mg daily. History of bilateral corneal transplant Patient to continue prednisolone ophthalmology drops as directed. Data and imaging reviewed: -Postoperative labs reviewed. CBC showing leukocytosis with WBC count of 14.05 and acute blood loss anemia with hemoglobin stable at 10.8. BMP showing hypokalemia with potassium of 12.4 and slightly elevated anion gap of 12.40. Blood glucose was 139. Magnesium normal findings at 1.8. Hemoglobin A1c 5.9%. -Vital signs reviewed. Pressure 123/72, heart rate 83, respiratory rate 17, temp 98.5 F, and SpO2 of 96% on room air. Thank you for allowing us to participate in the care of this pleasant patient. Do not hesitate to contact us with questions. Someone can be reached from the [facility] hospitalist group all hours of the day at [phone] or via [employer] serve. Patient was seen independently by Nurse Practitioner. This document was prepared using [employer] dictation software. Please allow for errors in it instructor while rare they do occur. Objective - Vital Signs Vital signs: Vital Signs Temp 98.5 F 08/21/23 07:07 Pulse 83 08/21/23 07:07 Resp 17 08/21/23 07:07 BP 123/72 08/21/23 07:07 Pulse Ox 96 08/21/23 07:07 FiO2 Intake & Output 08/20/23 08/21/23 08/21/23 18:59 06:59 18:59 Intake Total 950 Output Total 200 Balance 750 Weight 87.1 kg Intake: IV 950 Output: Estimated Blood Loss 200 Other: Voiding Method Toilet Toilet # Voids 1 2 - Labs CBC & Chem 7: 08/21/23 06:49 08/21/23 06:49 Labs: Abnormal Lab Results - Last 24 Hours (Table) 08/20/23 08/21/23 Range/Units 17:18 05:59 POC Glucose (mg/dL) 178 H 124 H (70-110) mg/dL
== END 2023-08-21 13:47 | disposition home health service (06) ==
LOC: OR 05:55 → 4SSUR 10:58 → OR 08-21 13:47
PROVIDERS: ATTEND Orthopaedic Surgery
DX: M17.11 Unilateral primary osteoarthritis, right knee (principal); I10 Essential (primary) hypertension; E11.9 Type 2 diabetes mellitus without complications; G89.18 Other acute postprocedural pain
CPT/HCPCS: 0055T; 27447; 64447; 64999; 80048; 83036; 83735; 85025

== ENCOUNTER → 2023-09-13 | Outpatient (CLI) | payer MEDICARE ==
--- NOTE | 2023-09-19 19:29 | CT ---
EXAMINATION TYPE: CT left knee - [facility] Protocol DATE OF EXAM: 09/13/2023 COMPARISON: 08/20/2023 HISTORY: 77-year-old female M17.12 left gabriel knee TECHNIQUE: Contiguous axial scanning of the left knee without IV contrast. Coronal and sagittal recon structions performed. Additional scanning through the pelvis and both ankles for surgical planning pu rposes. CT DLP: 769 mGycm Automated exposure control for dose reduction was used. FINDINGS: Extensive sigmoid diverticulosis. There is some prominent pericolonic fat stranding along the mid sig moid colon and circumferential thickening. Correlate to exclude mild acute diverticulitis. No abscess or free air is seen here in the pelvis. Bladder distended. There is pelvic floor relaxation. Uterus and ovaries are visualized. Previous right total hip arthroplasty. Mild to moderate degenerative seth nge left hip. There is moderate left knee joint effusion. Moderate to severe narrowing of medial compartment cartil age and joint space. Os trigonum right ankle. IMPRESSION: 1. Extensive sigmoid diverticulosis. Findings along the mid sigmoid colon could represent chronic div erticulitis. Given the pericolonic stranding here, correlate with symptoms to exclude acute diverticu litis. No abscess or free air. 2. Tricompartmental osteoarthrosis, greatest in the medial compartment. Moderate knee joint effusion likely reactive. 3. Incidental pelvic floor relaxation.
== END | disposition home or self-care (01) ==
LOC: RADCTMAIN 11:59
PROVIDERS: ATTEND Orthopaedic Surgery
DX: M17.12 Unilateral primary osteoarthritis, left knee (principal); K57.30 Diverticulosis of large intestine without perforation or abscess without bleeding; M25.462 Effusion, left knee; E11.9 Type 2 diabetes mellitus without complications; N81.84 Pelvic muscle wasting; Z47.1 Aftercare following joint replacement surgery; Z96.651 Presence of right artificial knee joint

== ENCOUNTER 2023-10-06 10:38 | Inpatient (IN) | payer MEDICARE ==
[2023-10-06] MEDS ORDERED: DEXAMETHASONE SOD PHOSPHATE 4 MG/ML 1 ML VIAL ONE ×3 (11:48→12:41)
[2023-10-06] MEDS ORDERED: MIDAZOLAM 2 MG/2 ML VIAL ONE ×3 (11:48→12:41)
[2023-10-06] MEDS ORDERED: KETOROLAC 15 MG/ML 1 ML VIAL ONE ×2 (11:48)
[2023-10-06] MEDS ORDERED: ACETAMINOPHEN TAB 500 MG TAB ONE ×2 (11:48)
[2023-10-06] MEDS ORDERED: ONDANSETRON 4 MG/2 ML VIAL ONE ×2 (11:48)
[2023-10-06] MEDS ORDERED: DOCUSATE 100 MG CAP ONE ×2 (11:48)
[2023-10-06] MEDS ORDERED: FAMOTIDINE 20 MG/2 ML VIAL ONE ×2 (11:48)
[2023-10-06] MEDS ORDERED: oxyCODONE ER 10 MG TAB.ER.12H PO ONE ×2 (11:48)
[2023-10-06] MEDS ORDERED: SODIUM CHLORIDE 0.9% (PF) VIAL 20 ML ONE ×2 (11:49)
[2023-10-06] MEDS ORDERED: ROPIVACAINE 5 MG/ML 30 ML VIAL ONE ×3 (11:49→12:41)
[2023-10-06] MEDS ORDERED: DEXAMETHASONE SOD PHOSPHATE 10 MG/ML 1 ML VIAL ONE ×2 (11:49)
[2023-10-06] MEDS ORDERED: ROCURONIUM 10 MG/ML (5 ML VIAL) IV ONE (12:41)
[2023-10-06] MEDS ORDERED: KETAMINE HCL IN 0.9 % NACL 50 MG/5 ML SYRINGE ONE (12:41)
[2023-10-06] MEDS ORDERED: PROPOFOL 10 MG/ML 20 ML VIAL IV ONE (12:41)
[2023-10-06] MEDS ORDERED: PHENYLEPHRINE-0.9% NACL SYG 1,000 MCG/10 ML SYRINGE ONE (12:41)
[2023-10-06] MEDS ORDERED: SODIUM CHLORIDE 0.9% (PF) 10 ML VIAL ONE (12:41)
[2023-10-06] MEDS ORDERED: LIDOCAINE 1% INJ 10MG/ML (20 ML MDV) ONE (12:41)
[2023-10-06] MEDS ORDERED: SUCCINYLCHOLINE CHLORIDE 200 MG/10 ML VIAL IV ONE (12:41)
[2023-10-06] MEDS ORDERED: HYDROmorphone (PF) 1 MG/ML ONE (12:41)
[2023-10-06] MEDS ORDERED: GLYCOPYRROLATE 0.2 MG/ML 2 ML VIAL ONE (12:41)
[2023-10-06] MEDS ORDERED: NEOSTIGMINE 1 MG/ML 10 ML VIAL ONE (12:41)
[2023-10-06] MEDS ORDERED: LIDOCAINE 2% (PF) 20 MG/ML 2 ML VIAL ONE (12:41)
[2023-10-06] MEDS ORDERED: TRANEXAMIC 1,000 MG/100ML-NACL PREMIX BAG ONE (12:41)
[2023-10-06] MEDS ORDERED: fentaNYL (PF) 50 MCG/ML 2 ML AMP ONE (12:41)
[2023-10-06] MEDS ORDERED: SENNOSIDES-DOCUSATE SODIUM 1 EACH TAB PO ONE ×2 (22:37)
[2023-10-07] MEDS ORDERED: SODIUM CHLORIDE 0.9% 50 ML BAG ONE (00:01)
[2023-10-07] MEDS ORDERED: ceFAZolin 1,000 MG VIAL ONE (00:01)
[2023-10-07] MEDS ORDERED: HYDROcodone/APAP 5-325MG 1 EACH TAB ONE ×2 (03:38)
[2023-10-07] MEDS ORDERED: amLODIPine 5 MG TAB ONE ×2 (09:02)
[2023-10-07] MEDS ORDERED: ASPIRIN 81 MG ONE ×2 (09:03)
[2023-10-07] MEDS ORDERED: LOSARTAN 50 MG TAB ONE ×2 (09:03)
[2023-10-07] MEDS ORDERED: PANTOPRAZOLE 40 MG TABLET PO ONE ×2 (09:03)
[2023-10-07] MEDS ORDERED: HYDROcodone/APAP 10-325MG 1 EACH TAB ONE ×2 (09:56)
--- NOTE | 2023-10-08 15:58 | OP ---
OPERATIVE REPORT DATE OF SERVICE : 10/06/2023 PREOPERATIVE DIAGNOSIS: Left knee osteoarthritis. POSTOPERATIVE DIAGNOSIS: Left knee osteoarthritis. PROCEDURES PERFORMED: 1. Left total knee arthroplasty. 2. Computer-assisted musculoskeletal navigation using CT/MRI images. IMPLANTS: 1. [place] CR femur size #4. 2. [place] [employer] universal tibial baseplate, size #4. 3. [place] [employer] CS poly, size #4, 9 mm. 4. [place] [employer] all poly patella, size #29. ANESTHESIA: General plus block. SMALL MACHINE BINDERY OPERATOR: Logan Crouch PA-C (A skilled pharmaceutical assistant was required due to the complexity of the surgery for the patient positioning, surgical exposure, draping, retraction, closure of wound, and application of dressing). BLOOD LOSS: 100 mL. IV FLUIDS: 800 mL. PATHOLOGY: None sent. CONDITION: Stable. DISPOSITION: PACU. INDICATIONS FOR PROCEDURE: The patient is a very pleasant, relatively healthy, 78-year-old female who has had both a right total knee replacement and right total hip replacement done by me. Her right knee replacement was done in August. She did very well with this and has been healing well. She requested proceeding with a left total knee replacement, as she has done well with the right and already thinks this is her good knee. Having previously failed a long course of nonsurgical treatment, I thought that it was appropriate to proceed with surgery. Having previously undergone a right total knee replacement, she is well aware of the potential risks and complications. We discussed the risks again, which included risks from anesthesia, superficial site surgical infection, acute and on chronic type prosthetic joint infection, delayed wound healing, drainage, wound necrosis, instability, stiffness, stiffness requiring manipulation and/or revision surgery, damage to local blood vessels or nerves, aseptic loosening of the implants, extensor mechanism issues including disruption, patellar maltracking, avascular necrosis etc., continued or worsening knee pain, generalized dissatisfaction with surgical outcome, need for revision surgery, inability to regain preinjury level of function, DVT, PE, other medical complications, and possibly loss of life or limb. The patient voiced her understanding of these potential complications and also acknowledges that other less common complications are possible. She provided both her verbal and written consent to go forward with surgery. DESCRIPTION OF PROCEDURE: The patient was identified in the preoperative holding, and the correct operative extremity was verified and marked with a marker. I reviewed the consent form with the patient at length, all of her questions were answered. The patient was given a block by the Anesthesia. She was then brought back to the operating room. She was transferred on to the operating table, where general anesthetic, preoperative antibiotics, and tranexamic acid were administered by Anesthesia. A tourniquet was applied to the proximal aspect of her left leg. The contralateral right leg was padded under the heel and secured to the operating room table with a non-sterile boot, towel, and tape. The ipsilateral arm was carefully draped across the patient's chest and secured with a pillow and tape. A bolster was applied over the lateral aspect of the ipsilateral thigh and a bolster was placed under the ipsilateral foot. I have verified the operative extremity was stable with the knee flexion to 90 degrees. The operative extremity was then placed in a leg wong, non-sterile drapes were applied, and the extremity was prepped and draped in a standard sterile fashion. Prior to starting the surgery, a time-out was performed, identifying the correct patient, the operative extremity, and procedure, the patient's leg was then elevated, exaggerated with an Esmarch bandage, and the tourniquet was inflated to 250 mmHg. An anterior midline incision was made sharply with a scalpel. Once I dissected deep superficial facial layer, medial and lateral flaps were elevated and medial parapatellar arthrotomy was created. Upon opening the knee joint, there were diffuse arthritis changes in all three comparments. The anterior taylor of the medial meniscus was sharply released and a medial release was performed around the posteromedial corner to facilitate retractor placement. The fat pad was excised with electrocautery. The patella was found to be severely arthritic and a provisional cut was made with the sagittal saw to facilitate mobilization of the extension mechanism during the procedure. Remnants of the ACL and PCL were then excised from the notch, 4 mm pins were placed within the incision in the medial distal femur and proximal tibia. Arrays were applied to the pins and I verified that they were completely tighten. The knee was then registered with the [employer] robot and manipulations of implant position were made to balance the knee and to optimize implant position. Using the [employer] robotic saw, all cuts were made in accordance with our plan. After all bony fragments had been removed, the cuts were verified with planar probe. The tibia was then subluxed forward and sized. The knee was brought into flexion and the lamina negative developer was placed to allow removal of the meniscal remnants both medial and laterally as well as posterior osteophytes. Local anesthetic was then infiltrated on the joint capsule. Trial implants were then placed within the knee. Range of motion and collateral ligament tension were then evaluated. Adjustments in implant size and position were then made accordingly. Once the knee was felt to be appropriately balanced, the Grzegorz pins were removed. The patella was re-cut, sized, and punched. A trial patellar button was then placed with the trial implants in place. The patella tracks midline. The femur was then drilled and the trial components were removed. The trial tibial component was then appropriately rotated, pinned, and prepared for the keel. All trial components were then removed from the knee. The knee was thoroughly irrigated with pulsatile lavage and that was prepared via vacuum mixing in a bowl on the back table. I then hand pressurized cement into the femur and tibia and placed the implants beginning with the tibial base tray and poly liner, femoral component, and finally the patellar button. All excess cement was removed including from the pin sites. Once the cement had hardened, the knee was evaluated one time with the final polyethylene liner in place. The knee had full extension and flexion, felt stable to varus and valgus stress throughout the arc of motion. The tourniquet was released and with the tourniquet down, the patella tracked midline. All bleeders were controlled with electrocautery. The knee was then soaked for 3 minutes with a dilute Betadine soak. The knee was thoroughly irrigated using 3 liters of sterile saline and pulsatile lavage. The extensor mechanism was then reapproximated using pop-off Vicryl sutures, followed by a running barbed suture. The knee was then closed in layers with 0 Stratafix to the deep facial layer, 2-0 Stratafix to the superficial and subcutaneous layer, and Monocryl and steri-strips for the skin. A sterile dressing was applied. I verified that our instrument, sponge, and stirrup counts were correct. The patient was then transferred off the operating room table, extubated, and brought to the recovery having tolerated the procedure well. PLAN: The patient can weightbear as tolerated on her left lower extremity. DVT prophylaxis with aspirin 81 mg twice a day based on preoperative risk stratification. Internal Medicine was consulted for perioperative medical management. Two doses of postoperative antibiotics. Physical Therapy for gait training. Follow up in the office in 2 weeks for a wound check and x-rays including AP and lateral view of the left knee. MMODL / IJN: [id number] /
[2023-10-08] MEDS ORDERED: DOCUSATE 100 MG CAP ONE (21:34)
[2023-10-08] MEDS ORDERED: HYDROcodone/APAP 5-325MG 1 EACH TAB ONE ×2 (21:35)
[2023-10-08] MEDS ORDERED: oxyCODONE-APAP 5-325MG 1 EACH TAB ONE ×2 (21:42)
[2023-10-09] MEDS ORDERED: HYDROmorphone 0.5 MG/0.5 ML SYRINGE ONE ×4 (01:43→06:32)
--- NOTE | 2023-11-01 12:43 | XR ---
Patient: Rhonda Treviño Ordering Physician: Unknown, Unknown ID: [id number] Phone, Pager: Roger ne: N/A Pager: N/A : 1945 Age/Gender: 78Y, F Primary Location: N/A Procedure: XR knee limited LT Study Date: 10/06/2023 3:11:00 PM EXAMINATION TYPE: XR knee limited LT DATE OF EXAM: 10/06/2023 CLINICAL HISTORY: Postoperative evaluation Two views of the left knee are submitted. Identified are changes of total knee arthroplasty with fem oral and tibial components appearing well seated. Postsurgical soft tissue changes are noted. Align ment is anatomic.
== END 2023-10-07 12:59 | disposition home or self-care (01) | DRG 470 ==
LOC: OR 10:38 → 4SSUR 15:55
PROVIDERS: ADMIT Orthopaedic Surgery; ATTEND Orthopaedic Surgery
PROC: 8E0YXCZ Robotic Assisted Procedure of Lower Extremity (ICD-10-PCS; principal; 2023-10-07)
PROC: 0SRD0J9 Replacement of Left Knee Joint with Synthetic Substitute, Cemented, Open Approach (ICD-10-PCS; principal; 2023-10-07)
DX: M17.12 Unilateral primary osteoarthritis, left knee (principal); E11.9 Type 2 diabetes mellitus without complications; I10 Essential (primary) hypertension; E78.5 Hyperlipidemia, unspecified; Z96.641 Presence of right artificial hip joint; Z96.651 Presence of right artificial knee joint; Z79.82 Long term (current) use of aspirin; Z79.899 Other long term (current) drug therapy; Z94.7 Corneal transplant status

== ENCOUNTER 2023-10-08 04:40 | Observation (INO) | payer MEDICARE ==
[~2023-10-08 04:40] MED LIST changes: +ACET/COD 300 MG/30 MG STARTER PACK 6 TAB BTL PO ONE; -ACETAMINOPHEN TAB 500 MG TAB PO PRN; -DEXAMETHASONE SOD PHOSPHATE 10 MG/ML 1 ML VIAL IV PRN; -DEXAMETHASONE SOD PHOSPHATE 4 MG/ML 1 ML VIAL IV ONE; -DOCUSATE 100 MG CAP PO PRN; -FAMOTIDINE 20 MG/2 ML VIAL IVP PRN; -HYDROmorphone 0.5 MG/0.5 ML SYRINGE IVP PRN; +HYDROmorphone 1 MG/ML 1 ML SYRINGE ONE; -KETOROLAC 15 MG/ML 1 ML VIAL IVP PRN; -LIDOCAINE 1% (10MG/ML) FOR IV START INTRADERMA PRN; -MIDAZOLAM 2 MG/2 ML VIAL IV PRN; -ONDANSETRON 4 MG/2 ML VIAL IVP ONE; -ONDANSETRON 4 MG/2 ML VIAL IVP PRN; -ROPIVACAINE 246.25 MG, EPINEPHrine 0.5 MG, KETOROLAC (30 mg/mL) 30 MG, cloNIDine HCL/PF... MISCELLANE PRN; +SODIUM CHLORIDE 0.9% 1,000 ML BAG ONE; -TRANEXAMIC ACID IN NACL,ISO-OS 1,000 MG in SALINE 1 100ML.BAG IVPB PRN; -oxyCODONE ER 10 MG TAB.ER.12H PO PRN
[2023-10-08] MEDS ORDERED: KETOROLAC 15 MG/ML 1 ML VIAL IVP PRN (05:00)
[2023-10-08] MEDS ORDERED: KETOROLAC 15 MG/ML 1 ML VIAL ONE (05:12)
[2023-10-08] MEDS ORDERED: HYDROmorphone 1 MG/ML 1 ML SYRINGE ONE (05:12)
[2023-10-08] MEDS ORDERED: ONDANSETRON 4 MG/2 ML VIAL ONE (05:12)
[2023-10-08] MEDS ORDERED: HYDROmorphone 0.5 MG/0.5 ML SYRINGE ONE ×2 (11:08→17:54)
[2023-10-08] MEDS ORDERED: DOCUSATE 100 MG CAP ONE ×2 (15:11→21:30)
[2023-10-08] MEDS ORDERED: oxyCODONE-APAP 5-325MG 1 EACH TAB ONE ×3 (15:11→21:42)
[2023-10-09] MEDS ORDERED: HYDROmorphone 0.5 MG/0.5 ML SYRINGE ONE (01:43)
[2023-10-09] MEDS ORDERED: amLODIPine 5 MG TAB ONE (09:06)
[2023-10-09] MEDS ORDERED: ASPIRIN 81 MG ONE ×2 (09:06→21:04)
[2023-10-09] MEDS ORDERED: LOSARTAN 50 MG TAB ONE (09:07)
[2023-10-09] MEDS ORDERED: DOCUSATE 100 MG CAP ONE ×2 (09:07→23:59)
[2023-10-09] MEDS ORDERED: oxyCODONE-APAP 5-325MG 1 EACH TAB ONE ×4 (09:16→21:23)
[2023-10-09] MEDS ORDERED: SODIUM CHLORIDE 0.9% 1,000 ML BAG ONE (23:59)
[2023-10-10] MEDS ORDERED: NALOXONE 0.4 MG/ML 1 ML VIAL IVP PRN (00:01)
[2023-10-10] MEDS ORDERED: ONDANSETRON 4 MG/2 ML VIAL IVP PRN (00:02)
[2023-10-10] MEDS ORDERED: LORazepam 2 MG/ML INJ IV PRN (00:02)
[2023-10-10] MEDS ORDERED: oxyCODONE-APAP 5-325MG 1 EACH TAB PO PRN (00:03)
[2023-10-10] MEDS ORDERED: oxyCODONE-APAP 5-325MG 1 EACH TAB ONE ×2 (03:22→09:47)
[2023-10-10] MEDS: oxyCODONE-APAP 5-325MG 1 EACH TAB PO PRN (03:24)
[2023-10-10] MEDS: SODIUM CHLORIDE 0.9% 1,000 ML IV SCH (03:38)
[2023-10-10] MEDS ORDERED: ASPIRIN 81 MG ONE (08:11)
[2023-10-10] MEDS: ASPIRIN 81 MG PO SCH (08:13)
[2023-10-10] MEDS: DOCUSATE 100 MG CAP PO SCH (08:13)
[2023-10-10] MEDS: amLODIPine 5 MG TAB PO SCH (08:13)
[2023-10-10] MEDS: LOSARTAN 50 MG TAB PO SCH (08:13)
[2023-10-10 09:02] VITALS: BP 119/73; PULSE 75; TEMP 98.4
[2023-10-10 09:35] VITALS: RESP 18
--- NOTE | 2023-10-10 09:37 | P.DS ---
Providers Date of admission: 10/08/23 04:40 Attending physician: Ninoska Weinstein MD Consults: 10/09/23 20:45 Consult Physician Routine Consulting Provider: Marcelo Eldridge Consult Reason/Comments: post op pain Do you want consulting provider notified?: Already Contacted [facility] [place] Hospital Course: The patient is a very pleasant 78 rolled female who underwent an uncomplicated left total knee replacement this past Wednesday. She was discharged home on postoperative day #1 but readmitted to the hospital for intractable pain. She had a computed tomography scan which showed no acute fractures and an ultrasound which showed no evidence of DVT. She was transitioned from IV to oral pain medication. She worked with physical therapy and did well. On hospital day #2 I evaluated her at bedside. She is doing much better. Her pain was improved. The dressing over the anterior aspect of her knee was intact. There is mild swelling in her thigh and calf. She had weakness with knee extension the femoral nerve function was intact. She was able to actively plantarflex and dorsiflex her ankle and her toes. Plan - Discharge Summary New Discharge Prescriptions: New oxyCODONE-APAP 5-325MG [Percocet 5-325 mg] 1 tab PO Q4HR PRN 3 Days #18 tab PRN Reason: Pain No Action prednisoLONE ACETATE 1% OPHTH [Pred Forte 1%] 1 drops BOTH EYES Q48H hydroCHLOROthiazide [Hydrodiuril] 25 mg PO DAILY Acetaminophen Tab [Tylenol Tab] 1,000 mg PO Q6HR PRN #30 tablet PRN Reason: Pain Meloxicam [Mobic] 15 mg PO DAILY Ibuprofen [Motrin] 400 mg PO Q8HR PRN PRN Reason: Pain Semaglutide [Rybelsus] 7 mg PO DAILY Diclofenac Sodium Gel [Voltaren 1% Gel] 2 gm TOPICAL QID PRN PRN Reason: Pain Diclofenac Sodium [Voltaren] 75 mg PO BID #60 tab HYDROcodone/APAP 5-325MG [[place] 5-325] 1 - 2 tab PO Q6HR PRN #32 tab PRN Reason: Pain Omeprazole 40 mg PO DAILY #30 cap Losartan Potassium [Cozaar] 100 mg PO QAM amLODIPine [Norvasc] 5 mg PO QAM Aspirin 81 mg PO DAILY Aspirin 81 mg PO BID #60 tab Docusate [Colace] 100 mg PO BID #60 capsule Discharge Medication List Losartan Potassium [Cozaar] 100 mg PO QAM 11/14/21 [History] Aspirin 81 mg PO DAILY 09/18/22 [History] amLODIPine [Norvasc] 5 mg PO QAM 09/18/22 [History] hydroCHLOROthiazide [Hydrodiuril] 25 mg PO DAILY 09/18/22 [History] prednisoLONE ACETATE 1% OPHTH [Pred Forte 1%] 1 drops BOTH EYES Q48H 09/18/22 [History] Acetaminophen Tab [Tylenol Tab] 1,000 mg PO Q6HR PRN #30 tablet 09/19/22 [Rx] Ibuprofen [Motrin] 400 mg PO Q8HR PRN 07/27/23 [History] Meloxicam [Mobic] 15 mg PO DAILY 07/27/23 [History] Semaglutide [Rybelsus] 7 mg PO DAILY 07/27/23 [History] Diclofenac Sodium Gel [Voltaren 1% Gel] 2 gm TOPICAL QID PRN 08/10/23 [History] Aspirin 81 mg PO BID #60 tab 08/20/23 [Rx] Diclofenac Sodium [Voltaren] 75 mg PO BID #60 tab 08/20/23 [Rx] Docusate [Colace] 100 mg PO BID #60 capsule 08/20/23 [Rx] HYDROcodone/APAP 5-325MG [[place] 5-325] 1 - 2 tab PO Q6HR PRN #32 tab 08/20/23 [Rx] Omeprazole 40 mg PO DAILY #30 cap 08/20/23 [Rx] oxyCODONE-APAP 5-325MG [Percocet 5-325 mg] 1 tab PO Q4HR PRN 3 Days #18 tab 10/10/23 [Rx] Follow up Appointment(s)/Referral(s): Marcelo Eldridge MD [Medical Doctor] - 1 Week Activity/Diet/Wound Care/Special Instructions: 1. Weight bear as tolerated on the operative extremity, up with assistance and a walker 2. DVT prophylaxis with aspirin 81 mg BID 3. 2 doses of post operative antibiotics 4. Leave surgical dressing in place 5. Internal medicine for opal-operative medical management 6. Physical therapy for gait training and mobilization 7. Dispo: Discharge home later today if passes PT and pain controlled. Discharge Disposition: HOME WITH HOME HEALTH SERVICES
--- NOTE | 2023-10-10 14:40 | P.PN ---
Subjective Progress Note Date: 10/10/23 Hospital course: Patient is a pleasant 78-year-old female with a past medical history of hypertension, GERD, type 2 diabetes mellitus, and osteoarthritis. She is status post left total knee arthroplasty completed on 10/06/2023. She returned to the emergency department with a chief complaint of uncontrolled postoperative pain and swelling. She was admitted under orthopedic surgery team and we were consulted for medical management throughout her hospitalization. Left lower extremity Doppler was completed negative for DVT. CT scan left knee also completed showing general soft tissue swelling with moderate left knee joint effusion and some minimal bony debris's. Physical exam: Vital signs reviewed and stable. General: Nontoxic, no distress and appears stated age. Derm: Skin warm and dry, normal coloration for ethnicity. Head: Atraumatic, normocephalic and symmetric. Eyes: EOM's intact, no lid lag, and anicteric sclera Mouth: no lip lesions, mucus membranes moist Cardiovascular: regular rate and rhythm with normal S1S2, no murmur, positive posterior tibial pulses bilaterally, and cap refill < 2 seconds. Lungs: Respirations even, regular, and unlabored on room air. Lungs CTA bilaterally, no rhonchi, no rales, no wheezing, and no accessory muscle usage. Abdominal: soft, nontender to palpation, no guarding, no appreciable organomegaly Ext: ROM intact. No gross muscle atrophy, no edema, no contractures Neuro: Speech clear, face symmetrical and CN II-XII grossly intact with no noted focal neuro deficits Psych: Alert and oriented to person, place, time, and situation. Appropriate and pleasant affect. Assessment and Plan of Care: Uncontrolled postoperative pain Status post left total left knee arthroplasty completed 10/06/2023 Management per primary admitting orthopedic surgery team including DVT prophylaxis, pain management, weightbearing, and PT/OT. Currently DVT prophylaxis with aspirin 81 mg daily. Hypertension Continue amlodipine 5 mg daily and losartan 100 mg daily. Type II sfn-duweuoi-depeyzwfd diabetes mellitus Continue Rybelsus 7 mg daily. Vital signs reviewed. Blood pressure 119/73, heart rate 75, respiratory rate 16, temp 98.4 F, and SpO2 of 95% on room air. Patient was seen independently by Nurse Pracitioner. This document was prepared using [employer] dictation software. Please allow for errors in needle control cheniller, while rare they do occur. King Anna, IT COORDINATOR rendered care for this patient independently, reviewed the findings and plan as documented in the note above. I did not physically speak with or examine the patient on this date. Objective - Vital Signs Vital signs: Intake & Output 10/09/23 10/10/23 10/10/23 18:59 06:59 18:59 Weight 85.275 kg
--- NOTE | 2023-10-27 06:45 | CT ---
Patient: Rhonda Treviño Ordering Physician: Unknown, Unknown ID: [id number] Phone, Pager: Phone: N/A Pager: N/A : 1945 Age/Gender: 78Y, F Primary Location: N/A Procedure: CT knee LT wo con Study Date: 10/08/2023 10:44:00 AM EXAMINATION TYPE: CT knee LT wo con DATE OF EXAM: 10/08/2023 COMPARISON: Radiograph same day HISTORY: 78-year-old female postop left knee pain and swelling, status post BRIANNA total knee arthropla sty. TECHNIQUE: CT of the left knee without IV contrast. Coronal and sagittal reconstructions performed. CT DLP: 728.3 mGycm Automated exposure control for dose reduction was used. FINDINGS: Generalized cutaneous soft tissue swelling. A few scattered foci of soft tissue air likely related to the patient's operation. There is a moderate knee joint effusion; some minimal bony debris is noted within the lateral gutter of the suprapatellar pouch. Prominent metal artifact from the patient's tot al knee arthroplasty limits detailed soft tissue assessment. The quadriceps tendon appears to be inta ct. Patellar tendon not well seen due to the extensive streak and beam hardening artifact. No patella judi. Both femoral component and tibial tray components are well seated without periprosthetic fracture. Ce ment fills the 2 anterior tibial pin tracts. There are 2 medial pin tracts within the distal femoral metaphysis are also visualized without evidence for fracture through these sites. IMPRESSION: 1. SOFT TISSUE SWELLING AND A FEW SCATTERED FOCI OF SOFT TISSUE AIR RELATED TO THE PATIENT'S RECENT O PERATION. 2. THE TOTAL KNEE ARTHROPLASTY APPEARS WELL-SEATED WITHOUT FRACTURE OR OTHER COMPLICATION. NO FRACTUR E AT THE SITE OF THE PATIENT'S FEMORAL OR TIBIAL TRACKING PINS. 3. MODERATE KNEE JOINT EFFUSION LIKELY RELATES TO THE RECENT SURGERY. SOME MINIMAL BONY DEBRIS DEPEND ENT IN THE LATERAL GUTTER OF THE SUPRAPATELLAR POUCH.
--- NOTE | 2023-11-01 10:20 | XR ---
Patient: Rhonda Treviño Ordering Physician: Unknown, Unknown ID: [id number] Phone, Pager: Phone: N/A Pager: N/A : 1945 Age/Gender: 78Y, F Primary Location: N/A Procedure: CXR1 Study Date: 10/08/2023 7:11:19 AM EXAMINATION TYPE: XR chest 1V DATE OF EXAM: 10/08/2023 COMPARISON: NONE HISTORY: 78-year-old female postop knee pain TECHNIQUE: Single frontal view of the chest is obtained. FINDINGS: The heart is mildly enlarged. Low lung volumes. Hazy interstitial densities are present es pecially in the mid and lower lungs. IMPRESSION: Mild cardiomegaly with hypoventilatory changes and hazy and interstitial densities. Martin elate for CHF with pulmonary vascular congestion.
--- NOTE | 2023-11-01 10:21 | XR ---
Patient: Rhonda Treviño Ordering Physician: Unknown, Unknown ID: [id number] Phone, Pager: Phone: N/A Pager: N/A : 1945 Age/Gender: 78Y, F Primary Location: N/A Procedure: LEFT KNEE Study Date: 10/08/2023 7:04:30 AM EXAMINATION TYPE: XR knee complete LT DATE OF EXAM: 10/08/2023 COMPARISON: None HISTORY: 78-year-old female postop knee pain TECHNIQUE: 3 views FINDINGS: There is prominent generalized soft tissue swelling. Images show placement of left total knee arthrop lasty. Both distal femoral proximal tibial components and prosthesis appear well seated without perip rosthetic fracture. Anterior soft tissue swelling with intra-articular and soft tissue air related to recent operation. There is some overlap with the patient's right total knee arthroplasty on the late ral view. IMPRESSION: Generalized soft tissue swelling and scattered air. We note patient's recent surgery. Clinically diego elate. Otherwise, the left total knee arthroplasty remains well seated in gross anatomic alignment.
--- NOTE | 2023-11-03 16:01 | US ---
[facility] - Radiology Report Patient: Rhonda Seo Ordering Physician: Unknown, Unknown ID: [id number] Phone, Pager: Phone: N/A Pager: N/A : 1945 Age/Gender: 78Y, F Primary Location: N/A Procedure: US venous doppler duplex LE Study Date: 10/08/2023 10:23:00 AM EXAMINATION TYPE: US venous doppler duplex LE LT DATE OF EXAM: 10/08/2023 10:42 AM COMPARISON: NONE CLINICAL INDICATION: Unknown, old with history of ; SIDE PERFORMED: TECHNIQUE: The lower extremity deep venous system is examined utilizing real time linear array sonog kerry with graded compression, doppler sonography and color-flow sonography. VESSELS IMAGED: Common Femoral Vein Deep Femoral Vein Greater Saphenous Vein * Femoral Vein Popliteal Vein Small Saphenous Vein * Proximal Calf Veins (* superficial vessels) Left Leg: No visible DVT. IMPRESSION: Grayscale, color doppler, spectral doppler imaging performed of the deep veins of the lo wer extremities. There is normal flow, compressibility, vascular waveforms.
== END 2023-10-10 11:00 | disposition home or self-care (01) ==
LOC: DISRECOVER 04:40 → INTOOBSV 04:40 → 4SSUR 10-09 18:54 → UNDODISIN 10-10 11:00
PROVIDERS: ADMIT Internal Medicine; ATTEND Internal Medicine
DX: G89.18 Other acute postprocedural pain (principal); M17.12 Unilateral primary osteoarthritis, left knee; I10 Essential (primary) hypertension; K21.9 Gastro-esophageal reflux disease without esophagitis; E11.9 Type 2 diabetes mellitus without complications; Z96.652 Presence of left artificial knee joint; Z79.84 Long term (current) use of oral hypoglycemic drugs; Z79.899 Other long term (current) drug therapy
CPT/HCPCS: 96374; 96375; 96372; 99285; 97162; 85652; 87040; 73560; 71045; 93971; 73700; G0378 ×3; J2405; J1170 ×4; J1885

== ENCOUNTER → 2023-10-15 | Outpatient (CLI) | payer MEDICARE | END | disposition home or self-care (01) | LOC: LABPAT 15:04 | PROVIDERS: ATTEND Orthopaedic Surgery | DX: Z01.812 Encounter for preprocedural laboratory examination (principal); Z22.322 Carrier or suspected carrier of Methicillin resistant Staphylococcus aureus; E11.9 Type 2 diabetes mellitus without complications | CPT/HCPCS: 83036; 87070 ==

== ENCOUNTER → 2024-09-07 | Outpatient (CLI) | payer MEDICARE ==
[2024-09-07 15:27] LABS: Basophils # (A) 0.03 X 10*3/uL (0.00-0.10); Basophils % (A) 0.5 %; Eosinophils # (A) 0.12 X 10*3/uL (0.04-0.35); Eosinophils % (A) 1.8 %; HCT 38.3 % (37.2-46.3); HGB 12.5 g/dL (12.0-15.0); Immature Grans, Automated 0.30 %; Lymphocytes # (A) 2.48 X 10*3/uL (0.90-5.00); Lymphocytes % (A) 38.2 %; MCH 29.6 pg (27.0-32.0); MCHC 32.6 g/dL (32.0-37.0); MCV 90.8 FL (80.0-97.0); Monocytes # (A) 0.60 X 10*3/uL (0.20-1.00); Monocytes % (A) 9.2 %; NRBC Per 100 WBC 0 X 10*3/uL (0.00-0.01); Neutrophils # (A) 3.24 X 10*3/uL (1.80-7.70); Neutrophils % (A) 50.0 %; Platelet Count 222 X 10*3/uL (140-440); RBC 4.22 X 10*6/uL (4.10-5.20); RDW 15.0 % (11.5-14.5); WBC 6.49 X 10*3/uL (4.50-10.00)
[2024-09-07 16:18] LABS: ALT 26 U/L (8-44); AST 21 U/L (13-35); Albumin 4.0 g/dL (3.8-4.9); Albumin/Globulin Ratio 1.18 Ratio (1.60-3.17); Alkaline Phosphatase 41 U/L (41-126); Anion Gap 13.10 mmol/L (4.00-12.00); BUN/Creat Ratio 24.43 Ratio (12.00-20.00); Blood Urea Nitrogen 17.1 mg/dL (9.0-27.0); Calcium 9.6 mg/dL (8.7-10.3); Carbon Dioxide 23.9 mmol/L (21.6-31.8); Chloride 102 mmol/L (96-109); Cholesterol 170.00 mg/dL (0.00-200.00); Globulin 3.4 g/dL (1.6-3.3); Glucose 124 mg/dL (70-110); HDL Cholesterol 40.60 mg/dL (40.00-60.00); LDL Cholesterol,Calculated 95.0 mg/dL (0.0-131.0); Magnesium 2.0 mg/dL (1.5-2.4); Potassium 3.6 mmol/L (3.5-5.5); Sodium 139 mmol/L (135-145); Total Protein 7.4 g/dL (6.2-8.2); Triglycerides 172.00 mg/dL (0.00-149.00); VLDL Calculation 34.40 mg/dL (5.00-40.00)
== END | disposition home or self-care (01) ==
LOC: LABWHC1 07:49
PROVIDERS: ATTEND Internal Medicine
DX: I10 Essential (primary) hypertension (principal); E11.9 Type 2 diabetes mellitus without complications
CPT/HCPCS: 36415; 80053; 80061; 83036; 83735; 84443; 85025